=== PATIENT | male | born 1985 | race Caucasian/White ===

== ENCOUNTER → 2016-03-14 | Outpatient (CLI) | payer OTHER ==
--- NOTE | 2016-03-14 12:46 | XR ---
EXAMINATION TYPE: XR shoulder complete LT DATE OF EXAM: 03/14/2016 12:40 PM COMPARISON: NONE HISTORY: Pain TECHNIQUE: Left shoulder examined in 3 views FINDINGS: The humeral head articulates with the glenoid. The acromio-clavicular junction is normal. No acute fractures or dislocations are evident. A follow up study can be performed 7-10 days from acute trauma for continued pain. IMPRESSION: 1. Normal left Shoulder
== END | disposition home or self-care (01) ==
LOC: RADXRMAIN 12:23
PROVIDERS: ATTEND Family Medicine
DX: S46.012A Strain of muscle(s) and tendon(s) of the rotator cuff of left shoulder, initial encounter (principal)

== ENCOUNTER 2016-05-10 17:03 | Emergency (ER) | payer OTHER ==
[2016-05-10 17:42] VITALS: RESP 18; TEMP 98.2
--- NOTE | 2016-05-10 18:50 | ED ---
Psych HPI - General Source: patient, family, RN notes reviewed Mode of arrival: ambulatory <Tushar Barrientos - Last Filed: 05/10/16 18:49> <Emir Russo - Last Filed: 05/10/16 21:32> - General Chief Complaint: Psychiatric Symptoms Stated Complaint: Suicidal Time Seen by Provider: 05/10/16 17:50 - History of Present Illness Initial Comments: 30-year-old male presents emergency Department with chief complaint of depression, suicidal thoughts. Patient states that he hasn't lost any history of this problem. Patient does take medications currently see a psychiatrist. Patient states that symptoms are getting worse today. Patient does not have a plan. Denies any illicit drug or of all use. Patient offers no complaints. ( Tushar Barrietnos) - Related Data Home Medications Medication Instructions Recorded Confirmed Docusate Sodium [Stool Softener] 100 mg PO DAILY 07/21/13 05/10/16 FLUoxetine HCL [PROzac] 20 mg PO DAILY 05/10/16 05/10/16 Ferrous Sulfate [Feosol] 325 mg PO TID 05/10/16 05/10/16 Multivitamin [Multivitamins Adult 1 tab PO DAILY 05/10/16 05/10/16 Gummies] OLANZapine [ZyPREXA] 20 mg PO DAILY@1900 05/10/16 05/10/16 Allergies Allergy/AdvReac Type Severity Reaction Status Date / Time adhesive AdvReac Itching Verified 05/10/16 17:41 Review of Systems ROS Other: All systems not noted in ROS Statement are negative. <Tushar Barrientos - Last Filed: 05/10/16 18:49> ROS Other: All systems not noted in ROS Statement are negative. <Emir Russo - Last Filed: 05/10/16 21:32> ROS Statement: Those systems with pertinent positive or pertinent negative responses have been documented in the HPI. Past Medical History Past Medical History: GERD/Reflux Additional Past Medical History / Comment(s): anemia, growth delay History of Any Multi-Drug Resistant Organisms: None Reported Past Surgical History: No Surgical Hx Reported Past Anesthesia/Blood Transfusion Reactions: No Reported Reaction Past Psychological History: Anxiety, Depression, Schizophrenia Smoking Status: Never smoker Past Alcohol Use History: None Reported Past Drug Use History: None Reported - Past Family History Father Additional Family Medical History / Comment(s): Stomach surgery of unknown reason. <FloydTushar - Last Filed: 05/10/16 18:49> General Exam Limitations: no limitations General appearance: alert, in no apparent distress Head exam: Present: atraumatic, normocephalic, normal inspection Eye exam: Present: normal appearance, PERRL, EOMI. Absent: scleral icterus, conjunctival injection, periorbital swelling ENT exam: Present: normal exam, normal oropharynx, mucous membranes moist, TM's normal bilaterally Neck exam: Present: normal inspection, full ROM. Absent: tenderness, meningismus, lymphadenopathy Respiratory exam: Present: normal lung sounds bilaterally. Absent: respiratory distress, wheezes, rales, rhonchi, stridor Cardiovascular Exam: Present: regular rate, normal rhythm, normal heart sounds. Absent: systolic murmur, diastolic murmur, rubs, gallop, clicks GI/Abdominal exam: Present: soft, normal bowel sounds. Absent: distended, tenderness, guarding, rebound, rigid Neurological exam: Present: alert, oriented X3, CN II-XII intact Psychiatric exam: Present: flat affect Skin exam: Present: warm, dry, intact, normal color. Absent: rash <FloydTushar Siddharth - Last Filed: 05/10/16 18:49> Medical Decision Making <Tushar Barrientos - Last Filed: 05/10/16 18:49> <Emir Russo - Last Filed: 05/10/16 21:32> - Medical Decision Making The patient was evaluated by psychiatric nurse. Plans for the patient follow- up tomorrow for [facility] intake. Patient denying thoughts of hurting himself at this time. (Emir Russo) Disposition <Tushar Barrientos - Last Filed: 05/10/16 18:49> Time of Disposition: 21:32 <Emir Russo - Last Filed: 05/10/16 21:32> Clinical Impression: Depression Disposition: HOME SELF-CARE Condition: Stable Instructions: Depression (ED) Additional Instructions: Follow-up tomorrow morning as arranged with [facility]. Return emergency room as needed
[2016-05-10 21:42] VITALS: BP 123/63; PULSE 55
== END 2016-05-10 21:42 | disposition home or self-care (01) ==
LOC: EEVIPCON 17:03 → EC 17:03
DX: F32.9 Major depressive disorder, single episode, unspecified (principal); R45.851 Suicidal ideations; F20.9 Schizophrenia, unspecified; F41.9 Anxiety disorder, unspecified; Z79.899 Other long term (current) drug therapy; Z91.048 Other nonmedicinal substance allergy status
CPT/HCPCS: 82075; 99284

== ENCOUNTER 2016-06-22 10:35 | Day surgery (SDC) | payer OTHER ==
[2016-06-19 14:54] VITALS: BMI 21.9
[~2016-06-22 10:35] MED LIST: LACTATED RINGERS 1,000 ML IV SCH
[2016-06-22 11:13] VITALS: RESP 16; TEMP 98.4
[2016-06-22] MEDS ORDERED: LIDOCAINE 1% 20 ML VIAL (10MG/ML) FOR IV START INTRADERMA ONE (11:21)
[2016-06-22] MEDS ORDERED: LIDOCAINE 1% INJ 10MG/ML (20 ML MDV) ONE (11:57)
[2016-06-22] MEDS ORDERED: PROPOFOL 10 MG/ML 20 ML VIAL IV ONE (11:57)
--- NOTE | 2016-06-22 12:52 | P.PCN ---
Date of Procedure: 06/22/16 Procedure(s) Performed: Procedure: 1. Esophagogastroduodenoscopy and biopsy. 2. Total colonoscopy. Preoperative diagnosis: Iron deficiency anemia. Postoperative diagnosis: 1. Small sliding hiatal hernia with no obvious esophagitis or complicated reflux disease. 2. Mild antral gastritis. 3. Normal colonoscopy. Preparation: HalfLytely prep. Sedation: Was provided by anesthesia. Brief clinical history: The patient is a 30-year-old male who is referred for this evaluation for iron deficiency anemia to rule out the possibility of GI source of bleeding. Procedure: With the patient on his left lateral decubitus position and after informed consent and adequate sedation, I passed the Olympus-GIF 160 video upper endoscope through the cricopharyngeus down the esophagus. GE junction was around 36 cm from the incisors. There was small sliding hiatal hernia. The esophagus did not show any obvious erosions, ulcers, strictures or Silva' s esophagus. The stomach was then insufflated with air and inspected in detail including the retroflex view in the cardia. There was some minimal mottling and erythema in the antrum consistent with mild gastritis but no ulcers or erosions. Pyloric channel, duodenal bulb, post bulbar area and descending duodenum appeared within normal limit. Because of his symptoms, I obtained multiple biopsies from the duodenum, antrum and esophagus then the endoscope was withdrawn and I proceeded to do colonoscopy. Perianal area did not show any fissures or fistulas. There were no masses felt on digital rectal examination. The Olympus CFQ 160L video colonoscope was then inserted in the rectum in the usual fashion and advanced to the cecum. The mucosa appeared healthy. No polyps or tumors were seen or any obvious diverticular disease or bleeding. I retroflexed the endoscope in the rectum before the endoscope was withdrawn. The patient tolerated the procedure well. Plan: I discussed the findings with the patient and his family. Will await biopsy results and make further plans based on his course and biopsy results. He will follow up with you as planned.
[2016-06-22 13:25] VITALS: BP 102/68; PULSE 78
== END 2016-06-22 14:05 | disposition home or self-care (01) ==
LOC: ORWHC2ENDO 10:35
DX: D50.9 Iron deficiency anemia, unspecified (principal); K21.0 Gastro-esophageal reflux disease with esophagitis; K29.50 Unspecified chronic gastritis without bleeding; K44.9 Diaphragmatic hernia without obstruction or gangrene; F20.9 Schizophrenia, unspecified; Z79.899 Other long term (current) drug therapy
CPT/HCPCS: 88305; 88342; 45378; 43239; J2001; J2704

== ENCOUNTER → 2021-11-07 | Outpatient (CLI) | payer OTHER ==
--- NOTE | 2021-11-07 09:29 | US ---
EXAMINATION TYPE: US abdomen complete DATE OF EXAM: 11/07/2021 COMPARISON: NONE CLINICAL HISTORY: R11.2 NAUSEA WITH VOMITING, UNSPECIFIED. TECHNIQUE: Multiple sonographic images of the abdomen are obtained. FINDINGS: EXAM MEASUREMENTS: Liver Length: 15.1 cm Gallbladder Wall: cm CBD: 0.3 cm Spleen: 13.3 cm Right Kidney: 9.0 x 4.2 x 4.0 cm Left Kidney: 11.2 x 5.2 x 4.2 cm SOFTWARE LICENSING ANALYST NOTES: Pancreas: wnl Liver: Homogenous without evidence of mass Gallbladder: No gallstones Evidence for sonographic Whaley's sign: None CBD: wnl Spleen: wnl Right Kidney: wnl Left Kidney: wnl Upper IVC: wnl Abd Aorta: wnl Prominent thomas hepatis lymph nodes measuring up to 14 mm in short axis. The liver is homogenous. The intrahepatic portion of the IVC and proximal abdominal aorta are within normal limits. There is no evidence of cholelithiasis. Common bile duct is unremarkable. The visu alized portions of the pancreas are homogenous. The spleen is unremarkable. Kidneys are symmetric a nd free of hydronephrosis. No renal lesions are seen. IMPRESSION: No evidence for acute process.
== END | disposition home or self-care (01) ==
LOC: RADUSWWP 07:51
PROVIDERS: ATTEND Family Medicine
DX: R11.2 Nausea with vomiting, unspecified (principal)
CPT/HCPCS: 76700

== ENCOUNTER 2023-04-05 14:05 | Inpatient (IN) | payer MEDICAID, OTHER ==
[2023-04-05 15:09] LABS: Cocaine Screen,Urine Not Detected (NotDetected); Phencyclidine Screen,Urine Not Detected (NotDetected); Urn Cannabinoid Scrn Not Detected (NotDetected)
[2023-04-05 15:10] LABS: Amphetamine Screen,Urine Not Detected (NotDetected); Barbiturate Screen,Urine Not Detected (NotDetected); Benzodiazepines Screen,Urine Not Detected (NotDetected); Methadone Screen, Urine Not Detected (NotDetected); Opiate Screen,Urine Not Detected (NotDetected); Oxycodone Screen, Urine Not Detected (NotDetected); Tricyclic Antidepressant,Urine Not Detected (NotDetected)
--- NOTE | 2023-04-05 15:30 | ED ---
Psych HPI - General Source: patient, family, police, RN notes reviewed Mode of arrival: ambulatory Limitations: no limitations <Tushar Barrientos - Last Filed: 04/06/23 07:10> - General Source: patient, family, police, RN notes reviewed, old records reviewed Mode of arrival: ambulatory Limitations: no limitations, altered mental status - History of Present Illness MD Complaint: altered mental status, other (Psychosis) Associated Psychiatric Symptoms: homicidal ideation, racing thoughts, auditory hallucinations, visual hallucinations, delusions Quality: constant, getting worse Improves With: none Worsens With: none Associated Symptoms: denies other symptoms Treatments Prior to Arrival: placed on mental health hold <Tyree Davey - Last Filed: 04/09/23 07:53> - General Chief Complaint: Psychiatric Symptoms Stated Complaint: petition Time Seen by Provider: 04/05/23 14:15 - History of Present Illness Initial Comments: 37-year-old male presents emergency department with police for psychiatric evaluation. Patient states that he is very paranoid, feeling suicidal at times. Family states that he has been extremely paranoid standing outside because he believes devils in his house. Patient has not been taking his psychiatric medications denies any illicit drug use or alcohol use currently. (Tushar Barrientos) This is a 37-year-old male who presents today for psychiatric evaluation today by the police department and is under petition, patient is off his psychiatric medication (Tyree Davey) - Related Data Home Medications Medication Instructions Recorded Confirmed No Known Home Medications 04/05/23 04/05/23 Allergies Allergy/AdvReac Type Severity Reaction Status Date / Time adhesive AdvReac Itching Verified 04/05/23 21:42 Review of Systems ROS Other: All systems not noted in ROS Statement are negative. <Tushar Barrientos - Last Filed: 04/06/23 07:10> ROS Other: All systems not noted in ROS Statement are negative. <Tyree Davey - Last Filed: 04/09/23 07:53> ROS Statement: Those systems with pertinent positive or pertinent negative responses have been documented in the HPI. Past Medical History Past Medical History: GERD/Reflux Additional Past Medical History / Comment(s): anemia, growth delay History of Any Multi-Drug Resistant Organisms: None Reported Past Surgical History: No Surgical Hx Reported Past Anesthesia/Blood Transfusion Reactions: No Reported Reaction Past Psychological History: Anxiety, Depression, Schizophrenia Smoking Status: Current every day smoker Past Alcohol Use History: None Reported Past Drug Use History: None Reported - Past Family History Father Additional Family Medical History / Comment(s): Stomach surgery of unknown reason. <Tushar Barrientos - Last Filed: 04/06/23 07:10> General Exam Limitations: no limitations General appearance: alert, in no apparent distress Head exam: Present: atraumatic, normocephalic, normal inspection Eye exam: Present: normal appearance, PERRL, EOMI. Absent: scleral icterus, conjunctival injection, periorbital swelling ENT exam: Present: normal oropharynx (Edentulous), mucous membranes moist Neck exam: Present: normal inspection, full ROM. Absent: tenderness, meningismus, lymphadenopathy Respiratory exam: Present: normal lung sounds bilaterally. Absent: respiratory distress, wheezes, rales, rhonchi, stridor Cardiovascular Exam: Present: regular rate, normal rhythm, normal heart sounds. Absent: systolic murmur, diastolic murmur, rubs, gallop, clicks Neurological exam: Present: alert, oriented X3 Psychiatric exam: Present: anxious Skin exam: Present: warm, dry, intact, normal color. Absent: rash <Tushar Barrientos M - Last Filed: 04/06/23 07:10> General appearance: alert, in no apparent distress Head exam: Present: atraumatic, normocephalic, normal inspection Eye exam: Present: normal appearance, PERRL, EOMI. Absent: scleral icterus, conjunctival injection, periorbital swelling ENT exam: Present: normal exam, mucous membranes moist Neck exam: Present: normal inspection. Absent: tenderness, meningismus, lymphadenopathy Respiratory exam: Present: normal lung sounds bilaterally. Absent: respiratory distress, wheezes, rales, rhonchi, stridor Cardiovascular Exam: Present: regular rate, normal rhythm, normal heart sounds. Absent: systolic murmur, diastolic murmur, rubs, gallop, clicks GI/Abdominal exam: Present: soft, normal bowel sounds. Absent: distended, tenderness, guarding, rebound, rigid Extremities exam: Present: normal inspection, full ROM, normal capillary refill. Absent: tenderness, pedal edema, joint swelling, calf tenderness Back exam: Present: normal inspection Neurological exam: Present: alert, oriented X3, CN II-XII intact Psychiatric exam: Present: normal affect, normal mood Skin exam: Present: warm, dry, intact, normal color. Absent: rash <Tyree Davey - Last Filed: 04/09/23 07:53> Course <Tyree Davey - Last Filed: 04/09/23 07:53> Vital Signs 04/05/23 14:11 Temperature 98 F Pulse Rate 65 Respiratory 18 Rate Blood Pressure 109/71 O2 Sat by Pulse 97 Oximetry - Reevaluation(s) Reevaluation #1: 04/05/23 17:24 Record review (Tyree Davey) Reevaluation #2: 04/05/23 17:24 Care for psychiatric evaluation (Tyree Davey) Medical Decision Making <Tushar Barrientos - Last Filed: 04/06/23 07:10> - Lab Data Result diagrams: 04/06/23 07:56 04/06/23 07:56 <Tyree Davey - Last Filed: 04/09/23 07:53> - Medical Decision Making Was pt. sent in by a medical professional or institution (, PA, SENIOR BIOINFORMATICS SCIENTIST, urgent care, hospital, or shelter...) When possible be specific @ -No Did you speak to anyone other than the patient for history (EMS, parent, family, police, friend...)? What history was obtained from this source @ -Family providing significant history Did you review nursing and triage notes (agree or disagree)? Why? @ -I reviewed and agree with nursing and triage notes Were old charts reviewed (outside hosp., previous admission, EMS record, old EKG, old radiological studies, urgent care reports/EKG's, shelter records)? Report findings @ -No old charts were reviewed Differential Diagnosis (chest pain, altered mental status, abdominal pain women, abdominal pain men, vaginal bleeding, weakness, fever, dyspnea, syncope, headache, dizziness, GI bleed, back pain, seizure, CVA, palpatations, mental health, musculoskeletal)? @ -Differential Mental Health Depression, anxiety, bipolar, psychosis, schizophrenia, borderline personality, situational depression, adjustment disorder, behavioral disorder, brain tumor, malingering, substance abuse, encephalopathy, medication reaction, dementia, hypothyroidism, degenerative neurologic disorder, lupus.... This is not meant to be all-inclusive list EKG interpreted by me (3pts min.). @ -As above X-rays interpreted by me (1pt min.). @ -None done CT interpreted by me (1pt min.). @ -None done U/S interpreted by me (1pt. min.). @ -None done What testing was considered but not performed or refused? (CT, X-rays, U/S, labs)? Why? @ -None What meds were considered but not given or refused? Why? @ -None Did you discuss the management of the patient with other professionals (professionals i.e. , PA, SENIOR BIOINFORMATICS SCIENTIST, lab, RT, psych nurse, manager social work, sports marketing specialist, teacher, school resource officer, family manager)? Give summary @ -EPS evaluated the patient will be admitted for psychiatric treatment] Was smoking cessation discussed for >3mins.? @ -No Was critical care preformed (if so, how long)? @ -No Were there social determinants of health that impacted care today? How? (Homelessness, low income, unemployed, alcoholism, drug addiction, trans portation, low edu. Level, literacy, decrease access to med. care, skilled nursing, rehab)? @ -No Was there de-escalation of care discussed even if they declined (Discuss DNR or withdrawal of care, Hospice)? DNR status @ -No What co-morbidities impacted this encounter? (DM, HTN, Smoking, COPD, CAD, Cancer, CVA, ARF, Chemo, Hep., AIDS, mental health diagnosis, sleep apnea, morbid obesity)? @ -None Was patient admitted / discharged? Hospital course, mention meds given and route, prescriptions, significant lab abnormalities, going to OR and other pertinent info. @ -[Admitted to psychiatric services Undiagnosed new problem with uncertain prognosis? @ -No Drug Therapy requiring intensive monitoring for toxicity (Heparin, Nitro, Insulin, Cardizem)? @ -No Were any procedures done? @ -No Diagnosis/symptom? @ -Depression, suicidal ideation schizophrenia] Acute, or Chronic, or Acute on Chronic? @ -Acute Uncomplicated (without systemic symptoms) or Complicated (systemic symptoms)? @ -[Uncomplicated Side effects of treatment? @ -No Exacerbation, Progression, or Severe Exacerbation? @ -No Poses a threat to life or bodily function? How? (Chest pain, [place], [place], pneumonia, PE, COPD, DKA, ARF, appy, cholecystitis, CVA, Diverticulitis, Homicidal, Suicidal, threat to staff... and all critical care pts) @ -[Yes patient has suicidal (Tushar Barrientos) 37 male will be admitted for psychiatric evaluation and treatment (Tyree Davey) - Lab Data Lab Results 04/05/23 04/05/23 Range/Units 14:42 16:36 Urine Opiates Screen Not Detected (NotDetected) Ur Oxycodone Screen Not Detected (NotDetected) Urine Methadone Screen Not Detected (NotDetected) Ur Barbiturates Screen Not Detected (NotDetected) U Tricyclic Antidepress Not Detected (NotDetected) Ur Phencyclidine Scrn Not Detected (NotDetected) Ur Amphetamines Screen Not Detected (NotDetected) U Methamphetamines Scrn Not Detected (NotDetected) U Benzodiazepines Scrn Not Detected (NotDetected) Urine Cocaine Screen Not Detected (NotDetected) U Marijuana (THC) Screen Not Detected (NotDetected) Influenza Type A (PCR) Not Detected (Not Detectd) Influenza Type B (PCR) Not Detected (Not Detectd) RSV (PCR) Not Detected (Not Detectd) SARS-CoV-2 (PCR) Not Detected (Not Detectd) Disposition Is patient prescribed a controlled substance at d/c from ED?: No <Tushar Barrientos - Last Filed: 04/06/23 07:10> Is patient prescribed a controlled substance at d/c from ED?: No <Tyree Davey - Last Filed: 04/09/23 07:53> Clinical Impression: Schizophrenia, paranoid type, Psychosis, Acute psychosis Disposition: TRANSFER TO PSYCH HOSP/UNIT Condition: Fair
[2023-04-05] MEDS ORDERED: MAG HYDROX/AL HYDROX/SIMETH 30 ML CUP PO PRN (20:06)
[2023-04-05] MEDS ORDERED: IBUPROFEN 600 MG TAB PO PRN (20:06)
[2023-04-05] MEDS ORDERED: MAGNESIUM HYDROXIDE 2,400 MG/30 ML CUP PO PRN (20:06)
[2023-04-05] MEDS ORDERED: ACETAMINOPHEN TAB 325 MG TAB PO PRN (20:06)
[2023-04-05] MEDS ORDERED: LORazepam 2 MG/ML INJ IM PRN (20:11)
[2023-04-05] MEDS ORDERED: HALOPERIDOL LACTATE 5 MG/ML 1 ML VIAL IM PRN (20:11)
[2023-04-05] MEDS ORDERED: haloperidoL 5 MG TAB PO PRN (20:11)
[2023-04-05] MEDS ORDERED: LORazepam 1 MG TAB PO PRN (20:11)
[2023-04-06 08:34] LABS: Basophils % (A) 0 %; Eosinophils # (A) 0.2 k/uL (0-0.7); Eosinophils % (A) 1 %; HCT 41.3 % (39.0-53.0); HGB 13.1 gm/dL (13.0-17.5); Hypochromasia Slight; Lymphocytes # (A) 1.5 k/uL (1.0-4.8); Lymphocytes % (A) 13 %; MCH 25.1 pg (25.0-35.0); MCHC 31.9 g/dL (31.0-37.0); MCV 78.8 fL (80.0-100.0); Mean Platelet Volume 7.1; Monocytes # (A) 0.5 k/uL (0-1.0); Monocytes % (A) 4 %; Neutrophils # (A) 9.5 k/uL (1.3-7.7); Neutrophils % (A) 81 %; Platelet Count 316 k/uL (150-450); RBC 5.24 m/uL (4.30-5.90); RDW 13.9 % (11.5-15.5); WBC 11.8 k/uL (3.8-10.6)
[2023-04-06 08:46] LABS: Potassium 4.3 mmol/L (3.5-5.1)
[2023-04-06 08:47] LABS: ALT 10 U/L (4-49); AST 20 U/L (17-59); African American GFR (CKD) >90 (>60 ml/min/1.73 sqM); Albumin 4.3 g/dL (3.5-5.0); Alkaline Phosphatase 74 U/L (38-126); Anion Gap 13 mmol/L; Blood Urea Nitrogen 21 mg/dL (9-20); Calcium 9.5 mg/dL (8.4-10.2); Carbon Dioxide 25 mmol/L (22-30); Chloride 103 mmol/L (98-107); Glucose 85 mg/dL (74-99); Non-African American GFR(CKD) >90 (>60 ml/min/1.73 sqM); Sodium 141 mmol/L (137-145); Total Protein 8.1 g/dL (6.3-8.2)
[2023-04-06] MEDS ORDERED: NICOTINE 14MG/24HR PATCH TRANSDERM SCH (09:00)
[2023-04-06] MEDS ORDERED: MELATONIN 5 MG TABLET PO PRN (14:03)
--- NOTE | 2023-04-06 15:03 | P.HP ---
Psychiatric H&P - . H&P Date: 04/06/23 History & Physical: Allergies Allergy/AdvReac Type Severity Reaction Status Date / Time adhesive AdvReac Itching Verified 04/05/23 21:42 Vital Signs Temp 98.5 F 04/06/23 06:58 Pulse 67 04/06/23 06:58 Resp 14 04/06/23 06:58 BP 120/65 04/06/23 06:58 Pulse Ox 98 04/05/23 21:17 FiO2 Intake & Output 04/05/23 04/06/23 04/06/23 18:59 06:59 18:59 Weight 49.895 kg 46 kg 46 kg Laboratory Last Values WBC 11.8 k/uL (3.8-10.6) H 04/06/23 07:56 RBC 5.24 m/uL (4.30-5.90) 04/06/23 07:56 Hgb 13.1 gm/dL (13.0-17.5) 04/06/23 07:56 Hct 41.3 % (39.0-53.0) 04/06/23 07:56 MCV 78.8 fL (80.0-100.0) L 04/06/23 07:56 MCH 25.1 pg (25.0-35.0) 04/06/23 07:56 MCHC 31.9 g/dL (31.0-37.0) 04/06/23 07:56 RDW 13.9 % (11.5-15.5) 04/06/23 07:56 Plt Count 316 k/uL (150-450) 04/06/23 07:56 MPV 7.1 04/06/23 07:56 Neutrophils % 81 % 04/06/23 07:56 Lymphocytes % 13 % 04/06/23 07:56 Monocytes % 4 % 04/06/23 07:56 Eosinophils % 1 % 04/06/23 07:56 Basophils % 0 % 04/06/23 07:56 Neutrophils # 9.5 k/uL (1.3-7.7) H 04/06/23 07:56 Lymphocytes # 1.5 k/uL (1.0-4.8) 04/06/23 07:56 Monocytes # 0.5 k/uL (0-1.0) 04/06/23 07:56 Eosinophils # 0.2 k/uL (0-0.7) 04/06/23 07:56 Basophils # 0.0 k/uL (0-0.2) 04/06/23 07:56 Hypochromasia Slight 04/06/23 07:56 Sodium 141 mmol/L (137-145) 04/06/23 07:56 Potassium 4.3 mmol/L (3.5-5.1) 04/06/23 07:56 Chloride 103 mmol/L (98-107) 04/06/23 07:56 Carbon Dioxide 25 mmol/L (22-30) 04/06/23 07:56 Anion Gap 13 mmol/L 04/06/23 07:56 BUN 21 mg/dL (9-20) H 04/06/23 07:56 Creatinine 0.97 mg/dL (0.66-1.25) 04/06/23 07:56 Est GFR (CKD-EPI)AfAm >90 (>60 ml/min/1.73 sqM) 04/06/23 07:56 Est GFR (CKD-EPI)NonAf >90 (>60 ml/min/1.73 sqM) 04/06/23 07:56 Glucose 85 mg/dL (74-99) 04/06/23 07:[address] Glu mg/dL 108 mg/dL 04/06/23 07:56 Hemoglobin A1c 5.4 % (<=6.0) 04/06/23 07:56 Calcium 9.5 mg/dL (8.4-10.2) 04/06/23 07:56 Total Bilirubin 1.0 mg/dL (0.2-1.3) 04/06/23 07:56 AST 20 U/L (17-59) 04/06/23 07:56 ALT 10 U/L (4-49) 04/06/23 07:56 Alkaline Phosphatase 74 U/L (38-126) 04/06/23 07:56 Total Protein 8.1 g/dL (6.3-8.2) 04/06/23 07:56 Albumin 4.3 g/dL (3.5-5.0) 04/06/23 07:56 TSH 1.970 mIU/L (0.465-4.680) 04/06/23 07:56 Urine Opiates Screen Not Detected (NotDetected) 04/05/23 14:42 Ur Oxycodone Screen Not Detected (NotDetected) 04/05/23 14:42 Urine Methadone Screen Not Detected (NotDetected) 04/05/23 14:42 Ur Barbiturates Screen Not Detected (NotDetected) 04/05/23 14:42 U Tricyclic Antidepress Not Detected (NotDetected) 04/05/23 14:42 Ur Phencyclidine Scrn Not Detected (NotDetected) 04/05/23 14:42 Ur Amphetamines Screen Not Detected (NotDetected) 04/05/23 14:42 U Methamphetamines Scrn Not Detected (NotDetected) 04/05/23 14:42 U Benzodiazepines Scrn Not Detected (NotDetected) 04/05/23 14:42 Urine Cocaine Screen Not Detected (NotDetected) 04/05/23 14:42 U Marijuana (THC) Screen Not Detected (NotDetected) 04/05/23 14:42 Influenza Type A (PCR) Not Detected (Not Detectd) 04/05/23 16:36 Influenza Type B (PCR) Not Detected (Not Detectd) 04/05/23 16:36 RSV (PCR) Not Detected (Not Detectd) 04/05/23 16:36 SARS-CoV-2 (PCR) Not Detected (Not Detectd) 04/05/23 16:36 04/06/23 13:29 IDENTIFYING DATA: Patient is a 37-year-old male, currently lives alone in an apartment, has no kids, collect Social Security HPI: Patient presented to the hospital on 04/05 brought in by police for psychiatric evaluation. Patient was petitioned and stated that patient was talking about hearing voices from angels, has been walking around in the rain with no jacket, patient apparently has not been taking his medications at home. He was also claiming that he believes that there is a devil in his apartment. Patient was seen today laying in bed and agreeable to speak to teletypewriter operator briefly. He was a poor historian. He was fairly concrete, hesitant and tearful when teletypewriter operator attempted to speak with him. He had significant thought blocking during the interview. He was responding to internal stimuli as well. He was fairly illogical. He did not know today's date however does know his name and age. He spoke about "the Bible" however was not able to communicate his feelings. He appeared to be in mild distress. States that he is hearing voices and states that "it is mostly mean". Denies any visual hallucinations. Patient denies any suicidal or homicidal ideations intent or plan. At this time patient denies any visual hallucinations. Patient denies any flight of ideas racing thoughts and increased in goal directed behavior. Patient admits to using no recreational drugs or cigarettes. PAST PSYCHIATRIC HISTORY: Patient states that he has a history of intellectual disability and schizophrenia. Patient was previously on Seroquel, Prozac, Zyprexa. Patient was last psychiatrically hospitalized on mental health unit in 2013. Patient currently follows up with the nurse practitioner at [facility] last was seen early March. Patient denies any history of suicide attempts in the past. Past Medical History: GERD/Reflux Additional Past Medical History / Comment(s): anemia, growth delay History of Any Multi-Drug Resistant Organisms: None Reported Past Surgical History: No Surgical Hx Reported Past Anesthesia/Blood Transfusion Reactions: No Reported Reaction Past Psychological History: Anxiety, Depression, Schizophrenia Smoking Status: Current every day smoker Past Alcohol Use History: None Reported Past Drug Use History: None Reported ALLERGIES: as per EMR CHEMICAL DEPENDENCY HISTORY: as per HPI FAMILY PSYCHIATRIC/SUBSTANCE USE HISTORY: Denies SOCIAL HISTORY: Patient was born and raised in [place] and then moved to [place]. He denies any legal history. He has no kids, he collect Social Security. He lives alone in an apartment. MENTAL STATUS EXAM: General Appearance: Patient appears to be thin, poor dentition, long hair, stated age is alert, appears to be responding to internal stimuli. Patient appears to have poor hygiene and grooming. Behavior: Patient is laying in bed, tearful. Internally preoccupied Speech: Patient's speech is fluent and nonpressured. [place], hesitant Mood/Affect: Patient reports their mood is depressed, affect is congruent and tearful Suicidality/Homicidality: Patient denies having any homicidal ideation intent or plan. Denies any suicidal ideations intent or plan Perceptions: Patient denies any visual hallucinations claims that he is hearing voices. Though content/process: Delusional, bizarre, illogical. Wallace. Memory and concentration: AOX2, grossly intact for the purposes of this session. Cannot spell "WORLD" backwards Judgment and insight: Chronically limited/poor STRENGTHS/WEAKNESSES: strength is that patient is resilient. Weakness is that patient has poor judgment and is impulsive INTELLECT: Average IMPRESSIONS: Schizophrenia Noncompliance with medications PLAN: -Patient is admitted under involuntary status to MHU for stabilization of psychiatric symptoms and safety. Patient has not signed adult voluntary form and medication consent and is placed in patient's chart. A second certification was completed and along with petition will be filed for court. -Medications : Invega p.o. 3 mg nightly for psychosis, Zoloft 50 mg nightly for mood/anxiety, melatonin nightly as needed for sleep. -Ativan and Haldol PRN for agitation/aggression -Patient was informed of the risks, benefits and side effects of the medication -Internal Medicine consult to perform medical evaluation and physical. -NRT -not needed as patient does not smoke -SW on board for discharge planning. Encourage patient to participate in groups to work on coping skills. Will await deferral and court date. 04/06/23 14:56 04/06/23 15:02
--- NOTE | 2023-04-06 15:56 | P.HPIM ---
History of Present Illness H&P Date: 04/06/23 Chief Complaint: History and physical This is a 37-year-old gentleman well-known to the practice of both Dr. Wynne and Dr. Sun with past medical history significant for developmental delay, iron deficiency anemia, depression and multiple other medical issues. Patient had stopped taking his medications, feeling depressed, suicidal at times as well as paranoid. Family reported to ER that he was standing outside his house without a raincoat in the rain as he believed there to be devils in his house, hearing voices. Denies any chest pain, palpitations or shortness of breath. Maintaining O2 sats in the high 90s to 100% on room air. denies any lightheadedness dizziness or focal deficits. Denies nausea vomiting or diarrhea. Denies abdominal pain. Afebrile, WBC 11.8, hemoglobin 13.1, platelets 316, electrolytes within normal limits, hemoglobin A1c 5.4. Influenza type a/type B, RSV, COVID not detected. Toxicology screen negative. Review of Systems ROS Statement: Those systems with pertinent positive or pertinent negative responses have been documented in the HPI. ROS Other: All systems not noted in ROS Statement are negative Past Medical History Past Medical History: GERD/Reflux Additional Past Medical History / Comment(s): anemia, growth delay History of Any Multi-Drug Resistant Organisms: None Reported Past Surgical History: No Surgical Hx Reported Past Anesthesia/Blood Transfusion Reactions: No Reported Reaction Past Psychological History: Anxiety, Depression, Schizophrenia Smoking Status: Current every day smoker Past Alcohol Use History: None Reported Past Drug Use History: None Reported - Past Family History Father Additional Family Medical History / Comment(s): Stomach surgery of unknown reason. Medications and Allergies Home Medications Medication Instructions Recorded Confirmed Type No Known Home Medications 04/05/23 04/05/23 History Allergies Allergy/AdvReac Type Severity Reaction Status Date / Time adhesive AdvReac Itching Verified 04/05/23 21:42 Physical Exam Vitals: Vital Signs Temp Pulse Pulse Resp BP BP Pulse Ox 04/06/23 06:58 98.5 F 67 14 120/65 04/05/23 21:17 97.8 F 69 18 125/68 98 04/05/23 20:22 97.4 F L 86 18 123/72 100 04/05/23 14:11 98 F 65 18 109/71 97 Intake and Output 04/05/23 04/06/23 04/06/23 22:59 06:59 14:59 Other: Weight 46 kg 46 kg General: [Patient awake, alert and oriented times 3. Patient in no acute distr ess.] HEENT: [PERRL. EOMI. No pharyngeal erythema or exudate.] Neck: [No adenopathy.] Cardiac: [Heart regular in rate and rhythm. No S3. No S4. No clicks, rubs. No murmur.] Lungs: [Clear to auscultation bilaterally.] Abdomen: [No mass. No organomegaly. Bowel sounds presnt and normoactive in all 4 quadrants.] Extremes: [No edema no cyanosis no claudication normal pulses] Skin: [No rash.] Neurologic: [No lateralizing deficits. CN II - XII grossly intact.] Lymphatic: [No adenopathy.] Results CBC & Chem 7: 04/06/23 07:56 04/06/23 07:56 Labs: Abnormal Lab Results - Last 24 Hours (Table) 04/06/23 04/06/23 Range/Units 07:56 07:56 WBC 11.8 H (3.8-10.6) k/uL MCV 78.8 L (80.0-100.0) fL Neutrophils # 9.5 H (1.3-7.7) k/uL BUN 21 H (9-20) mg/dL Thrombosis Risk Factor Assmnt - Choose All That Apply Any of the Below Risk Factors Present?: No Other Risk Factors: No Thrombosis Risk Factor Assessment Level: Very Low Risk Assessment and Plan Assessment: Acute psychosis, noncompliance with medications Schizophrenia, paranoid by history Mental retardation by history Chronic mental illness Iron deficient anemia, history of Plan: Continue on current medication regime, monitoring and symptomatic treatment. Will continue to follow along prn. Please do not hesitate to call with any questions or concerns. The impression and plan of care has been dictated as directed. : I performed a history and examination of this patient, discussed the same with the dictator. I agree with the dictator's note ,documented as a scribe. Any additional findings or plans will be noted.
[2023-04-06] MEDS: PANTOPRAZOLE 40 MG TABLET PO SCH (16:28)
[2023-04-06] MEDS: SERTRALINE 50 MG TAB PO SCH (20:52)
[2023-04-06] MEDS: PALIPERIDONE 3 MG TAB.ER.24 PO SCH (20:52)
[2023-04-07] MEDS: PANTOPRAZOLE 40 MG TABLET PO SCH (08:23)
--- NOTE | 2023-04-07 11:26 | P.PN ---
Progress Note - Text Interval history: Patient was seen [wandering the hallways] and was directable and agreeable to speak with freelance copywriter. Reports hallucinations. At this time patient denies any suicidal or homicidal ideations intent or plan. Patient denies any side effects from the medications and has been compliant with meds. Mental status exam: General Appearance: [Patient appears to be older than stated age is alert, directable, and cooperative.] Behavior: [No agitated behavior. Patient is calm and directable] Speech: Patient's speech is fluent and nonpressured. Mood/Affect: Mood is improving mildly, affect is congruent and constricted. Suicidality/Homicidality: Patient denies having any suicidal or homicidal ideation intent or plan. Perceptions: Reports hallucinations, responding to internal stimuli, very internally preoccupied Though content/process: Delusions not elicited, goal-directed thought processes Memory and concentration: AOX3, grossly intact for the purposes of this session Judgment and insight: improving mildly Assessment/Plan: Continue with current diagnosis. Patient continues to meet criteria for inpatient psychiatric admission for symptom stabilization and safety.[Patient will be maintained on current psychotropic medication regimen.] Monitor for medication compliance and for any psychotropic medication side effects. Will continue to monitor ongoing response to treatment. Encouraged participation in milieu.
[2023-04-07] MEDS: PALIPERIDONE 3 MG TAB.ER.24 PO SCH (20:15)
[2023-04-07] MEDS: SERTRALINE 50 MG TAB PO SCH (20:15)
[2023-04-08 07:20] VITALS: RESP 16
[2023-04-08] MEDS: PANTOPRAZOLE 40 MG TABLET PO SCH (08:19)
--- NOTE | 2023-04-08 09:50 | P.PN ---
Progress Note - Text Interval history: Patient was seen [wandering the hallways] and was directable and agreeable to speak with chart writer. States that although he still hears voices, they are not bothering. At this time patient denies any suicidal or homicidal ideations intent or plan. Denies any visual hallucinations. Patient denies any side effects from the medications and has been compliant with meds. Mental status exam: General Appearance: [Patient appears to be older than stated age is alert, directable, and cooperative.] Malodorous. Poor hygiene and grooming Behavior: [No agitated behavior. Patient is calm and directable] Speech: Patient's speech is fluent and nonpressured. Mood/Affect: Mood is improving mildly, affect is congruent and constricted. Suicidality/Homicidality: Patient denies having any suicidal or homicidal ideation intent or plan. Perceptions: Reports auditory hallucinations. Responding to internal stimuli. Though content/process: [There is no evidence of any delusional thought content and thought process is linear and goal-directed.] Memory and concentration: AOX3, grossly intact for the purposes of this session Judgment and insight: Poor Assessment/Plan: Continue with current diagnosis. Patient continues to meet criteria for inpatient psychiatric admission for symptom stabilization and safety. Increase intake to 6 mg daily at bedtime. Continue all other medications Monitor for medication compliance and for any psychotropic medication side effects. Will continue to monitor ongoing response to treatment. Encouraged participation in milieu.
[2023-04-08] MEDS: SERTRALINE 50 MG TAB PO SCH (21:09)
[2023-04-08] MEDS: PALIPERIDONE 6 MG TAB.ER.24 PO SCH (21:09)
[2023-04-09] MEDS: PANTOPRAZOLE 40 MG TABLET PO SCH (08:06)
[2023-04-09] MEDS ORDERED: PALIPERIDONE IM 234 MG/1.5 ML SYG IM STA (11:03)
--- NOTE | 2023-04-09 11:07 | P.PN ---
Progress Note - Text Progress Note Date: 04/09/23 Interval history: Patient was seen today laying in bed and agreeable to speak to com writer. Patient appeared to be not responding to internal stimuli today. He was not tearful as well. He states that he is doing "a bit better". He continues to have poverty of content, some slight thought blocking. He did answer some questions, for the most part was fairly appropriate. Continues to have fairly limited insight and judgment. We spoke about transitioning onto a long-acting injection to help compliance. Patient still has not met with his traffic law attorney, Taiwo com writer spoke more about the involuntary process. He states that he is sleeping okay at nighttime, denies any problems with appetite. Denies any suicidal homicidal ideations intent or plan. Patient claims that the auditory hallucinations have been improving, denies any visual hallucinations. Denies any side effects. MENTAL STATUS EXAM: General Appearance: Patient appears to be thin, poor dentition, long hair, stated age is alert, more cooperative today. Patient appears to have improving mildly hygiene and grooming. Behavior: Patient is laying in bed, tearful. not Internally preoccupied Speech: Patient's speech is fluent and nonpressured. [place], hesitant, improving mildly Mood/Affect: Patient reports their mood is "a bit better", affect is congruent Suicidality/Homicidality: Patient denies having any homicidal ideation intent or plan. Denies any suicidal ideations intent or plan Perceptions: Patient denies any visual hallucinations claims that he is hearing voices. Though content/process: Poverty of content, concrete, improving Memory and concentration: AOX2, grossly intact for the purposes of this session Judgment and insight: Chronically limited/poor, improving mildly IMPRESSIONS: Schizophrenia Noncompliance with medications PLAN: -Patient is admitted under involuntary status to [facility]HU for stabilization of psychiatric symptoms and safety. Patient has not signed adult voluntary form and medication consent and is placed in patient's chart. A second certification was completed and along with petition will be filed for court. -Medications : Invega p.o. 6 mg nightly for psychosis, will give 234 mg IM Invega Sustenna today to help ensure compliance, next dose will be given on prior to discharge, Zoloft 50 mg nightly for mood/anxiety, melatonin nightly as needed for sleep. -Ativan and Haldol PRN for agitation/aggression -NRT -not needed as patient does not smoke -SW on board for discharge planning. Encourage patient to participate in groups to work on coping skills. Will await deferral and court date.possible discharge vs sunday once patient is transitioned onto [facility].
[2023-04-09] MEDS: SERTRALINE 50 MG TAB PO SCH (20:30)
[2023-04-09] MEDS: PALIPERIDONE 6 MG TAB.ER.24 PO SCH (20:30)
[2023-04-10 06:52] VITALS: TEMP 97.5
[2023-04-10] MEDS: PANTOPRAZOLE 40 MG TABLET PO SCH (08:54)
--- NOTE | 2023-04-10 12:09 | P.PN ---
Progress Note - Text Progress Note Date: 04/10/23 Interval history: Patient was seen today laying in bed and agreeable to speak to junior technical writer. Patient appeared to be not responding to internal stimuli today. Patient not attending many groups. He states that he is doing "a bit better". He continues to have poverty of content, some slight thought blocking. He did answer some questions, for the most part was fairly appropriate. Continues to have fairly limited insight and judgment. We spoke about transitioning onto a long-acting injection to help compliance. Pt meeting with business attorney for deferral today. He states that he is sleeping okay at nighttime, denies any problems with appetite. Denies any suicidal homicidal ideations intent or plan. Patient claims that the auditory hallucinations have been less distressing and are not command type, denies any visual hallucinations. Denies any side effects. Pt received long acting injection yesterday, tolerated well. MENTAL STATUS EXAM: General Appearance: Patient appears to be thin, poor dentition, long hair, stated age is alert, more cooperative today. Patient appears to have improving mildly hygiene and grooming. Behavior: Patient is laying in bed. not Internally preoccupied, more cooperative today. Speech: Patient's speech is fluent and nonpressured. [place], hesitant, impr oving mildly Mood/Affect: Patient reports their mood is "good", affect is congruent Suicidality/Homicidality: Patient denies having any homicidal ideation intent or plan. Denies any suicidal ideations intent or plan Perceptions: Patient denies any visual hallucinations claims that he is hearing voices. Mildly improving. Though content/process: Poverty of content, concrete, improving Memory and concentration: AOX2, grossly intact for the purposes of this session Judgment and insight: Chronically limited/poor, improving mildly IMPRESSIONS: Schizophrenia Noncompliance with medications PLAN: -Patient is admitted under involuntary status to MHU for stabilization of psychiatric symptoms and safety. Patient has not signed adult voluntary form and medication consent and is placed in patient's chart. A second certification was completed and along with petition will be filed for court. -Medications : Invega decreased to p.o. 3 mg nightly for psychosis, received 234 mg IM Invega Sustenna 04/09 to help ensure compliance, next dose od 156 mg IM will be given on Sunday prior to discharge, Zoloft 50 mg nightly for mood/anxiety, melatonin nightly as needed for sleep. -Ativan and Haldol PRN for agitation/aggression -NRT -not needed as patient does not smoke -SW on board for discharge planning. Encourage patient to participate in groups to work on coping skills. Will await deferral and court date.possible discharge sunday once patient is transitioned onto [facility].
[2023-04-10] MEDS: SERTRALINE 50 MG TAB PO SCH (21:09)
[2023-04-10] MEDS: PALIPERIDONE 3 MG TAB.ER.24 PO SCH (21:09)
[2023-04-11] MEDS: PANTOPRAZOLE 40 MG TABLET PO SCH (08:51)
--- NOTE | 2023-04-11 12:07 | P.PN ---
Progress Note - Text Progress Note Date: 04/11/23 Interval history: Patient was seen today up in hallway and agreeable to speak to short story writer. Patient appeared to not be responding to internal stimuli today. Patient not attending many groups. He states that he is doing "ok". He continues to have poverty of content, some slight thought blocking. He did answer some questions, for the most part was fairly appropriate. Continues to have fairly limited insight and judgment. He states that he is sleeping okay at nighttime, denies any problems with appetite. Denies any suicidal homicidal ideations intent or plan. Patient claims that the auditory hallucinations have been both "bad and good". denies any visual hallucinations. Denies any side effects. MENTAL STATUS EXAM: General Appearance: Patient appears to be thin, poor dentition, long hair, stated age is alert, cooperative today. Patient appears to have improving mildly hygiene and grooming. Behavior: Pt is cooperative today. Speech: Patient's speech is nonpressured. [place], hesitant, improving mildly Mood/Affect: Patient reports their mood is "ok", affect is congruent Suicidality/Homicidality: Patient denies having any homicidal ideation intent or plan. Denies any suicidal ideations intent or plan Perceptions: Patient denies any visual hallucinations claims that he is hearing voices. Mildly improving. Though content/process: Poverty of content, concrete, improving mildly Memory and concentration: AOX2, grossly intact for the purposes of this session Judgment and insight: Chronically limited/poor, improving mildly IMPRESSIONS: Schizophrenia Noncompliance with medications PLAN: -Patient is admitted under involuntary status to [facility] for stabilization of psychiatric symptoms and safety. Patient has not signed adult voluntary form and medication consent and is placed in patient's chart. -Medications : Invega p.o. 3 mg nightly for psychosis, received 234 mg IM Invega Sustenna 04/09 to help ensure compliance, next dose due 156 mg IM will be given on Sunday prior to discharge, increase Zoloft 75 mg nightly for mood/anxiety, melatonin nightly as needed for sleep. -Ativan and Haldol PRN for agitation/aggression -NRT -not needed as patient does not smoke -SW on board for discharge planning. Encourage patient to participate in groups to work on coping skills. signed deferral with attorney lawyer on 04/10. Possible discharge sunday once patient is transitioned onto [facility].
[2023-04-11 15:19] VITALS: BMI 18.5
[2023-04-11] MEDS: PALIPERIDONE 3 MG TAB.ER.24 PO SCH (20:13)
[2023-04-11] MEDS ORDERED: SERTRALINE 50 MG TAB PO SCH (21:00)
[2023-04-12 07:11] VITALS: BP 102/63; PULSE 74
[2023-04-12] MEDS: PANTOPRAZOLE 40 MG TABLET PO SCH (08:40)
--- NOTE | 2023-04-12 13:34 | P.PN ---
Progress Note - Text Progress Note Date: 04/12/23 Interval history: Patient was seen today up in hallway and agreeable to speak to typewriter assembly and parts inspector. Patient appeared to not be responding to internal stimuli today, he appeared to be smiling today and agreed to speak with typewriter assembly and parts inspector in the office. Patient has been going to all the groups he claims. States that he has been eating fairly. Mainly keeping to himself on the unit, has been following direction. He states that he is doing a bit better today, denies any anxiety or depression. States that the voices have also been improving in intensity. We spoke about transitioning onto the long-acting injection he will receive his second dose tomorrow morning, he is excited to go home tomorrow. He states that he is sleeping okay at nighttime, denies any problems with appetite. Denies any suicidal homicidal ideations intent or plan. denies any visual hallucinations. Denies any side effects. MENTAL STATUS EXAM: General Appearance: Patient appears to be thin, poor dentition, long hair, stated age is alert, more cooperative today. Patient appears to have improving mildly hygiene and grooming. Behavior: Pt is cooperative today. Smiling Speech: Patient's speech is nonpressured. [place], hesitant, improving mildly Mood/Affect: Patient reports their mood is "good", affect is congruent and imp roving Suicidality/Homicidality: Patient denies having any homicidal ideation intent or plan. Denies any suicidal ideations intent or plan Perceptions: Patient denies any visual hallucinations claims that he is hearing voices. Mildly improving. Though content/process: Poverty of content, concrete, improving mildly Memory and concentration: AOX2, grossly intact for the purposes of this session Judgment and insight: Chronically limited, improving mildly IMPRESSIONS: Schizophrenia Noncompliance with medications PLAN: -Patient is admitted under involuntary status to [facility] for stabilization of psychiatric symptoms and safety. Patient has not signed adult voluntary form and medication consent and is placed in patient's chart. -Medications : tapered off Invega p.o., pt received 234 mg IM Invega Sustenna 04/09 to help ensure compliance, next dose due 156 mg IM will be given on Sunday prior to discharge, monthly maintenance dose will be due on 05/04. increase Zoloft 100 mg nightly for mood/anxiety, melatonin nightly as needed for sleep. -Ativan and Haldol PRN for agitation/aggression -NRT -not needed as patient does not smoke -SW on board for discharge planning. Encourage patient to participate in groups to work on coping skills. signed deferral with deputy county attorney on 04/10. Possible discharge sunday once patient is transitioned onto [facility].
[2023-04-12] MEDS ORDERED: SERTRALINE 100 MG TAB PO SCH (21:00)
[2023-04-13] MEDS ORDERED: PALIPERIDONE IM 156 MG/ML SYG IM ONE (08:00)
[2023-04-13] MEDS: PANTOPRAZOLE 40 MG TABLET PO SCH (10:11)
--- NOTE | 2023-04-13 10:15 | P.DS ---
Providers Date of admission: 04/05/23 20:02 Expected date of discharge: 04/13/23 Attending physician: Lester Martino MD Consults: 04/05/23 20:06 Consult Physician Routine Consulting Provider: Mally Physician Consult Reason/Comments: H&P Do you want consulting provider notified?: Yes Primary care physician: Kofi Sun - Discharge Diagnosis(es) (1) Schizophrenia Current Visit: Yes Status: Acute Priority: High (2) Noncompliance Current Visit: Yes Status: Acute Priority: Medium (3) Intellectual disability Current Visit: Yes Status: Acute Priority: Medium Hospital Course: Admission HPI: Admission note was completed by speech writer "patient is a 37-year-old male, currently lives alone in an apartment, has no kids, collect Social Security. Patient presented to the hospital on 04/05 brought in by police for psychiatric evaluation. Patient was petitioned and stated that patient was talking about hearing voices from angels, has been walking around in the rain with no jacket, patient apparently has not been taking his medications at home. He was also claiming that he believes that there is a devil in his apartment. Patient was seen today laying in bed and agreeable to speak to speech writer briefly. He was a poor historian. He was fairly concrete, hesitant and tearful when speech writer attempted to speak with him. He had significant thought blocking during the interview. He was responding to internal stimuli as well. He was fairly illogical. He did not know today's date however does know his name and age. He spoke about "the Bible" however was not able to communicate his feelings. He appeared to be in mild distress. States that he is hearing voices and states that "it is mostly mean". Denies any visual hallucinations. Patient denies any suicidal or homicidal ideations intent or plan. At this time patient denies any visual hallucinations. Patient denies any flight of ideas racing thoughts and increased in goal directed behavior. Patient admits to using no recreational drugs or cigarettes." Hospital course: Upon admission to the unit patient was admitted involuntarily on a petition and certificate and a second certificate was completed and faxed with the courts. Patient ended up signing a deferral with the city attorney and agreeing to treatment. Patient got along well with other patients on the unit and followed unit protocol. Patient was compliant with the medications and denied any side effects throughout hospital course. Patient was started on Invega p.o up to a total of 6 mg daily, patient was transitioned onto Invega Sustenna given 234 mg IM on 04/09, second dose of 156 mg IM was given on 04/13, next monthly maintenance dose will be due on 05/10 117 mg IM. Patient was also started on Zoloft and increase the dose of 100 mg nightly for mood/anxiety, melatonin nightly as needed for sleep. Patient spoke of his stressors and engaged in therapy with groups. Patient was also seen by medical team for history and physical exam. Throughout the course of the hospitalization patient gradually improved with regards to mood, anxiety, psychosis, hallucinations, sleep and returned back to their baseline level of functioning. On the day of discharge patient denied any suicidal or homicidal ideations intent or plan denied any visual hallucinations, stated that his chronic AH have improved signifcantly and are now non distressing and less frequent. Patient endorsed wanting to live for future and health. The patient denied any access to guns or weapons. Patient denied any paranoia and did not endorse any delusions. Patient does not have a significant history of substance abuse and was counseled on abstaining from all substances including alcohol and marijuana. Patient was also counseled on the medications and need for regular compliance and was encouraged to follow-up with their outpatient appointment for mental health and also for primary care. Prior to discharge a family meeting will be arranged by rn social work to answer any questions and ensure safety upon discharge incuding making sure that guns/weapo ns are either removed from the home or locked away. Patient will be picked up by his mother today. Patient will be following up at [facility] regularly. Mental status exam: General Appearance: Patient appears to be thin, longer hair, poor dentition, stated age is alert, pleasant, and cooperative. Patient is in no acute distress and has improved hygiene and grooming Behavior: Patient is calmly seated without any agitated behavior. Speech: Patient's speech is fluent and nonpressured. Mood/Affect: Patient reports their mood is "good", affect is congruent and euthymic. Suicidality/Homicidality: Patient denies having any suicidal or homicidal ideation intent or plan. Perceptions: Patient denies any auditory or visual hallucinations. Though content/process: There is no evidence of any delusional thought content and thought process is linear. [place] Memory and concentration: AOX3, grossly intact for the purposes of this session. Judgment and insight: Chronically limited, improved with guarded prognosis Impression: Schizophrenia noncompliance with medication Intellectual disability Plan: -Continue with discharge today as patient has improved and stabilized psychiatrically and is not currently an imminent threat to themself and/or others. Patient will remain at chronically elevated risk for harm to self and/or others due to their chronic menatl illness and intellectual disability. -Continue medications: Invega p.o. was discontinued. Patient received Invega Sustenna 234 mg IM on 04/09, second dose of 156 mg IM was given on 04/13, monthly maintenance dose of 117 mg IM will be due on 05/10. Zoloft 100 mg nightly for mood/anxiety, melatonin nightly as needed for sleep -Patient was counseled on the need for medication compliance and appropriate follow-up at mental health and also primary care for medical issues. Patient verbalized understanding and agreed. -Social work to arrange for and conduct family meeting to ensure safety upon discharge and answer any questions/concerns and also to ensure safe home environment that guns/weapons are either removed from the home or locked away. Social work also to arrange for patients follow up appointments with [facility] for psychiatric care along with follow up with primary care provider. -Patient counseled on abstaining from recreational drugs and marijuana and alcohol. Was informed/educated on the adverse effects on their physical and mental health. Patient verbally agreed and understood. -Patient was instructed to return to the hospital or seek immediate medical care if their psychiatric or medical symptoms do worsen or reoccur. Allergies Allergy/AdvReac Type Severity Reaction Status Date / Time adhesive AdvReac Itching Verified 04/05/23 21:42 Laboratory Results WBC 11.8 k/uL (3.8-10.6) H 04/06/23 07:56 RBC 5.24 m/uL (4.30-5.90) 04/06/23 07:56 Hgb 13.1 gm/dL (13.0-17.5) 04/06/23 07:56 Hct 41.3 % (39.0-53.0) 04/06/23 07:56 MCV 78.8 fL (80.0-100.0) L 04/06/23 07:56 MCH 25.1 pg (25.0-35.0) 04/06/23 07:56 MCHC 31.9 g/dL (31.0-37.0) 04/06/23 07:56 RDW 13.9 % (11.5-15.5) 04/06/23 07:56 Plt Count 316 k/uL (150-450) 04/06/23 07:56 MPV 7.1 04/06/23 07:56 Neutrophils % 81 % 04/06/23 07:56 Lymphocytes % 13 % 04/06/23 07:56 Monocytes % 4 % 04/06/23 07:56 Eosinophils % 1 % 04/06/23 07:56 Basophils % 0 % 04/06/23 07:56 Neutrophils # 9.5 k/uL (1.3-7.7) H 04/06/23 07:56 Lymphocytes # 1.5 k/uL (1.0-4.8) 04/06/23 07:56 Monocytes # 0.5 k/uL (0-1.0) 04/06/23 07:56 Eosinophils # 0.2 k/uL (0-0.7) 04/06/23 07:56 Basophils # 0.0 k/uL (0-0.2) 04/06/23 07:56 Hypochromasia Slight 04/06/23 07:56 Sodium 141 mmol/L (137-145) 04/06/23 07:56 Potassium 4.3 mmol/L (3.5-5.1) 04/06/23 07:56 Chloride 103 mmol/L (98-107) 04/06/23 07:56 Carbon Dioxide 25 mmol/L (22-30) 04/06/23 07:56 Anion Gap 13 mmol/L 04/06/23 07:56 BUN 21 mg/dL (9-20) H 04/06/23 07:56 Creatinine 0.97 mg/dL (0.66-1.25) 04/06/23 07:56 Est GFR (CKD-EPI)AfAm >90 (>60 ml/min/1.73 sqM) 04/06/23 07:56 Est GFR (CKD-EPI)NonAf >90 (>60 ml/min/1.73 sqM) 04/06/23 07:56 Glucose 85 mg/dL (74-99) 04/06/23 07:[address] Glu mg/dL 108 mg/dL 04/06/23 07:56 Hemoglobin A1c 5.4 % (<=6.0) 04/06/23 07:56 Calcium 9.5 mg/dL (8.4-10.2) 04/06/23 07:56 Total Bilirubin 1.0 mg/dL (0.2-1.3) 04/06/23 07:56 AST 20 U/L (17-59) 04/06/23 07:56 ALT 10 U/L (4-49) 04/06/23 07:56 Alkaline Phosphatase 74 U/L (38-126) 04/06/23 07:56 Total Protein 8.1 g/dL (6.3-8.2) 04/06/23 07:56 Albumin 4.3 g/dL (3.5-5.0) 04/06/23 07:56 TSH 1.970 mIU/L (0.465-4.680) 04/06/23 07:56 Urine Opiates Screen Not Detected (NotDetected) 04/05/23 14:42 Ur Oxycodone Screen Not Detected (NotDetected) 04/05/23 14:42 Urine Methadone Screen Not Detected (NotDetected) 04/05/23 14:42 Ur Barbiturates Screen Not Detected (NotDetected) 04/05/23 14:42 U Tricyclic Antidepress Not Detected (NotDetected) 04/05/23 14:42 Ur Phencyclidine Scrn Not Detected (NotDetected) 04/05/23 14:42 Ur Amphetamines Screen Not Detected (NotDetected) 04/05/23 14:42 U Methamphetamines Scrn Not Detected (NotDetected) 04/05/23 14:42 U Benzodiazepines Scrn Not Detected (NotDetected) 04/05/23 14:42 Urine Cocaine Screen Not Detected (NotDetected) 04/05/23 14:42 U Marijuana (THC) Screen Not Detected (NotDetected) 04/05/23 14:42 Influenza Type A (PCR) Not Detected (Not Detectd) 04/05/23 16:36 Influenza Type B (PCR) Not Detected (Not Detectd) 04/05/23 16:36 RSV (PCR) Not Detected (Not Detectd) 04/05/23 16:36 SARS-CoV-2 (PCR) Not Detected (Not Detectd) 04/05/23 16:36 Vital Signs Temp 97.5 F L 04/10/23 06:30 Pulse 74 04/12/23 06:47 Resp 16 04/10/23 08:57 BP 102/63 04/12/23 06:47 Pulse Ox 100 04/10/23 08:57 FiO2 Intake & Output 04/12/23 04/13/23 04/13/23 18:59 06:59 18:59 Intake Total 300 Balance 300 Intake: Oral 300 Patient Condition at Discharge: Stable Plan - Discharge Summary Discharge Rx Participant: Yes New Discharge Prescriptions: New Pantoprazole [Protonix] 40 mg PO AC-BRKFST 30 Days #30 tab Sertraline [Zoloft] 100 mg PO HS 30 Days #30 tab Paliperidone Palmitate [Invega Sustenna] 117 mg IM QMONTHLY #1 each Melatonin 5 mg PO HS PRN 30 Days #30 tab PRN Reason: Insomnia Discharge Medication List Melatonin 5 mg PO HS PRN 30 Days #30 tab 04/13/23 [Rx] Paliperidone Palmitate [Invega Sustenna] 117 mg IM QMONTHLY #1 each 04/13/23 [Rx] Pantoprazole [Protonix] 40 mg PO AC-BRKFST 30 Days #30 tab 04/13/23 [Rx] Sertraline [Zoloft] 100 mg PO HS 30 Days #30 tab 04/13/23 [Rx] Follow up Appointment(s)/Referral(s): [facility] [Outside] - 04/13/23 2:00 pm (04/13@ 2pm with Fatoumata Valle 04/24@ 10am with Abi Justice NP 05/28@ 11am with Abi Justice NP) David Wynne Jr, [Doctor of Osteopathic Medicine] - 1-2 days Patient Instructions/Handouts: Schizophrenia (DC), Psychotic Disorder (DC) Activity/Diet/Wound Care/Special Instructions: Avoid the use of street drugs and alcohol. Take all medications as prescribed. When you are in need of refills on your medications, please contact your medical provider and/or outpatient psychiatrist/provider to have this done. Please go to your scheduled outpatient appointment for aftercare treatment. If symptoms return or become worse, call the crisis line at and/or go to the nearest emergency room for evaluation. National Suicide Hotline 988. Discharge Disposition: HOME SELF-CARE
== END 2023-04-13 11:58 | disposition home or self-care (01) | DRG 750 ==
LOC: EC 14:05 → 3MHU 20:02
PROVIDERS: ADMIT Psychiatry & Neurology Psychiatry; ATTEND Psychiatry & Neurology Psychiatry
DX: F20.0 Paranoid schizophrenia (principal); D50.9 Iron deficiency anemia, unspecified; F79 Unspecified intellectual disabilities; R45.851 Suicidal ideations; K21.9 Gastro-esophageal reflux disease without esophagitis; R45.850 Homicidal ideations; Z79.899 Other long term (current) drug therapy; Z91.148 Patient's other noncompliance with medication regimen for other reason; Z91.199 Patient's noncompliance with other medical treatment and regimen due to unspecified reason; Z11.52 Encounter for screening for COVID-19; Z60.2 Problems related to living alone; R45.1 Restlessness and agitation; F41.9 Anxiety disorder, unspecified; F06.31 Mood disorder due to known physiological condition with depressive features; F17.200 Nicotine dependence, unspecified, uncomplicated; Z71.3 Dietary counseling and surveillance; Z28.21 Immunization not carried out because of patient refusal
CPT/HCPCS: 80053; 80306; 83036; 84443; 85025; 87636; 99285

== ENCOUNTER 2023-04-13 14:46 | Inpatient (IN) | payer MEDICAID, OTHER ==
--- NOTE | 2023-04-13 17:14 | ED ---
Psych HPI - General Chief Complaint: Psychiatric Symptoms Stated Complaint: Mental Health Time Seen by Provider: 04/13/23 16:19 Source: patient, RN notes reviewed, old records reviewed Mode of arrival: ambulatory - History of Present Illness Initial Comments: Is a 37-year-old male to ER for evaluation today. Patient presents under petition for evaluation by psychiatric department, patient is acutely psychotic with depression and suicidal thoughts MD Complaint: suicidal ideation, feels depressed -: unknown Associated Psychiatric Symptoms: depression, suicidal ideation History of same: Yes Quality: constant Improves With: none Worsens With: none Associated Symptoms: denies other symptoms Treatments Prior to Arrival: placed on mental health hold If Self Harm: admits thoughts of self harm - Related Data Previous Rx's Medication Instructions Recorded Melatonin 5 mg PO HS PRN 30 Days #30 tab 04/13/23 Paliperidone Palmitate [Invega 117 mg IM QMONTHLY #1 each 04/13/23 Sustenna] Pantoprazole [Protonix] 40 mg PO AC-BRKFST 30 Days #30 tab 04/13/23 Sertraline [Zoloft] 100 mg PO HS 30 Days #30 tab 04/13/23 Allergies Allergy/AdvReac Type Severity Reaction Status Date / Time adhesive AdvReac Itching Verified 04/13/23 23:26 Review of Systems ROS Statement: Those systems with pertinent positive or pertinent negative responses have been documented in the HPI. ROS Other: All systems not noted in ROS Statement are negative. Past Medical History Past Medical History: GERD/Reflux Additional Past Medical History / Comment(s): anemia, growth delay History of Any Multi-Drug Resistant Organisms: None Reported Past Surgical History: No Surgical Hx Reported Past Anesthesia/Blood Transfusion Reactions: No Reported Reaction Past Psychological History: Anxiety, Depression, Schizophrenia Smoking Status: Current every day smoker Past Alcohol Use History: None Reported Past Drug Use History: None Reported - Past Family History Father Additional Family Medical History / Comment(s): Stomach surgery of unknown reason. General Exam Limitations: no limitations General appearance: alert, in no apparent distress Head exam: Present: atraumatic, normocephalic, normal inspection Eye exam: Present: normal appearance, PERRL, EOMI. Absent: scleral icterus, conjunctival injection, periorbital swelling ENT exam: Present: normal exam, mucous membranes moist Neck exam: Present: normal inspection. Absent: tenderness, meningismus, lymphadenopathy Respiratory exam: Present: normal lung sounds bilaterally. Absent: respiratory distress, wheezes, rales, rhonchi, stridor Cardiovascular Exam: Present: regular rate, normal rhythm, normal heart sounds. Absent: systolic murmur, diastolic murmur, rubs, gallop, clicks GI/Abdominal exam: Present: soft, normal bowel sounds. Absent: distended, tenderness, guarding, rebound, rigid Extremities exam: Present: normal inspection, full ROM, normal capillary refill. Absent: tenderness, pedal edema, joint swelling, calf tenderness Back exam: Present: normal inspection Neurological exam: Present: alert, oriented X3, CN II-XII intact Psychiatric exam: Present: normal affect, normal mood Skin exam: Present: warm, dry, intact, normal color. Absent: rash Course Vital Signs 04/13/23 15:01 Temperature 98.0 F Pulse Rate 74 Respiratory 18 Rate Blood Pressure 98/67 O2 Sat by Pulse 100 Oximetry - Reevaluation(s) Reevaluation #1: Medical records reviewed Reevaluation #2: Medical cleared for psychiatric evaluation Medical Decision Making - Medical Decision Making 37 male will be admitted for psychiatric evaluation and treatment - Lab Data Lab Results 04/13/23 04/13/23 Range/Units 19:50 20:02 Urine Opiates Screen Negative (Negative) Urine Methadone Screen Negative (Negative) Ur Propoxyphene Screen Negative (Negative) Urine Barbiturates Negative (Negative) Ur Phencyclidine Scrn Negative (Negative) Ur Amphetamine Screen Negative (Negative) U Benzodiazepines Scrn Negative (Negative) Urine Cocaine Screen Negative (Negative) U Cannabinoids Screen Negative (Negative) Urine Alcohol Negative (Negative) Influenza Type A (PCR) Not Detected (Not Detectd) Influenza Type B (PCR) Not Detected (Not Detectd) RSV (PCR) Not Detected (Not Detectd) SARS-CoV-2 (PCR) Not Detected (Not Detectd) Disposition Clinical Impression: Chronic schizophrenia, Intellectual disability, Schizophrenia, paranoid type, Acute psychosis Disposition: TRANSFER TO PSYCH HOSP/UNIT Condition: Fair Is patient prescribed a controlled substance at d/c from ED?: No
[2023-04-13] MEDS ORDERED: haloperidoL 5 MG TAB PO PRN (23:00)
[2023-04-13] MEDS ORDERED: MAGNESIUM HYDROXIDE 2,400 MG/30 ML CUP PO PRN (23:00)
[2023-04-13] MEDS ORDERED: HALOPERIDOL LACTATE 5 MG/ML 1 ML VIAL IM PRN (23:00)
[2023-04-13] MEDS ORDERED: LORazepam 2 MG/ML INJ IM PRN (23:00)
[2023-04-13] MEDS ORDERED: MAG HYDROX/AL HYDROX/SIMETH 30 ML CUP PO PRN (23:00)
[2023-04-14] MEDS: SERTRALINE 100 MG TAB PO SCH (00:14)
[2023-04-14 04:50] LABS: Urine Alcohol Negative (Negative); Urine Barbiturate Negative (Negative); Urine Cocaine Negative (Negative); Urine Methadone Negative (Negative); Urine Opiates Negative (Negative); Urine Phencyclidine Negative (Negative)
[2023-04-14] MEDS: PANTOPRAZOLE 40 MG TABLET PO SCH (08:23)
--- NOTE | 2023-04-14 10:58 | P.HP ---
Psychiatric H&P - . H&P Date: 04/14/23 History & Physical: Allergies Allergy/AdvReac Type Severity Reaction Status Date / Time adhesive AdvReac Itching Verified 04/13/23 23:26 Vital Signs Temp 98.0 F 04/14/23 00:02 Pulse 70 04/14/23 00:02 Resp 18 04/14/23 00:02 BP 120/68 04/14/23 00:02 Pulse Ox 98 04/14/23 00:02 FiO2 Intake & Output 04/13/23 04/14/23 04/14/23 18:59 06:59 18:59 Weight 49.895 kg 47.202 kg Laboratory Last Values Urine Opiates Screen Negative (Negative) 04/13/23 19:50 Urine Methadone Screen Negative (Negative) 04/13/23 19:50 Ur Propoxyphene Screen Negative (Negative) 04/13/23 19:50 Urine Barbiturates Negative (Negative) 04/13/23 19:50 Ur Phencyclidine Scrn Negative (Negative) 04/13/23 19:50 Ur Amphetamine Screen Negative (Negative) 04/13/23 19:50 U Benzodiazepines Scrn Negative (Negative) 04/13/23 19:50 Urine Cocaine Screen Negative (Negative) 04/13/23 19:50 U Cannabinoids Screen Negative (Negative) 04/13/23 19:50 Urine Alcohol Negative (Negative) 04/13/23 19:50 Influenza Type A (PCR) Not Detected (Not Detectd) 04/13/23 20:02 Influenza Type B (PCR) Not Detected (Not Detectd) 04/13/23 20:02 RSV (PCR) Not Detected (Not Detectd) 04/13/23 20:02 SARS-CoV-2 (PCR) Not Detected (Not Detectd) 04/13/23 20:02 04/14/23 10:50 IDENTIFYING DATA: Patient is a 37-year-old male, currently lives alone in an apartment, has no kids, collect Social Security HPI: Patient presented to the hospital yesterday several hours after being discharged from the mental health unit. Patient has a history of schizophrenia and intellectual disability. Patient was picked up by his mother on day of discharge yesterday taken to his home and apparently was acting paranoid, bizarre and refusing to go into his home. Apparently the patient was making statements of the devil being in his house and him hearing voices and believes that it was "tainted". Patient was brought back to the hospital by his mother/guardian. Patient was seen today for psychiatric assessment. He was laying in bed, staring at the ceiling. He did not appear to be responding to internal stimuli. Patient continues to be fairly hesitant and concrete in his speech and thought process. He explained that "the apartment was given to someone else" and was somewhat illogical. He did claim that he was hearing voices however "not right now". He continued to talk about angels and also demons. He is not reporting any problems with his medications at this time. States that he slept fairly last night. Patient appears to be fairly calm and follows directions. He had stated that denies any visual hallucinations. Patient denies any suicidal or homicidal ideations intent or plan. Patient denies any flight of ideas racing thoughts and increased in goal directed behavior. Patient admits to using no recreational drugs or cigarettes. PAST PSYCHIATRIC HISTORY: Patient states that he has a history of intellectual disability and schizophrenia. Patient has a history of taking Invega Sustenna, Zoloft, Seroquel, Prozac, Zyprexa. Patient was last psychiatrically hospitalized on mental health unit and was last discharged on 04/13/2023. Patient currently follows up with the nurse practitioner at [facility] last was seen early March. Patient denies any history of suicide attempts in the past. Past Medical History: GERD/Reflux Additional Past Medical History / Comment(s): anemia, growth delay History of Any Multi-Drug Resistant Organisms: None Reported Past Surgical History: No Surgical Hx Reported Past Anesthesia/Blood Transfusion Reactions: No Reported Reaction Past Psychological History: Anxiety, Depression, Schizophrenia Smoking Status: Current every day smoker Past Alcohol Use History: None Reported Past Drug Use History: None Reported ALLERGIES: as per EMR CHEMICAL DEPENDENCY HISTORY: as per HPI FAMILY PSYCHIATRIC/SUBSTANCE USE HISTORY: Denies SOCIAL HISTORY: Patient was born and raised in [place] and then moved to [place]. He denies any legal history. He has no kids, he collect Social Security. He lives alone in an apartment. MENTAL STATUS EXAM: General Appearance: Patient appears to be thin, poor dentition, long hair, stated age is alert, not responding to internal stimuli. Patient appears to have fair hygiene and grooming. Behavior: Patient is laying in bed, not tearful today. Smiling Speech: Patient's speech is fluent and nonpressured. [place], hesitant Mood/Affect: Patient reports their mood is "okay", affect is congruent Suicidality/Homicidality: Patient denies having any homicidal ideation intent or plan. Denies any suicidal ideations intent or plan Perceptions: Patient denies any visual hallucinations claims that he is hearing voices. Though content/process: Delusional, concrete, poverty of content Memory and concentration: AOX2, grossly intact for the purposes of this session. Cannot spell "WORLD" backwards Judgment and insight: Chronically limited/poor STRENGTHS/WEAKNESSES: strength is that patient is resilient. Weakness is that patient has poor judgment and is impulsive INTELLECT: Average IMPRESSIONS: Schizophrenia Intellectual disability Noncompliance with medications PLAN: -Patient is admitted under involuntary status to MHU for stabilization of psychiatric symptoms and safety. Patient is currently on a deferral. -Medications : Patient received Invega Sustenna 234 mg IM on 04/09, second dose of 156 mg IM was given on 04/13, monthly maintenance dose of 117 mg IM will be due on 05/10. Depending on how patient is doing will re-evaluate need for changing antipsychotic to FGA. Zoloft 100 mg nightly for mood/anxiety, melatonin nightly as needed for sleep -Ativan and Haldol PRN for agitation/aggression -Patient was informed of the risks, benefits and side effects of the medication -Internal Medicine consult to perform medical evaluation and physical. -NRT -not needed as patient does not smoke -SW on board for discharge planning. Encourage patient to participate in groups to work on coping skills. he is currently on a deferral. 04/14/23 10:51 04/14/23 10:53
[2023-04-14] MEDS ORDERED: SERTRALINE 100 MG TAB PO SCH (21:00)
--- NOTE | 2023-04-15 11:29 | P.PN ---
Progress Note - Text Progress Note Date: 04/15/23 Interval history: Patient was seen today for psychiatric follow-up in his room. He sat up on his bed. He appeared to have improvement in his affect today. States that he had difficulty sleeping last night. Continues to state that he hears voices, is not quite sure what they are saying to him. He was not responding to internal stimuli. Claims that he is eating fairly, mainly keeping himself on the unit. Denying any medication side effects. At this time he is denying any visual hallucinations. Denying any suicidal or homicidal ideations intent or plan. MENTAL STATUS EXAM: General Appearance: Patient appears to be thin, poor dentition, long hair, stated age is alert, not responding to internal stimuli. Patient appears to have fair hygiene and grooming. Behavior: Patient is laying in bed, not tearful today. Smiling Speech: Patient's speech is fluent and nonpressured. Street, hesitant Mood/Affect: Patient reports their mood is "ok", affect is congruent and improving Suicidality/Homicidality: Patient denies having any homicidal ideation intent or plan. Denies any suicidal ideations intent or plan Perceptions: Patient denies any visual hallucinations claims that he is hearing voices. Though content/process: Delusional, concrete, poverty of content Memory and concentration: AOX2, grossly intact for the purposes of this session Judgment and insight: Chronically limited/poor, improving mildly IMPRESSIONS: Schizophrenia Intellectual disability Noncompliance with medications PLAN: -Patient is admitted under involuntary status to MHU for stabilization of psychiatric symptoms and safety. Patient is currently on a deferral. -Medications : Patient received Invega Sustenna 234 mg IM on 04/09, second dose of 156 mg IM was given on 04/13, monthly maintenance dose of 117 mg IM will be due on 05/10. Depending on how patient is doing will re-evaluate need for changing antipsychotic to FGA. Zoloft 100 mg nightly for mood/anxiety, will add seroquel 25 mg qhs for adjunct psychosis/sleep. -Ativan and Haldol PRN for agitation/aggression -NRT -not needed as patient does not smoke -SW on board for discharge planning. Encourage patient to participate in groups to work on coping skills. he is currently on a deferral. patient will likely need placement in jail upon discharge, will discuss with [facility] possibillty of this.
--- NOTE | 2023-04-15 12:13 | P.HPIM ---
History of Present Illness H&P Date: 04/15/23 Chief Complaint: History of schizophrenia and intellectual disability Several hours after being discharged in the mental health unit at [facility] patient presented back for readmission secondary to paranoia refusing to go to his home patient was acting paranoid bizarre making statements of hearing voices and that the Devil was in his house that the house was tainted. Patient was brought back to the hospital emergency room by his mother/guardian and appears that this individual feels unsafe by himself at this time. He denies suicidal or homicidal ideations or intent or plan. Patient states that he hasn't smoked cigarettes for approximately the last month, primarily because he is been inpatient for the better part of the last month, patient does not use illicit drugs Review of Systems Constitutional: Reports as per HPI (Missing teeth) Ears, nose, mouth and throat: Reports as per HPI Cardiovascular: Reports as per HPI Respiratory: Reports as per HPI Gastrointestinal: Reports as per HPI Genitourinary: Reports as per HPI Musculoskeletal: Reports as per HPI Integumentary: Reports as per HPI Neurological: Reports as per HPI Psychiatric: Reports as per HPI, Reports anhedonia, Reports anxiety, Reports depression, Reports difficulty concentrating, Reports paranoia (Historical diagnosis of schizophrenia, intellectually challenged) Past Medical History Past Medical History: GERD/Reflux Additional Past Medical History / Comment(s): anemia, growth delay History of Any Multi-Drug Resistant Organisms: None Reported Past Surgical History: No Surgical Hx Reported Past Anesthesia/Blood Transfusion Reactions: No Reported Reaction Past Psychological History: Anxiety, Depression, Schizophrenia Smoking Status: Former smoker Past Alcohol Use History: None Reported Past Drug Use History: None Reported - Past Family History Father Additional Family Medical History / Comment(s): Stomach surgery of unknown reason. Congenital bone disorder, Intellectual disability Medications and Allergies Home Medications Medication Instructions Recorded Confirmed Type Melatonin 5 mg PO HS PRN 30 Days #30 tab 04/13/23 04/13/23 Rx Paliperidone Palmitate [Invega 117 mg IM QMONTHLY #1 each 04/13/23 04/13/23 Rx Sustenna] Pantoprazole [Protonix] 40 mg PO AC-BRKFST 30 Days #30 tab 04/13/23 04/13/23 Rx Sertraline [Zoloft] 100 mg PO HS 30 Days #30 tab 04/13/23 04/13/23 Rx Allergies Allergy/AdvReac Type Severity Reaction Status Date / Time adhesive AdvReac Itching Verified 04/13/23 23:26 Physical Exam Osteopathic Statement: *. No significant issues noted on an osteopathic structural exam other than those noted in the History and Physical/Consult. Vitals: Vital Signs Pulse BP 04/15/23 06:19 97 107/68 General: [Patient awake, alert and oriented times 3. Patient in no acute distress.] HEENT: [PERRL. EOMI. No pharyngeal erythema or exudate., Missing teeth Neck: [No adenopathy.] Cardiac: [Heart regular in rate and rhythm. No S3. No S4. No clicks, rubs. No murmur.] Lungs: [Clear to auscultation bilaterally.] Abdomen: [No mass. No organomegaly. Bowel sounds presnt and normoactive in all 4 quadrants.] Extremes: [No edema no cyanosis no claudication normal pulses] : Normal male genitalia Musculoskeletal: [No joint erythema, edema or tenderness.] Skin: [No rash.] Neurologic: [No lateralizing deficits. CN II - XII grossly intact.] Lymphatic: [No adenopathy.] Thrombosis Risk Factor Assmnt - Choose All That Apply Any of the Below Risk Factors Present?: No Other Risk Factors: No Other congenital or acquired thrombophilia - If yes, enter type in comment: No Thrombosis Risk Factor Assessment Level: Very Low Risk Assessment and Plan (1) Acute psychosis Current Visit: Yes Status: Acute Code(s): F23 - BRIEF PSYCHOTIC DISORDER SNOMED Code(s): 82865386339209 (2) Chronic schizophrenia Current Visit: Yes Status: Acute Code(s): F20.9 - SCHIZOPHRENIA, UNSPECIFIED SNOMED Code(s): 71584931 (3) Intellectual disability Current Visit: Yes Status: Acute Priority: Medium Code(s): F79 - UNSPECIFIED INTELLECTUAL DISABILITIES SNOMED Code(s): 292136967 (4) Schizophrenia, paranoid type Current Visit: Yes Status: Acute Code(s): F20.0 - PARANOID SCHIZOPHRENIA SNOMED Code(s): 98775900 (5) Noncompliance Current Visit: No Status: Acute Priority: Medium Code(s): Z91.199 - PT NONCOMPL WITH OTHER MED TRTMT AND REGIMEN D/T UNSP REASON SNOMED Code(s): 4636091 Plan: Patient is admitted to the mental health unit Was recently discharged and returned secondary to paranoia No new labs were drawn and are performed at this time Will continue to follow closely Thank you Dr. Martino for this most interesting consultation Time with Patient: Greater than 30
[2023-04-15] MEDS: QUEtiapine 25 MG TAB PO SCH (20:12)
--- NOTE | 2023-04-16 10:24 | P.PN ---
Progress Note - Text Progress Note Date: 04/16/23 Interval history: Patient was seen today for psychiatric follow-up in his room. He sat up on his bed, appeared to be smiling and was fairly pleasant with writer technical publications. Continues to be fairly concrete. Claims that he slept a bit better last night. He appeared to have improvement in his affect today. Continues to state that he hears voices, however states that they are improving and they are not distressing him today. He was not responding to internal stimuli. Claims that he is eating fairly, mainly keeping himself on the unit. Denying any medication side effects. At this time he is denying any visual hallucinations. Denying any suicidal or homicidal ideations intent or plan. MENTAL STATUS EXAM: General Appearance: Patient appears to be thin, poor dentition, long hair, stated age is alert, not responding to internal stimuli. Patient appears to have fair hygiene and grooming. Behavior: Patient is laying in bed, not tearful today. Smiling. More pleasant today. Speech: Patient's speech is fluent and nonpressured. [place], hesitant Mood/Affect: Patient reports their mood is "ok", affect is congruent and improving Suicidality/Homicidality: Patient denies having any homicidal ideation intent or plan. Denies any suicidal ideations intent or plan Perceptions: Patient denies any visual hallucinations claims that he is hearing voices, improving Though content/process: Delusional, concrete, poverty of content Memory and concentration: AOX2, grossly intact for the purposes of this session Judgment and insight: Chronically limited/poor, improving mildly IMPRESSIONS: Schizophrenia Intellectual disability Noncompliance with medications PLAN: -Patient is admitted under involuntary status to MHU for stabilization of psychiatric symptoms and safety. Patient is currently on a deferral. -Medications : Patient received Invega Sustenna 234 mg IM on 04/09, second dose of 156 mg IM was given on 04/13, monthly maintenance dose of 117 mg IM will be due on 05/10. Depending on how patient is doing will re-evaluate need for changing antipsychotic to FGA. 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 -Ativan and Haldol PRN for agitation/aggression -NRT -not needed as patient does not smoke -SW on board for discharge planning. Encourage patient to participate in groups to work on coping skills. he is currently on a deferral. patient will likely need placement in shelter upon discharge, will discuss with [facility] possibillty of this.
[2023-04-17] MEDS: ACETAMINOPHEN TAB 325 MG TAB PO PRN (02:15)
--- NOTE | 2023-04-17 09:47 | P.PN ---
Progress Note - Text Progress Note Date: 04/17/23 Interval history: Patient was seen today in his room. He sat up on his bed, appeared to be smil ing and was fairly pleasant with speech writer. States that he slept really well last night. He appeared to have improvement in his affect today. Continues to state that he hears voices, however, he states that they are not telling him to do anything bad. Claims that his appetite is good, and he is mainly isolating to his room. Denying any medication side effects. Spoke with patient about talking with [facility] to get him into a assisted, vs returning to his home. Patient agreeable that it would be better for him. At this time he is denying any visual hallucinations. Denying any suicidal or homicidal ideations intent or plan. MENTAL STATUS EXAM: General Appearance: Patient appears to be thin, poor dentition, long hair, stated age is alert. Patient appears to have fair hygiene and grooming. Behavior: Patient is laying in bed, Smiling. Pleasant. Speech: Patient's speech is fluent and nonpressured. Mood/Affect: Patient reports their mood is "ok", affect is congruent and improving Suicidality/Homicidality: Patient denies having any homicidal ideation intent or plan. Denies any suicidal ideations intent or plan Perceptions: Patient denies any visual hallucinations claims that he is hearing voices, mildly improving Though content/process: concrete, poverty of content Memory and concentration: AOX2, grossly intact for the purposes of this session Judgment and insight: Chronically limited/poor, improving mildly IMPRESSIONS: Schizophrenia Intellectual disability Noncompliance with medications PLAN: -Patient is admitted under involuntary status to MHU for stabilization of psychiatric symptoms and safety. Patient is currently on a deferral. -Medications : Patient received Invega Sustenna 234 mg IM on 04/09, second dose of 156 mg IM was given on 04/13, monthly maintenance dose of 117 mg IM will be due on 05/10. Depending on how patient is doing will re-evaluate need for changing antipsychotic to FGA. 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 -Ativan and Haldol PRN for agitation/aggression -NRT -not needed as patient does not smoke -SW on board for discharge planning. Encourage patient to participate in groups to work on coping skills. he is currently on a deferral. patient will likely need placement in assisted upon discharge, will discuss with the [facility] possibillty of this.
[2023-04-17] MEDS: LORazepam 1 MG TAB PO PRN (20:17)
--- NOTE | 2023-04-18 11:06 | P.PN ---
Progress Note - Text Progress Note Date: 04/18/23 Interval history: Patient was seen today in his room. He sat up on his bed, and was fairly plea ashlee with director underwriter sales. smiling during the conversartion. States that he slept well last night. He appeared to have some improvement in his affect today. Continues to state that he hears voices, however, he states that they are not telling him to do anything bad, only things like "to eat". Claims that his appetite is good, and he is mainly isolating to his room. Patient stated that he is showering. Aliya govea told the patient that he should try attending some groups, and interact with his peers. Patient verbalized understanding, and said he would try. Denying any medication side effects. At this time he is denying any visual hallucinations. Denying any suicidal or homicidal ideations intent or plan. MENTAL STATUS EXAM: General Appearance: Patient appears to be thin, poor dentition, long hair, s tated age is alert. Patient appears to have fair hygiene and grooming. Behavior: Patient is sitting in bed, Smiling. Pleasant. Speech: Patient's speech is fluent and nonpressured. Mood/Affect: Patient reports their mood is "ok", affect is congruent and improving Suicidality/Homicidality: Patient denies having any homicidal ideation intent or plan. Denies any suicidal ideations intent or plan Perceptions: Patient denies any visual hallucinations claims that he is hearing voices, mildly improving Though content/process: concrete, poverty of content mildly improving Memory and concentration: AOX2, grossly intact for the purposes of this session Judgment and insight: Chronically limited/poor, improving mildly IMPRESSIONS: Schizophrenia Intellectual disability Noncompliance with medications PLAN: -Patient is admitted under involuntary status to MHU for stabilization of psychiatric symptoms and safety. Patient is currently on a deferral. -Medications : Patient received Invega Sustenna 234 mg IM on 04/09, second dose of 156 mg IM was given on 04/13, monthly maintenance dose of 117 mg IM will be due on 05/10. Depending on how patient is doing will re-evaluate need for changing antipsychotic to FGA. 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 -Ativan and Haldol PRN for agitation/aggression -SW on board for discharge planning. Encouraged patient to participate in groups to work on coping skills. he is currently on a deferral. patient will likely need placement in [facility] upon discharge, will discuss with [facility] possibility of this.
--- NOTE | 2023-04-19 10:00 | P.PN ---
Progress Note - Text Progress Note Date: 04/19/23 Interval history: Patient was seen today in his room. He sat up on his bed. Patient continues to be smiling during the interaction. He states that he is doing "okay". Continues to be fairly concrete. He did not report any problems last night. States that he slept fairly well. He has not been going to many groups however did state that he spoke with [facility] yesterday about his placement however did not understand where he will be going. Claims that his appetite is good, and he is mainly isolating to his room. Denying any medication side effects. At this time he is denying any visual hallucinations. Denying any suicidal or homicidal ideations intent or plan. MENTAL STATUS EXAM: General Appearance: Patient appears to be thin, poor dentition, long hair, stated age is alert. Patient appears to have fair hygiene and grooming. Behavior: Patient is sitting in bed, Smiling. Pleasant. Speech: Patient's speech is fluent and nonpressured. Mood/Affect: Patient reports their mood is "ok", affect is congruent and improving Suicidality/Homicidality: Patient denies having any homicidal ideation intent or plan. Denies any suicidal ideations intent or plan Perceptions: Patient denies any visual hallucinations claims that he is hearing voices, improving Though content/process: concrete, poverty of content mildly improving Memory and concentration: AOX2, grossly intact for the purposes of this session Judgment and insight: Chronically limited/poor, improving mildly IMPRESSIONS: Schizophrenia Intellectual disability Noncompliance with medications PLAN: -Patient is admitted under involuntary status to MHU for stabilization of psychiatric symptoms and safety. Patient is currently on a deferral. -Medications : Patient received Invega Sustenna 234 mg IM on 04/09, second dose of 156 mg IM was given on 04/13, monthly maintenance dose of 117 mg IM will be due on 05/10. Depending on how patient is doing will re-evaluate need for changing antipsychotic to FGA. 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 -Ativan and Haldol PRN for agitation/aggression - on board for discharge planning. Encouraged patient to participate in groups to work on coping skills. he is currently on a deferral. patient will likely need placement in correction upon discharge, will discuss with [facility] possibility of this.
--- NOTE | 2023-04-20 11:15 | P.PN ---
Progress Note - Text Progress Note Date: 04/20/23 Interval history: Patient was seen today in his room. He was lying in bed. Patient seems bright today, smiling during interview. He states that he is doing "good". Continues to be fairly concrete. He did not report any problems last night. States that he slept fairly well. Spoke with patient about discharge, and told him we are waiting on what his guardian and [facility], as to where to place him upon discharge. Patient states that he is still hearing the voices at times, but they are not saying bad things. Claims that his appetite is good, and he is mainly isolating to his room. Denying any medication side effects. At this time he is denying any visual hallucinations. Denying any suicidal or homicidal ideations intent or plan. MENTAL STATUS EXAM: General Appearance: Patient appears to be thin, poor dentition, long hair, stated age is alert. Patient appears to have fair hygiene and grooming. Behavior: Patient is sitting in bed, Smiling. Pleasant. Speech: Patient's speech is fluent and nonpressured. Mood/Affect: Patient reports their mood is "good", affect is congruent and im proving Suicidality/Homicidality: Patient denies having any homicidal ideation intent or plan. Denies any suicidal ideations intent or plan Perceptions: Patient denies any visual hallucinations claims that he is hearing voices, improving Though content/process: concrete, poverty of content mildly improving Memory and concentration: AOX2, grossly intact for the purposes of this session Judgment and insight: Chronically limited/poor, improving mildly IMPRESSIONS: Schizophrenia Intellectual disability Noncompliance with medications PLAN: -Patient is admitted under involuntary status to [facility]HU for stabilization of psychiatric symptoms and safety. Patient is currently on a deferral. -Medications : Patient received Invega Sustenna 234 mg IM on 04/09, second dose of 156 mg IM was given on 04/13, monthly maintenance dose of 117 mg IM will be due on 05/10. 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 -Ativan and Haldol PRN for agitation/aggression - on board for discharge planning. Encouraged patient to participate in groups to work on coping skills. he is currently on a deferral. [facility] declined long-term for him. will need to have a meeting with edith and [facility] to discuss other options, likely will need to have a new apartment and close [facility] follow up.
--- NOTE | 2023-04-21 17:05 | P.PN ---
Progress Note - Text Progress Note Date: 04/21/23 Interval history: Patient was seen today in his room. He was lying in bed. Patient seems bright today, smiling during interview. He states that he is doing "good". Denies depression and anxiety. Continues to be fairly concrete. He did not report any problems last night. He reports having some trouble with sleeping last night but admits to having slept during the daytime yesterday. He endorses auditory hallucinations but states that he is not experiencing this currently. He endorses improvement in auditory hallucinations since being on medication. Claims that his appetite is good, and he is mainly isolating to his room. He endorses fair energy and denies any other concerns. Denying any medication side effects. At this time he is denying any visual hallucinations. Denying any suicidal or homicidal ideation intent or plan. MENTAL STATUS EXAM: General Appearance: Patient appears to be thin, poor dentition, long hair, stated age is alert. Patient appears to have fair hygiene and grooming. Behavior: Patient is sitting in bed, Smiling. Pleasant. Speech: Patient's speech is fluent and nonpressured. Mood/Affect: Patient reports their mood is "good", affect is congruent and improving Suicidality/Homicidality: Patient denies having any homicidal ideation intent or plan. Denies any suicidal ideations intent or plan Perceptions: Patient denies any visual hallucinations claims that he is hearing voices, improving Though content/process: concrete, poverty of content mildly improving Memory and concentration: AOX2, grossly intact for the purposes of this session Judgment and insight: Chronically limited/poor, improving mildly IMPRESSIONS: Schizophrenia Intellectual disability Noncompliance with medications PLAN: -Patient is admitted under involuntary status to MHU for stabilization of psychiatric symptoms and safety. Patient is currently on a deferral. -Medications : Patient received Invega Sustenna 234 mg IM on 04/09, second dose of 156 mg IM was given on 04/13, monthly maintenance dose of 117 mg IM will be due on 05/10. 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 -Ativan and Haldol PRN for agitation/aggression - on board for discharge planning. Encouraged patient to participate in groups to work on coping skills. he is currently on a deferral. [facility] declined care home for him. will need to have a meeting with edith and the [facility] to discuss other options, likely will need to have a new apartment and close the [facility] follow up.
--- NOTE | 2023-04-22 18:20 | P.PN ---
Progress Note - Text Progress Note Date: 04/22/23 Interval history: Patient was seen today in his room. He was lying in bed. Patient seems bright today, smiling during interview. He states that he is doing "good". Denies depression and anxiety. Continues to be fairly concrete. He did not report any problems last night. He states he had trouble with sleep but admits that he slept majority of the day yesterday. He was encouraged to sleep during the night and not daytime. He was agreeable with increasing Seroquel. He endorses auditory hallucinations today and says that they are both female and male and are soft nature. He states that they sometimes tell him to eat, sleep and walk but he says they also say other things that he cannot recall. Claims that his appetite is good, and he is mainly isolating to his room. Although patient was walked to the activity room, he went back to his room. He endorses fair energy and denies any other concerns. Denying any medication side effects. At this time he is denying any visual hallucinations. Denying any suicidal or homicidal ideation intent or plan. MENTAL STATUS EXAM: General Appearance: Patient appears to be thin, poor dentition, long hair, stated age is alert. Patient appears to have fair hygiene and grooming. Behavior: Patient is sitting in bed, Smiling. Pleasant. Speech: Patient's speech is fluent and nonpressured. Mood/Affect: Patient reports their mood is "good", affect is congruent and improving Suicidality/Homicidality: Patient denies having any homicidal ideation intent or plan. Denies any suicidal ideations intent or plan Perceptions: Patient denies any visual hallucinations claims that he is hearing voices, improving Though content/process: concrete, poverty of content mildly improving Memory and concentration: AOX2, grossly intact for the purposes of this session Judgment and insight: Chronically limited/poor, improving mildly IMPRESSIONS: Schizophrenia Intellectual disability Noncompliance with medications PLAN: -Patient is admitted under involuntary status to [facility] for stabilization of psychiatric symptoms and safety. Patient is currently on a deferral. -Medications : Patient received Invega Sustenna 234 mg IM on 04/09, second dose of 156 mg IM was given on 04/13, monthly maintenance dose of 117 mg IM will be due on 05/10. Zoloft 100 mg nightly for mood/anxiety, increase seroquel to 50 mg qhs for adjunct psychosis/sleep. -Ativan and Haldol PRN for agitation/aggression -Discussed sleep hygiene -SW on board for discharge planning. Encouraged patient to participate in groups to work on coping skills. he is currently on a deferral. [facility] declined snf for him. will need to have a meeting with guardian and [facility] to discuss other o ptions, likely will need to have a new apartment and close [facility] follow up.
[2023-04-22] MEDS: QUEtiapine 50 MG TAB PO SCH (19:58)
--- NOTE | 2023-04-23 10:26 | P.PN ---
Progress Note - Text Progress Note Date: 04/23/23 Interval history: Patient was seen today in his room. He was lying in bed. He states that he is doing "good". Denies depression and anxiety. Continues to be fairly concrete. He was smiling and pleasant during the interview. He endorses auditory hallucinations today and says that they tell him to walk. Claims that his appetite is good, and he is mainly isolating to his room. He stated that he would like to talk to his mom to make a plan for discharge, and denies any other concerns. Denying any medication side effects. At this time he is denying any visual hallucinations. Denying any suicidal or homicidal ideation intent or plan. MENTAL STATUS EXAM: General Appearance: Patient appears to be thin, poor dentition, long hair, stated age is alert. Patient appears to have fair hygiene and grooming. Behavior: Patient is sitting in bed, Smiling. Pleasant. Speech: Patient's speech is fluent and nonpressured. Mood/Affect: Patient reports their mood is "good", affect is congruent and improving Suicidality/Homicidality: Patient denies having any homicidal ideation intent or plan. Denies any suicidal ideations intent or plan Perceptions: Patient denies any visual hallucinations claims that he is hearing voices, improving, non distressing. Though content/process: concrete, poverty of content mildly improving Memory and concentration: AOX2, grossly intact for the purposes of this session Judgment and insight: Chronically limited/poor, improving mildly IMPRESSIONS: Schizophrenia Intellectual disability Noncompliance with medications PLAN: -Patient is admitted under involuntary status to [facility]HU for stabilization of psychiatric symptoms and safety. Patient is currently on a deferral. -Medications : Patient received Invega Sustenna 234 mg IM on 04/09, second dose of 156 mg IM was given on 04/13, monthly maintenance dose of 117 mg IM will be due on 05/10. Zoloft 100 mg nightly for mood/anxiety, seroquel 50 mg qhs for adjunct psychosis/sleep. -Ativan and Haldol PRN for agitation/aggression - on board for discharge planning. Encouraged patient to participate in groups to work on coping skills. he is currently on a deferral. [facility] declined long term for him. will need to have a meeting with guardian and [facility] to discuss other options, likely will need to have a new apartment and close [facility] follow up.
--- NOTE | 2023-04-24 11:43 | P.PN ---
Progress Note - Text Progress Note Date: 04/24/23 Interval history: Patient was seen today in his room. He was lying in bed. He states that he is doing "ok" today. Denies depression and anxiety. Continues to be fairly concrete. He was smiling and pleasant during the interview. Continues to be smiling during the interaction. He endorses auditory hallucinations today but is not specific as to what they are saying. Patient states he is sleeping well at night. Claims that his appetite is good, and he is mainly isolating to his room. Still trying to come up with a plan for discharge. Patient denies any other concerns. Denying any medication side effects. At this time he is denying any visual hallucinations. Denying any suicidal or homicidal ideation intent or plan. MENTAL STATUS EXAM: General Appearance: Patient appears to be thin, poor dentition, long hair, stated age is alert. Patient appears to have fair hygiene and grooming. Behavior: Patient is sitting in bed, Smiling. Pleasant. Speech: Patient's speech is fluent and nonpressured. Mood/Affect: Patient reports their mood is "good", affect is congruent and improving Suicidality/Homicidality: Patient denies having any homicidal ideation intent or plan. Denies any suicidal ideations intent or plan Perceptions: Patient denies any visual hallucinations claims that he is hearing voices, improving, non distressing. Though content/process: concrete, poverty of content mildly improving Memory and concentration: AOX2, grossly intact for the purposes of this session Judgment and insight: Chronically limited/poor, improving mildly IMPRESSIONS: Schizophrenia Intellectual disability Noncompliance with medications PLAN: -Patient is admitted under involuntary status to [facility] for stabilization of psychiatric symptoms and safety. Patient is currently on a deferral. -Medications : Patient received Invega Sustenna 234 mg IM on 04/09, second dose of 156 mg IM was given on 04/13, monthly maintenance dose of 117 mg IM will be due on 05/10. Zoloft 100 mg nightly for mood/anxiety, seroquel 50 mg qhs for adjunct psychosis/sleep. -Ativan and Haldol PRN for agitation/aggression - on board for discharge planning. Encouraged patient to participate in groups to work on coping skills. he is currently on a deferral. [facility] declined residential for him. Ship[employer] attended meeting today with [facility] socialworker and patient's mother/guardian. It was decided amongst everyone that the route/plan for discharge will be that patient will be going to either a room and board versus a low-cost motel and have [facility] support increased services. Likely discharge on once this is arranged/set up.
--- NOTE | 2023-04-25 11:24 | P.PN ---
Progress Note - Text Progress Note Date: 04/25/23 Interval history: Patient was seen today in his room. He was lying in bed. Sat up on the bed for the interview. He states that he is doing "good". He was smiling and pleasant during the interview. Continues to be smiling during the interaction. He endorses auditory hallucinations today but they are positive in nature, telling him to "be good". Patient states he is sleeping well at night. Claims that his appetite is good, and he continues to isolate to his room for the most part. Spoke with mother, she is getting a polymer specialist [facility], so he feels comfortable returning home. Patient denies any other concerns. Denying any medication side effects. At this time he is denying any visual hallucinations. Denying any suicidal or homicidal ideation intent or plan. MENTAL STATUS EXAM: General Appearance: Patient appears to be thin, poor dentition, long hair, stated age is alert. Patient appears to have fair hygiene and grooming. Behavior: Patient is sitting in bed, Smiling. Pleasant. Speech: Patient's speech is fluent and nonpressured. Mood/Affect: Patient reports their mood is "good", affect is congruent and improving Suicidality/Homicidality: Patient denies having any homicidal ideation intent or plan. Denies any suicidal ideations intent or plan Perceptions: Patient denies any visual hallucinations claims that he is hearing voices, improving, non distressing. Though content/process: concrete, poverty of content mildly improving Memory and concentration: AOX2, grossly intact for the purposes of this session Judgment and insight: Chronically limited/poor, improving mildly IMPRESSIONS: Schizophrenia Intellectual disability Noncompliance with medications PLAN: -Patient is admitted under involuntary status to MHU for stabilization of psychiatric symptoms and safety. Patient is currently on a deferral. -Medications : Patient received Invega Sustenna 234 mg IM on 04/09, second dose of 156 mg IM was given on 04/13, monthly maintenance dose of 117 mg IM will be due on 05/10. Zoloft 100 mg nightly for mood/anxiety, seroquel 50 mg qhs for adjunct psychosis/sleep. -Ativan and Haldol PRN for agitation/aggression - on board for discharge planning. Encouraged patient to participate in groups to work on coping skills. he is currently on a deferral. [facility]entiary [facility]. Mother is getting a polymer specialist to bless patients home so patient feels safe returning there, likely discharge Sunday, awaiting [facility] to set up services..
--- NOTE | 2023-04-26 11:06 | P.PN ---
Progress Note - Text Progress Note Date: 04/26/23 Interval history: Patient was seen today in his room. He was lying in bed. Sat up on the bed for the interview. He states that he is doing "good". He was smiling and pleasant during the interview. Continues to be smiling during the interaction. He endorses auditory hallucinations today, but says that they are not saying anything right now. Patient states he did not sleep well last night, and just fell asleep after breakfast. Did not offer any reason as to why. Claims that his appetite is good, and he continues to isolate to his room for the most part. Temporary Receptionist spoke with patient about his mother getting a rocket propellant plant supervisor to bless his apartment, so patient feels comfortable going home. Patient stated he does not need to be present when this happens, and can be done before he gets discharged. Patient denies any other concerns. Denying any medication side effects. At this time he is denying any visual hallucinations. Denying any suicidal or homicidal ideation intent or plan. MENTAL STATUS EXAM: General Appearance: Patient appears to be thin, poor dentition, long hair, stated age is alert. Patient appears to have fair hygiene and grooming. Behavior: Patient is sitting in bed, Smiling. Pleasant. Speech: Patient's speech is fluent and nonpressured. Mood/Affect: Patient reports their mood is "good", affect is congruent and improving Suicidality/Homicidality: Patient denies having any homicidal ideation intent or plan. Denies any suicidal ideations intent or plan Perceptions: Patient denies any visual hallucinations claims that he is hearing voices, improving, non distressing. Though content/process: concrete, poverty of content mildly improving Memory and concentration: AOX2, grossly intact for the purposes of this session Judgment and insight: Chronically limited/poor, improving mildly IMPRESSIONS: Schizophrenia Intellectual disability Noncompliance with medications PLAN: -Patient is admitted under involuntary status to MHU for stabilization of psychiatric symptoms and safety. Patient is currently on a deferral. -Medications : Patient received Invega Sustenna 234 mg IM on 04/09, second dose of 156 mg IM was given on 04/13, monthly maintenance dose of 117 mg IM will be due on 05/10. Zoloft 100 mg nightly for mood/anxiety, seroquel 50 mg qhs for adjunct psychosis/sleep. -Ativan and Haldol PRN for agitation/aggression - on board for discharge planning. Encouraged patient to participate in groups to work on coping skills. he is currently on a deferral. [facility] declined alf for him. Mother is getting a rocket propellant plant supervisor to bless patients home so patient feels safe returning there, likely discharge Sunday, awaiting [facility] to set up services.
[2023-04-26] MEDS: MELATONIN 5 MG TABLET PO PRN (20:11)
--- NOTE | 2023-04-27 11:33 | P.PN ---
Progress Note - Text Progress Note Date: 04/27/23 Interval history: Patient was seen today in his room. He was lying in bed. Patient is in a ple asant mood, and smiling throughout the interview. He endorses auditory hallucinations today, but says that they are good in nature Patient states he did sleep well last night. Claims that his appetite is good, and he continues to isolate to his room for the most part, but does come out for meals, and occasionally sit in the TV room. Patient denies any other concerns. Denying any medication side effects. At this time he is denying any visual hallucinations. Denying any suicidal or homicidal ideation intent or plan. MENTAL STATUS EXAM: General Appearance: Patient appears to be thin, poor dentition, long hair, stated age is alert. Patient appears to have fair hygiene and grooming. Behavior: Patient is sitting in bed, Smiling. Pleasant. Speech: Patient's speech is fluent and nonpressured. Mood/Affect: Patient reports their mood is "good", affect is congruent and improving Suicidality/Homicidality: Patient denies having any homicidal ideation intent or plan. Denies any suicidal ideations intent or plan Perceptions: Patient denies any visual hallucinations claims that he is hearing voices, improving, non distressing. Though content/process: concrete, poverty of content mildly improving Memory and concentration: AOX2, grossly intact for the purposes of this session Judgment and insight: Chronically limited/poor, improving mildly IMPRESSIONS: Schizophrenia Intellectual disability Noncompliance with medications PLAN: -Patient is admitted under involuntary status to MHU for stabilization of psychiatric symptoms and safety. Patient is currently on a deferral. -Medications : Patient received Invega Sustenna 234 mg IM on 04/09, second dose of 156 mg IM was given on 04/13, monthly maintenance dose of 117 mg IM will be due on 05/10. Zoloft 100 mg nightly for mood/anxiety, seroquel 50 mg qhs for adjunct psychosis/sleep. -Ativan and Haldol PRN for agitation/aggression - on board for discharge planning. Encouraged patient to participate in groups to work on coping skills. he is currently on a deferral. [facility] declined senior living for him. Mother is getting a black top machine operator to bless patients home this weekend so patient feels safe returning there, likely discharge Sunday, awaiting [facility] to set up services.
--- NOTE | 2023-04-28 22:55 | P.PN ---
Progress Note - Text Progress Note Date: 04/28/23 Interval history: Interval History: The patient was seen today as coverage for Dr. Martino. Their chart was reviewed, and the case was discussed with the nursing staff. The patient reports fair sleep and appetite. The patient has been participating in groups and other unit activities. The patient has been taking their psychiatric medications and denies side effects. The patient reports feeling more stable mentally and denies suicidal or homicidal ideation. The patient reports still hearing "good voices" which are not bothering him. He denies any commanding hallucinations to harm self or others. No manic symptoms have been reported. MENTAL STATUS EXAM: General Appearance: Patient appears to be thin, poor dentition, long hair, stated age is alert, fair hygiene and grooming. Behavior: Patient is cooperative and pleasant. Speech: Patient's speech is fluent and non pressured. Mood/Affect: Patient reports their mood is "good", affect is congruent and improving Suicidal /Homicidal risk: Patient denies having any homicidal ideation intent or plan. Denies any suicidal ideation intent or plan Perceptions: Patient denies any visual hallucinations claims that he is hearing voices "good voices", improving, non distressing. Though content/process: concrete, poverty of content mildly improving Memory and concentration: AOX2, grossly intact for the purposes of this session Judgment and insight: Chronically limited/poor IMPRESSIONS: Schizophrenia Intellectual disability Noncompliance with medications PLAN: -Patient is admitted under involuntary status to MHU for stabilization of psychiatric symptoms and safety. Patient is currently on a deferral. Continue inpatient psychiatric hospitalization. Implement the following precautions as recommended by the admitting psychiatrist: elopement and suicide Consult the medical team immediately if any medical concerns arise. Educate the patient on the benefits of participating in groups and other unit activities and encourage active participation. Lab work ordered: Medications: Continue Invega Sustenna received 234 mg IM on 04/09, second dose of 156 mg IM was given on 04/13, monthly maintenance dose of 117 mg IM will be due on 05/10. . Continue Zoloft 100 mg nightly for mood/anxiety Continue Seroquel 50 mg qhs for adjunct psychosis/sleep. Continue PRN psychiatric Medications including Ativan and Haldol PRN for agitation/aggression Discharge planning is currently in progress.
--- NOTE | 2023-04-30 10:29 | P.PN ---
Progress Note - Text Progress Note Date: 04/30/23 Interval history: Patient was seen today in his room. He was lying in bed. Patient is in a ple asant mood. He endorses auditory hallucinations today, but says that they are good in nature. Patient states he did sleep well last night. Claims that his appetite is good, and he continues to isolate to his room for the most part, but does come out for meals, and occasionally will go to groups. Spoke with patient about his apartment being blessed by his woven label designer, patient happy about that, and will discharge tomorrow. Patient denies any other concerns. Denying any medication side effects. At this time he is denying any visual hallucinations. Denying any suicidal or homicidal ideation intent or plan. MENTAL STATUS EXAM: General Appearance: Patient appears to be thin, poor dentition, long hair, stated age is alert. Patient appears to have fair hygiene and grooming. Behavior: Patient is sitting in bed, Smiling. Pleasant. Speech: Patient's speech is fluent and nonpressured. Mood/Affect: Patient reports their mood is "good", affect is congruent and improving Suicidality/Homicidality: Patient denies having any homicidal ideation intent or plan. Denies any suicidal ideations intent or plan Perceptions: Patient denies any visual hallucinations claims that he is hearing voices, improving, non distressing. Though content/process: concrete, poverty of content mildly improving Memory and concentration: AOX2, grossly intact for the purposes of this session Judgment and insight: Chronically limited/poor, improving IMPRESSIONS: Schizophrenia Intellectual disability Noncompliance with medications PLAN: -Patient is admitted under involuntary status to MHU for stabilization of ps ychiatric symptoms and safety. Patient is currently on a deferral. -Medications : Patient received Invega Sustenna 234 mg IM on 04/09, second dose of 156 mg IM was given on 04/13, monthly maintenance dose of 117 mg IM will be due on 05/10. Zoloft 100 mg nightly for mood/anxiety, seroquel 50 mg qhs for adjunct psychosis/sleep. -Ativan and Haldol PRN for agitation/aggression - on board for discharge planning. Encouraged patient to participate in groups to work on coping skills. he is currently on a deferral. [facility] declined [facility] for him. Patients apartment was blessed over the weekend, so patient happy about returning home. discharge Sunday, [facility] has set up services.
--- NOTE | 2023-04-30 11:46 | P.PN ---
Progress Note - Text Progress Note Date: 04/29/23 Interval history: Interval History: The patient was seen today as coverage for Dr. Martino. Their chart was reviewed, and the case was discussed with the nursing staff. The patient presented the same as yesterday that he was pleasant, cooperative, with no signs of distress. He continued to report fair sleep and appetite, taking his psychiatric medications and denied side effects. The patient was seen socializing with other peers, and no reports of behavioral problems. The patient continued to hear voices which he described as "good voices" which are not distressing him. The patient denied commanding hallucinations to harm self or others. No manic symptoms have been reported or noticed with the staff. MENTAL STATUS EXAM: General Appearance: Patient appears to be thin, poor dentition, long hair, stated age is alert, fair hygiene and grooming. Behavior: Patient is cooperative and pleasant. Speech: Patient's speech is fluent and non pressured. Mood/Affect: Patient reports their mood is "good", affect is congruent and improving Suicidal /Homicidal risk: Patient denies having any homicidal ideation intent or plan. Denies any suicidal ideation intent or plan Perceptions: Patient denies any visual hallucinations claims that he is hearing voices "good voices", improving, non distressing. Though content/process: concrete, poverty of content mildly improving Memory and concentration: AOX2, grossly intact for the purposes of this session Judgment and insight: Chronically limited/poor IMPRESSIONS: Schizophrenia Intellectual disability Noncompliance with medications PLAN: -Patient is admitted under involuntary status to MHU for stabilization of psychiatric symptoms and safety. Patient is currently on a deferral. Continue inpatient psychiatric hospitalization. Implement the following precautions as recommended by the admitting psychiatrist: elopement and suicide Consult the medical team immediately if any medical concerns arise. Educate the patient on the benefits of participating in groups and other unit activities and encourage active participation. Lab work ordered: Medications: Continue Invega Sustenna received 234 mg IM on 04/09, second dose of 156 mg IM was given on 04/13, monthly maintenance dose of 117 mg IM will be due on 05/10. . Continue Zoloft 100 mg nightly for mood/anxiety Continue Seroquel 50 mg qhs for adjunct psychosis/sleep. Continue PRN psychiatric Medications including Ativan and Haldol PRN for agitation/aggression Discharge planning is currently in progress.
[2023-05-01 04:51] VITALS: BP 105/60; PULSE 101; RESP 15; TEMP 97.6
--- NOTE | 2023-05-01 11:09 | P.DS ---
Providers Date of admission: 04/13/23 22:53 Expected date of discharge: 05/01/23 Attending physician: Lester Martino MD Consults: 04/13/23 23:00 Consult Physician Routine Consulting Provider: Mally Perez Consult Reason/Comments: H&P for MHU admission Do you want consulting provider notified?: Yes Primary care physician: Kofi Sun - Discharge Diagnosis(es) (1) Noncompliance with medication regimen Current Visit: Yes Status: Acute Priority: Medium (2) Intellectual disability Current Visit: Yes Status: Acute Priority: Medium (3) Schizophrenia Current Visit: No Status: Acute Priority: High Hospital Course: Admission HPI: Admission note was completed by clinical writer "Patient presented to the hospital yesterday several hours after being discharged from the mental health unit. Patient has a history of schizophrenia and intellectual disability. Patient was picked up by his mother on day of discharge yesterday taken to his home and apparently was acting paranoid, bizarre and refusing to go into his home. Apparently the patient was making statements of the devil being in his house and him hearing voices and believes that it was "tainted". Patient was brought back to the hospital by his mother/guardian. Patient was seen today for psychiatric assessment. He was laying in bed, staring at the ceiling. He did not appear to be responding to internal stimuli. Patient continues to be fairly hesitant and concrete in his speech and thought process. He explained that "the apartment was given to someone else" and was somewhat illogical. He did claim that he was hearing voices however "not right now". He continued to talk about angels and also demons. He is not reporting any problems with his medications at this time. States that he slept fairly last night. Patient appears to be fairly calm and follows directions. He had stated that denies any visual hallucinations. Patient denies any suicidal or homicidal ideations intent or plan. Patient denies any flight of ideas racing thoughts and increased in goal directed behavior. Patient admits to using no recreational drugs or cigarettes." Hospital course: Upon admission to the unit patient was directable and agreeable to commence treatment and signed adult voluntary form. Patient is currently on an active deferral from previous admission. Patient got along well with other patients on the unit and followed unit protocol. Patient was compliant with the medications and denied any side effects throughout hospital course. Patient was started on Seroquel and increased to a dose of 50 mg nightly for mood stabilization/psychosis/insomnia. Patient Invega Sustenna 234 mg IM was given on 04/09, second dose of 156 mg IM was given on 04/13, next maintenance dose of 170 mg IM will be due on 05/10 at [facility]. Zoloft was continued at 100 mg nightly for mood/anxiety. Patient spoke of his stressors and engaged in therapy both group and individual. Patient was also seen by medical team for history and physical exam. Throughout the course of the hospitalization patient gradually improved with regards to mood, anxiety, psychosis/hallucinations, sleep and returned back to their baseline level of functioning. Patient does have chronic and persistent hallucinations, hearing voices mainly however these are not distressing and more positive in nature for him. On the day of discharge patient denied any suicidal or homicidal ideations intent or plan denied any auditory or visual hallucinations. Patient endorsed wanting to live for his health and family. The patient denied any access to guns or weapons. Patient denied any paranoia and did not endorse any delusions. Patient does not have a significant history of substance abuse and was counseled on abstaining from all substances including alcohol and marijuana. Patient was also counseled on the medications and need for regular compliance and was encouraged to follow-up with their outpatient appointment for mental health and also for primary care. Prior to discharge a family meeting will be arranged by social work specialist to answer any questions and ensure safety upon discharge. Patient will be returning back to his previous apartment, his data acquisition technician was able to bless his house/apartment prior to him coming back which patient was agreeable to. Mental status exam: General Appearance: Patient appears to be short in stature, thin, longer hair, poor dentition, stated age is alert, pleasant, and cooperative. Patient is in no acute distress and has improved hygiene and grooming Behavior: Patient is calmly seated without any agitated behavior. Speech: Patient's speech is fluent and nonpressured. Mood/Affect: Patient reports their mood is "good", affect is congruent and euthymic Suicidality/Homicidality: Patient denies having any suicidal or homicidal ideation intent or plan. Perceptions: Patient denies any auditory or visual hallucinations. Though content/process: There is no evidence of any delusional thought content and thought process is linear and goal-directed. Memory and concentration: AOX3, grossly intact for the purposes of this session. Can spell "WORLD" backwards correctly. Judgment and insight: Chronically limited, improved with guarded prognosis Impression: Schizophrenia Intellectual disability Noncompliance with medication treatment Plan: -Continue with discharge today as patient has improved and stabilized psychiatrically and is not currently an imminent threat to himself and/or others. -Continue medications: Seroquel p.o. 50 mg nightly for psychosis/sleep, Zoloft 100 mg nightly for mood/anxiety, patient is set to receive his next dose of Invega Sustenna 170 mg IM monthly dose on 05/10. -Patient was counseled on the need for medication compliance and appropriate follow-up at mental health and also primary care for medical issues. Patient verbalized understanding and agreed. -Social work to arrange for and conduct family meeting to ensure safety upon discharge and answer any questions/concerns. Social work also to arrange for patients follow up appointments with [facility] for psychiatric care along with follow up with primary care provider. -Patient counseled on abstaining from recreational drugs and marijuana and alcohol. Was informed/educated on the adverse effects on their physical and mental health. Patient verbally agreed and understood. -Patient was instructed to return to the hospital or seek immediate medical care if their psychiatric or medical symptoms do worsen or reoccur. ] Allergies Allergy/AdvReac Type Severity Reaction Status Date / Time adhesive AdvReac Itching Verified 04/13/23 23:26 Laboratory Results Urine Opiates Screen Negative (Negative) 04/13/23 19:50 Urine Methadone Screen Negative (Negative) 04/13/23 19:50 Ur Propoxyphene Screen Negative (Negative) 04/13/23 19:50 Urine Barbiturates Negative (Negative) 04/13/23 19:50 Ur Phencyclidine Scrn Negative (Negative) 04/13/23 19:50 Ur Amphetamine Screen Negative (Negative) 04/13/23 19:50 U Benzodiazepines Scrn Negative (Negative) 04/13/23 19:50 Urine Cocaine Screen Negative (Negative) 04/13/23 19:50 U Cannabinoids Screen Negative (Negative) 04/13/23 19:50 Urine Alcohol Negative (Negative) 04/13/23 19:50 Influenza Type A (PCR) Not Detected (Not Detectd) 04/13/23 20:02 Influenza Type B (PCR) Not Detected (Not Detectd) 04/13/23 20:02 RSV (PCR) Not Detected (Not Detectd) 04/13/23 20:02 SARS-CoV-2 (PCR) Not Detected (Not Detectd) 04/13/23 20:02 Vital Signs Temp 97.6 F 05/01/23 04:26 Pulse 101 H 05/01/23 04:26 Resp 15 05/01/23 04:26 BP 105/60 05/01/23 04:26 Pulse Ox 99 04/28/23 06:45 FiO2 Patient Condition at Discharge: Fair Plan - Discharge Summary Discharge Rx Participant: Yes New Discharge Prescriptions: New QUEtiapine [SEROquel] 50 mg PO HS 30 Days #30 tab Acetaminophen Tab [Tylenol] 650 mg PO Q4HR PRN tab PRN Reason: Mild Pain (Scale 1 To 3) Continue Pantoprazole [Protonix] 40 mg PO AC-BRKFST 30 Days #30 tab Paliperidone Palmitate [Invega Sustenna] 117 mg IM QMONTHLY #1 each Melatonin 5 mg PO HS PRN 30 Days #30 tab PRN Reason: Insomnia Sertraline [Zoloft] 100 mg PO HS 30 Days #30 tab Discharge Medication List Melatonin 5 mg PO HS PRN 30 Days #30 tab 04/13/23 [Rx] Paliperidone Palmitate [Invega Sustenna] 117 mg IM QMONTHLY #1 each 04/13/23 [Rx] Pantoprazole [Protonix] 40 mg PO AC-BRKFST 30 Days #30 tab 04/13/23 [Rx] Acetaminophen Tab [Tylenol] 650 mg PO Q4HR PRN tab 05/01/23 [Rx] QUEtiapine [SEROquel] 50 mg PO HS 30 Days #30 tab 05/01/23 [Rx] Sertraline [Zoloft] 100 mg PO HS 30 Days #30 tab 05/01/23 [Rx] Follow up Appointment(s)/Referral(s): [facility] [Outside] - 05/03/23 9:00 am (05/03/2023 9:00AM - 10:00AM VINCE HENRIQUEZ 05/11/2023 10:15AM - 10:30AM Generic Nurse 05/15/2023 2:00PM - 2:30PM FABIAN RAMIREZ 05/29/2023 11:00AM - 11:30AM FABIAN JAMES ) None,Stated [REFERRING] - 1-2 days Activity/Diet/Wound Care/Special Instructions: Avoid the use of street drugs and alcohol. Take all medications as prescribed. When you are in need of refills on your medications, please contact your medical provider and/or outpatient psychiatrist/provider to have this done. Please go to your scheduled outpatient appointment for aftercare treatment. If symptoms return or become worse, call the crisis line at and/or go to the nearest emergency room for evaluation. National Suicide Hotline 988. Discharge Disposition: HOME SELF-CARE
== END 2023-05-01 14:38 | disposition home or self-care (01) | DRG 750 ==
LOC: EC 14:46 → 3MHU 22:53
PROVIDERS: ADMIT Psychiatry & Neurology Psychiatry; ATTEND Psychiatry & Neurology Psychiatry
DX: F20.0 Paranoid schizophrenia (principal); F17.200 Nicotine dependence, unspecified, uncomplicated; F79 Unspecified intellectual disabilities; G47.00 Insomnia, unspecified; R45.851 Suicidal ideations; Z81.0 Family history of intellectual disabilities; Z91.199 Patient's noncompliance with other medical treatment and regimen due to unspecified reason; R62.50 Unspecified lack of expected normal physiological development in childhood; T43.96XA Underdosing of unspecified psychotropic drug, initial encounter; Z91.128 Patient's intentional underdosing of medication regimen for other reason; Z28.310 Unvaccinated for COVID-19; Z28.21 Immunization not carried out because of patient refusal; Z11.52 Encounter for screening for COVID-19; Z71.3 Dietary counseling and surveillance; K21.9 Gastro-esophageal reflux disease without esophagitis; F32.A Depression, unspecified; F41.9 Anxiety disorder, unspecified; Z79.899 Other long term (current) drug therapy
CPT/HCPCS: 80306; 82075; 87636; 99285

== ENCOUNTER 2023-07-29 06:00 | Inpatient (IN) | payer MEDICAID, OTHER ==
--- NOTE | 2023-07-29 06:34 | ED ---
Psych HPI - General Chief Complaint: Psychiatric Symptoms Stated Complaint: mental health Time Seen by Provider: 07/29/23 06:15 Source: patient, RN notes reviewed, old records reviewed Mode of arrival: ambulatory Limitations: no limitations - History of Present Illness Initial Comments: 38-year-old male presents emergency department chief complaint of needing psychiatric help. Patient states that he needs his medications. He is followed by [facility]. Patient states that he has been hearing voices he has a history of schizophrenia he has been admitted several times to psych patient denies any current illicit drug use or alcohol abuse he denies any physical complaints. Patient denies being suicidal currently. Patient states he is hearing voices. - Related Data Previous Rx's Medication Instructions Recorded Melatonin 5 mg PO HS PRN 30 Days #30 tab 04/13/23 Paliperidone Palmitate [Invega 117 mg IM QMONTHLY #1 each 04/13/23 Sustenna] Pantoprazole [Protonix] 40 mg PO AC-BRKFST 30 Days #30 tab 04/13/23 Acetaminophen Tab [Tylenol] 650 mg PO Q4HR PRN tab 05/01/23 QUEtiapine [SEROquel] 50 mg PO HS 30 Days #30 tab 05/01/23 Sertraline [Zoloft] 100 mg PO HS 30 Days #30 tab 05/01/23 Allergies Allergy/AdvReac Type Severity Reaction Status Date / Time adhesive AdvReac Itching Verified 04/13/23 23:26 Review of Systems ROS Statement: Those systems with pertinent positive or pertinent negative responses have been documented in the HPI. ROS Other: All systems not noted in ROS Statement are negative. Past Medical History Past Medical History: GERD/Reflux Additional Past Medical History / Comment(s): anemia, growth delay History of Any Multi-Drug Resistant Organisms: None Reported Past Surgical History: No Surgical Hx Reported Past Anesthesia/Blood Transfusion Reactions: No Reported Reaction Past Psychological History: Anxiety, Depression, Schizophrenia Smoking Status: Current every day smoker Past Alcohol Use History: None Reported Past Drug Use History: None Reported - Past Family History Father Additional Family Medical History / Comment(s): Stomach surgery of unknown reason. General Exam General appearance: alert, in no apparent distress Head exam: Present: atraumatic, normocephalic, normal inspection Eye exam: Present: normal appearance, PERRL, EOMI. Absent: scleral icterus, conjunctival injection, periorbital swelling ENT exam: Present: normal exam, normal oropharynx, mucous membranes moist Neck exam: Present: normal inspection, full ROM. Absent: tenderness, meningismus, lymphadenopathy Respiratory exam: Present: normal lung sounds bilaterally. Absent: respiratory distress, wheezes, rales, rhonchi, stridor Cardiovascular Exam: Present: regular rate, normal rhythm, normal heart sounds. Absent: systolic murmur, diastolic murmur, rubs, gallop, clicks Neurological exam: Present: alert Psychiatric exam: Present: flat affect Course Vital Signs 07/29/23 06:05 Temperature 97.7 F Pulse Rate 84 Respiratory 16 Rate Blood Pressure 114/63 O2 Sat by Pulse 100 Oximetry Medical Decision Making - Medical Decision Making Was pt. sent in by a medical professional or institution (, PA, LOSS PREVENTION/SAFETY DISTRICT MANAGER, urgent care, hospital, or long-term...) When possible be specific @ -No Did you speak to anyone other than the patient for history (EMS, parent, family, police, friend...)? What history was obtained from this source @ -No Did you review nursing and triage notes (agree or disagree)? Why? @ -I reviewed and agree with nursing and triage notes Were old charts reviewed (outside hosp., previous admission, EMS record, old EKG, old radiological studies, urgent care reports/EKG's, long-term records)? Report findings @ -No old charts were reviewed Differential Diagnosis (chest pain, altered mental status, abdominal pain women, abdominal pain men, vaginal bleeding, weakness, fever, dyspnea, syncope, headache, dizziness, GI bleed, back pain, seizure, CVA, palpatations, mental health, musculoskeletal)? @ -Differential Mental Health Depression, anxiety, bipolar, psychosis, schizophrenia, borderline personality, situational depression, adjustment disorder, behavioral disorder, brain tumor, malingering, substance abuse, encephalopathy, medication reaction, dementia, hypothyroidism, degenerative neurologic disorder, lupus.... This is not meant to be all-inclusive list EKG interpreted by me (3pts min.). @ -None X-rays interpreted by me (1pt min.). @ -None done CT interpreted by me (1pt min.). @ -None done U/S interpreted by me (1pt. min.). @ -None done What testing was considered but not performed or refused? (CT, X-rays, U/S, labs)? Why? @ -None What meds were considered but not given or refused? Why? @ -None Did you discuss the management of the patient with other professionals (professionals i.e. , PA, LOSS PREVENTION/SAFETY DISTRICT MANAGER, lab, RT, psych nurse, social science instructor, liner inserter, teacher, light armored reconnaissance officer, caser)? Give summary @ -EPS evaluated the patient recommended inpatient treatment with psychiatry Was smoking cessation discussed for >3mins.? @ -No Was critical care preformed (if so, how long)? @ -No Were there social determinants of health that impacted care today? How? (Homelessness, low income, unemployed, alcoholism, drug addiction, transportation, low edu. Level, literacy, decrease access to med. care, halfway, rehab)? @ -No Was there de-escalation of care discussed even if they declined (Discuss DNR or withdrawal of care, Hospice)? DNR status @ -No What co-morbidities impacted this encounter? (DM, HTN, Smoking, COPD, CAD, Cancer, CVA, ARF, Chemo, Hep., AIDS, mental health diagnosis, sleep apnea, morbid obesity)? @ -None Was patient admitted / discharged? Hospital course, mention meds given and route, prescriptions, significant lab abnormalities, going to OR and other pertinent info. @ -Admitted to [facility] for psychiatric treatment Undiagnosed new problem with uncertain prognosis? @ -No Drug Therapy requiring intensive monitoring for toxicity (Heparin, Nitro, Insulin, Cardizem)? @ -No Were any procedures done? @ -No Diagnosis/symptom? @ -Acute psychosis, schizophrenia Acute, or Chronic, or Acute on Chronic? @ -Acute Uncomplicated (without systemic symptoms) or Complicated (systemic symptoms)? @ -Complicated Side effects of treatment? @ -No Exacerbation, Progression, or Severe Exacerbation? @ -No Poses a threat to life or bodily function? How? (Chest pain, [place], [place], pneumonia, PE, COPD, DKA, ARF, appy, cholecystitis, CVA, Diverticulitis, Homicidal, Suicidal, threat to staff... and all critical care pts) @ -No - Lab Data Lab Results 07/29/23 Range/Units 06:30 SARS-CoV-2 (PCR) Not Detected (Not Detectd) Disposition Clinical Impression: Psychosis, Schizophrenia Disposition: TRANSFER TO PSYCH HOSP/UNIT Referrals: Kofi Sun MD [Primary Care Provider] - 1-2 days Time of Disposition: 09:08
[2023-07-29] MEDS ORDERED: LORazepam 2 MG/ML INJ IM PRN (09:48)
[2023-07-29] MEDS ORDERED: haloperidoL 5 MG TAB PO PRN (09:48)
[2023-07-29] MEDS ORDERED: HALOPERIDOL LACTATE 5 MG/ML 1 ML VIAL IM PRN (09:48)
[2023-07-29] MEDS ORDERED: MAGNESIUM HYDROXIDE 2,400 MG/30 ML CUP PO PRN (09:48)
[2023-07-29] MEDS ORDERED: MAG HYDROX/AL HYDROX/SIMETH 355 ML BOTTLE PO PRN (09:48)
[2023-07-29] MEDS ORDERED: ACETAMINOPHEN TAB 325 MG TAB PO PRN (09:48)
[2023-07-29] MEDS ORDERED: LORazepam 1 MG TAB PO PRN (09:48)
[2023-07-29] MEDS ORDERED: IBUPROFEN 600 MG TAB PO PRN (09:48)
--- NOTE | 2023-07-29 12:25 | P.HP ---
Psychiatric H&P - . H&P Date: 07/29/23 History & Physical: Allergies Allergy/AdvReac Type Severity Reaction Status Date / Time adhesive AdvReac Itching Verified 07/29/23 11:42 Vital Signs Temp 97.5 F L 07/29/23 10:44 Pulse 82 07/29/23 10:44 Resp 18 07/29/23 10:44 BP 100/57 07/29/23 10:44 Pulse Ox 99 07/29/23 10:44 FiO2 Intake & Output 07/28/23 07/29/23 07/29/23 18:59 06:59 18:59 Weight 53.524 kg 49.243 kg Laboratory Last Values SARS-CoV-2 (PCR) Not Detected (Not Detectd) 07/29/23 06:30 07/29/23 12:18 Active Medications Acetaminophen (Acetaminophen Tab 325 Mg Tab) 650 mg PO Q4HR PRN PRN Reason: Mild Pain (Scale 1 to 3) Al Hydroxide/Mg Hydroxide (Mag Hydrox/Al Hydrox/Simeth 355 Ml Bottle) 30 ml PO Q4HR PRN PRN Reason: GI Upset Haloperidol (Haloperidol 5 Mg Tab) 5 mg PO Q6HR PRN PRN Reason: Agitation Haloperidol Lactate (Haloperidol Lactate 5 Mg/Ml 1 Ml Vial) 5 mg IM Q6HR PRN PRN Reason: Severe Agitation Ibuprofen (Ibuprofen 600 Mg Tab) 600 mg PO Q6HR PRN PRN Reason: Moderate Pain (Scale 4 to 6) Lorazepam (Lorazepam 1 Mg Tab) 1 mg PO Q6HR PRN PRN Reason: Anxiety Lorazepam (Lorazepam 2 Mg/Ml Inj) 1 mg IM Q6HR PRN PRN Reason: Severe Anxiety Magnesium Hydroxide (Magnesium Hydroxide 2,400 Mg/30 Ml Cup) 2,400 mg PO DAILY PRN PRN Reason: Constipation this is a psychiatric assessment on Lyndon rEickson who is a 38-year-old male with long history of mental illness Patient is a very poor historian and states that he is here because he wants to have his medication adjusted Patient response after long delays and is unable to comprehend intermittently Patient had to be repeated the question several times but wouldn't give responses that were unrelated Patient states that he knows his family He states that there is nothing else wrong Patient otherwise continues to stare and mumbles some answers that were unintelligible Staff is reported that the patient has been hospitalized here on several occasions and the that his mom is his guardian The patient also was very paranoid about going to his own apartment and that they had actually tried to have a ice cream truck driver bless the house so that he could get back in their Patient has been compliant with his medications Following is a self from the assessment done in the ER before hospitalization since there is no other collateral information available '' :38-year-old male presents emergency department chief complaint of needing psychiatric help. Patient states that he needs his medications. He is followed by [facility]. Patient states that he has been hearing voices he has a history of schizophrenia he has been admitted several times to psych patient denies any current illicit drug use or alcohol abuse he denies any physical complaints. Patient denies being suicidal currently. Patient states he is hearing voices.'' Past Medical History: From the chart Past Medical History: GERD/Reflux Additional Past Medical History / Comment(s): anemia, growth delay History of Any Multi-Drug Resistant Organisms: None Reported Past Surgical History: No Surgical Hx Reported Past Anesthesia/Blood Transfusion Reactions: No Reported Reaction Past Psychological History: Anxiety, Depression, Schizophrenia Smoking Status: Current every day smoker Past Alcohol Use History: None Reported Past Drug Use History: None Reported mental status examination: reveals a very thin build sure station male who was dressed in the hospital gown Patient has a scraggly couch and appears unkept Affect remains flat Behavior: Patient tries to cooperate and remains relax laying down in the bed Speech was clear but MT where patient seems to mumbles some answers and at times seems to have much difficulty with comprehension Thought processes are concrete and disorganized Patient also exhibits some perseveration Patient was asked several times about any auditory or visual hallucinations but did not respond Patient's formal and operational judgment and insight are impaired 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
[2023-07-29 20:26] LABS: Appearance,Urine Clear (Clear); Bilirubin,Urine Negative (Negative); Blood,Urine Negative (Negative); Color,Urine Light Yellow; Glucose,Urine (UA) Negative (Negative); Ketones,Urine Negative (Negative); Leukocyte Esterase,Urine Negative (Negative); Nitrite,Urine Negative (Negative); PH, Urine 6.5 (5.0-8.0); Protein,Urine Negative (Negative); Specific Gravity,Urine 1.013 (1.001-1.035); Urobilinogen,Urine <2.0 mg/dL (<2.0)
[2023-07-29 21:02] LABS: Amphetamine Screen,Urine Not Detected (NotDetected); Barbiturate Screen,Urine Not Detected (NotDetected); Benzodiazepines Screen,Urine Not Detected (NotDetected); Cocaine Screen,Urine Not Detected (NotDetected); Methadone Screen, Urine Not Detected (NotDetected); Opiate Screen,Urine Not Detected (NotDetected); Oxycodone Screen, Urine Not Detected (NotDetected); Phencyclidine Screen,Urine Not Detected (NotDetected); Tricyclic Antidepressant,Urine Not Detected (NotDetected); Urn Cannabinoid Scrn Not Detected (NotDetected)
[2023-07-30 12:21] VITALS: BMI 19.2
--- NOTE | 2023-07-30 13:54 | P.CONS ---
History of Present Illness - Reason for Consult Consult date: 07/30/23 gerd - History of Present Illness Lyndon is a 38-year-old male patient in the office. He is followed at [facility]. He came the emergency room complaining of 6 hearing voices and that he has a history of schizophrenia he was seen in our office for reflux. He indicates that currently her symptoms are controlled. Also has a history of growth delay. He is an everyday smoker. Currently denies any chest pains pressures or short ness of breath. His vital signs are stable. He was seen on the psychiatric floor today. Review of Systems All systems: negative Past Medical History Past Medical History: GERD/Reflux Additional Past Medical History / Comment(s): anemia, growth delay History of Any Multi-Drug Resistant Organisms: None Reported Past Surgical History: No Surgical Hx Reported Past Anesthesia/Blood Transfusion Reactions: No Reported Reaction Past Psychological History: Anxiety, Depression, Schizophrenia Smoking Status: Current every day smoker Past Alcohol Use History: None Reported Past Drug Use History: None Reported - Past Family History Father Additional Family Medical History / Comment(s): Stomach surgery of unknown reason. Medications and Allergies Home Medications Medication Instructions Recorded Confirmed Type Paliperidone IM [Invega Sustenna] 156 mg IM Q28D 07/29/23 07/29/23 History QUEtiapine [SEROquel] 50 mg PO DIRECTED 07/29/23 07/29/23 History Sertraline [Zoloft] 100 mg PO DIRECTED 07/29/23 07/29/23 History Allergies Allergy/AdvReac Type Severity Reaction Status Date / Time adhesive AdvReac Itching Verified 07/29/23 11:42 Physical Exam Vitals: Vital Signs Temp Pulse Resp BP 07/30/23 06:37 98.6 F 71 14 111/55 Intake and Output 07/29/23 07/30/23 07/30/23 22:59 06:59 14:59 Other: Weight 49.243 kg GENERAL: Thin male short in stature and in no acute distress. HEAD: Atraumatic, normocephalic. EYES: Pupils equal round and reactive to light, extraocular movements intact, sclera anicteric, conjunctiva are normal. ENT:nares patent, oropharynx clear without exudates. Moist mucous membranes. NECK: Normal range of motion, supple without lymphadenopathy or JVD, no thyromegaly LUNGS: Breath sounds clear to auscultation bilaterally and equal. No wheezes rales or rhonchi. HEART: Regular rate and rhythm without murmurs, rubs or gallops.S1S2 Normal ABDOMEN: Soft, nontender, normoactive bowel sounds. No guarding, no rebound. No masses appreciated. EXTREMITIES: Normal range of motion, no pitting or edema. No clubbing or cyanosis. NEUROLOGICAL: Cranial nerves II through XII grossly intact. Normal speech, normal gait. PSYCH: Deferred to psychiatry SKIN: Warm, Dry, normal turgor, no rashes or lesions noted. Assessment and Plan (1) Acid reflux Current Visit: Yes Status: Acute Code(s): K21.9 - GASTRO-ESOPHAGEAL REFLUX DISEASE WITHOUT ESOPHAGITIS SNOMED Code(s): 804384677 (2) Schizophrenia Current Visit: Yes Status: Acute Priority: High Code(s): F20.9 - SCHIZOPHRENIA, UNSPECIFIED SNOMED Code(s): 29379541 (3) Acute psychosis Current Visit: No Status: Acute Code(s): F23 - BRIEF PSYCHOTIC DISORDER SNOMED Code(s): 55428641187555 (4) Chronic schizophrenia Current Visit: No Status: Acute Code(s): F20.9 - SCHIZOPHRENIA, UNSPECIFIED SNOMED Code(s): 16643153 (5) Intellectual disability Current Visit: No Status: Acute Priority: Medium Code(s): F79 - UNSPECIFIED INTELLECTUAL DISABILITIES SNOMED Code(s): 987399683 (6) 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 Will reorder his medication he does have Milk of Magnesia for constipation and or constipation. Will follow him with you as needed thank you very much for this consultation
[2023-07-30 14:54] LABS: ALT 14 U/L (4-49); AST 25 U/L (17-59); African American GFR (CKD) >90 (>60 ml/min/1.73 sqM); Alkaline Phosphatase 65 U/L (38-126); Anion Gap 9 mmol/L; Bilirubin, Delta 0.2 mg/dL (0.0-0.2); Bilirubin,Unconjugated 0.1 mg/dL (0.0-1.1); Blood Urea Nitrogen 10 mg/dL (9-20); Carbon Dioxide 27 mmol/L (22-30); Chloride 105 mmol/L (98-107); Glucose 69 mg/dL (74-99); Non-African American GFR(CKD) >90 (>60 ml/min/1.73 sqM); Sodium 141 mmol/L (137-145); Total Bilirubin 0.3 mg/dL (0.2-1.3); Total Protein 7.5 g/dL (6.3-8.2)
[2023-07-30 15:06] LABS: Basophils % (A) 0 %; Eosinophils # (A) 0.3 k/uL (0-0.7); Eosinophils % (A) 3 %; HCT 37.2 % (39.0-53.0); HGB 11.6 gm/dL (13.0-17.5); Hypochromasia Slight; Lymphocytes # (A) 1.1 k/uL (1.0-4.8); Lymphocytes % (A) 8 %; MCH 24.6 pg (25.0-35.0); MCHC 31.3 g/dL (31.0-37.0); MCV 78.5 fL (80.0-100.0); Mean Platelet Volume 7.1; Monocytes # (A) 0.3 k/uL (0-1.0); Monocytes % (A) 2 %; Neutrophils % (A) 86 %; Platelet Count 295 k/uL (150-450); RBC 4.74 m/uL (4.30-5.90); RDW 15.5 % (11.5-15.5); WBC 12.7 k/uL (3.8-10.6)
[2023-07-30] MEDS ORDERED: HALOPERIDOL LACTATE 5 MG/ML 1 ML VIAL IM PRN (15:30)
[2023-07-30] MEDS ORDERED: haloperidoL 5 MG TAB PO PRN (15:31)
[2023-07-30 19:00] LABS: Chol/HDL Ratio 3.44 Ratio; LDL Cholesterol,Calculated 80.1 mg/dL (0.0-131.0); VLDL Calculation 12.12 mg/dL (5.00-40.00)
--- NOTE | 2023-07-30 21:27 | P.PN ---
Progress Note - Text Progress Note Date: 07/30/23 In-Patient Follow-up Chief Complaint: The patient was not able to give the chief compliant. Subjective: The patient wandering in the hallway. Intermittently he would stop and stare looking uo and mumble. He as unable to make any coherent conversation. The patient did not pay any attention when he aske to come to the office. He walked few steps and then turned around continued his routine. According to the nursing staff, the patient is very distracted by internal stimuli and walks in the hallway and mumbles. The patient is on Invega sustenna 156mg q28 days. His next shot is due tomorrow. He was showing decompensation due to non-compliance with his Seroquel and Zoloft, leading his hospitalization. The patient has long standing h/o schizophrenia and deficit intellectual functioning. Sleep and Appetite: Fair. Interim History: Behavioral Changes: PRN meds/isolation/restraints/ change in status: None. Change in medical condition: No change. Change in medications: No change. Side effects from Medications: None. Objective- MSE: Alert and inattentive. He was preoccupied with internal stimuli and his ritual. Dressed and Groomed: adequately. Pleasant and uncooperative. Psychomotor Activity: reduced. Speech: Low tone, quality, underproductive. Mood: Could not assessed. Affect: Flat. SI or HI: None noted Perceptual disturbance: Hallucinatory behavior noted. Thought Content: No overt paranoia or other delusional thinking noted. Thought Process: Poverty of speech with thought blocked. Cognition: Could not be assessed. Judgment and Insight: Poor. AIMS: Normal. Labs: Available labs reviewed. Diagnosis: Residual Schizophrenia, H/O Intellectual impairment. Plan and recommendation: Continue current Medications. The patient to get his next shot tomorrow. Add Seroquel 25 mg po qhs and Zoloft 25 mg po daily. Monitor MS and side effects of medications and adjust medications accordingly. Provide supportive psychotherapy. The patient provided psychoeducation. The patient to continue attending the clements activities. Medication Consent with explanation of risk/benefits and side effects: Explained and obtained.
[2023-07-30] MEDS: QUEtiapine 25 MG TAB PO SCH (21:37)
[2023-07-31] MEDS: SERTRALINE 25 MG TAB PO SCH (10:11)
[2023-07-31] MEDS: PANTOPRAZOLE 40 MG TABLET PO SCH (10:11)
[2023-07-31 11:58] LABS: Basophils % (A) 0 %; Eosinophils # (A) 0.5 k/uL (0-0.7); Eosinophils % (A) 5 %; HCT 39.4 % (39.0-53.0); HGB 12.1 gm/dL (13.0-17.5); Hypochromasia Slight; Lymphocytes # (A) 1.3 k/uL (1.0-4.8); Lymphocytes % (A) 11 %; MCH 24.1 pg (25.0-35.0); MCHC 30.7 g/dL (31.0-37.0); MCV 78.6 fL (80.0-100.0); Mean Platelet Volume 6.7; Monocytes # (A) 0.4 k/uL (0-1.0); Monocytes % (A) 3 %; Neutrophils % (A) 80 %; Platelet Count 362 k/uL (150-450); RBC 5.02 m/uL (4.30-5.90); RDW 15.5 % (11.5-15.5); WBC 11.2 k/uL (3.8-10.6)
[2023-07-31 12:14] LABS: ALT 16 U/L (4-49); AST 32 U/L (17-59); African American GFR (CKD) >90 (>60 ml/min/1.73 sqM); Albumin 4.3 g/dL (3.5-5.0); Alkaline Phosphatase 67 U/L (38-126); Anion Gap 11 mmol/L; Blood Urea Nitrogen 11 mg/dL (9-20); Calcium 9.1 mg/dL (8.4-10.2); Carbon Dioxide 27 mmol/L (22-30); Chloride 105 mmol/L (98-107); Glucose 99 mg/dL (74-99); Non-African American GFR(CKD) >90 (>60 ml/min/1.73 sqM); Potassium 4.1 mmol/L (3.5-5.1); Sodium 143 mmol/L (137-145); Total Bilirubin 0.3 mg/dL (0.2-1.3); Total Protein 7.9 g/dL (6.3-8.2)
--- NOTE | 2023-07-31 21:52 | P.PN ---
Progress Note - Text Progress Note Date: 07/31/23 In-Patient Follow-up Chief Complaint: I feel fine Subjective: The patient noted that he is doing good. He held normal conversation. He was not having any staring spells. He was not mumbling to self or walking back and forth and standing in one place. He responded to the questions appropriately. He was spontaneous in his responses. He did not initiate conversation but responded in a reasonable manner. He reported no side effects. He noted attending one group. Overall, patient looked much different than yesterday. Leading questions: The patient Depression and Anxiety. Denied SI or HI. Admitted to paranoia. Denied any A/v hallucinations. Sleep and Appetite: Fine. Interim History: Behavioral Changes: PRN meds/isolation/restraints/ change in status: None. Change in medical condition: No change. Change in medications: No change. Side effects from Medications: None. Objective- MSE: Alert and attentive. Orientation times three. Dressed and Groomed: Appropriately. Pleasant and cooperative. Psychomotor Activity: Normal. Speech: Normal in tone, quality, and quantity. Mood: I feel fine Affect: Appropriate to the mood. SI or HI: None. Perceptual disturbance: No hallucinatory behavior observed. Thought Content: Mild paranoia, no other delusional thinking noted. Thought Process: Normal. Cognition: Intact Judgment and Insight: fair. AIMS: Normal. Labs: No new labs. Diagnosis: No change. Plan and recommendation: Continue current Medications. Monitor MS and side effects of medications and adjust medications accordingly. Provide supportive psychotherapy. The patient provided psychoeducation. The patient to continue attending the clements activities. Medication Consent with explanation of risk/benefits and side effects: Explained and obtained
--- NOTE | 2023-08-01 15:07 | P.PN ---
Progress Note - Text Progress Note Date: 08/01/23 In-Patient Follow-up Chief Complaint: You cant help me Subjective: the patient did not hold much conversation. He was preoccupied and appeared suspicious and fearful. He demeanor was very different that yesterday. The patient continues to walk in the halls. His interaction with peers and staff in limited. Leading questions: The patient did not respond. Sleep and Appetite: Fair. Interim History: Behavioral Changes: PRN meds/isolation/restraints/ change in status: None Change in medical condition: No change. Change in medications: No change. Side effects from Medications: None. Objective- MSE: Alert and attentive. Could not be assessed. Dressed and Groomed: Appropriately. Pleasant and semi-cooperative. Psychomotor Activity: Normal. Speech: Normal in tone, quality, and underproductive Mood: Anxious Affect: Suspicious and fearful SI or HI: None noted Perceptual disturbance: No hallucinatory behavior noted. Thought Content: Appeared paranoid. No other delusional thinking noted. Thought Process: Normal Cognition: Intact Judgment and Insight: Poor. AIMS: Normal. Labs: No new labs. Diagnosis: No change. Plan and recommendation: Continue current Medications. Increase dose of Seroquel and Zoloft. Monitor MS and side effects of medications and adjust medications accordingly. Provide supportive psychotherapy. The patient provided psychoeducation. The patient to continue attending the clements activities. Medication Consent with explanation of risk/benefits and side effects: Explained and obtained.
[2023-08-01] MEDS: QUEtiapine 50 MG TAB PO SCH (21:10)
[2023-08-02] MEDS: SERTRALINE 50 MG TAB PO SCH (08:37)
[2023-08-02] MEDS: PALIPERIDONE IM 156 MG/ML SYG IM SCH (16:21)
--- NOTE | 2023-08-02 17:44 | P.PN ---
Progress Note - Text Progress Note Date: 08/02/23 In-Patient Follow-up Chief Complaint: I want to go home Subjective: The patient held some conversation but was focused on being discharged. When asked does feel better than before like he was day before yesterday, the patient became quiet started staring and then mumbled. After a little he reiterated about going home. When asked he is hearing voices or feeling suspicious the patient did not respond he walked with for some distance mostly quiet. He did not talk. He seemed better than yesterday but not as good as he was day before yesterday. He will be getting his Invega sustenna today. The patient continues to walk in the halls. His interaction with peers and staff in limited. He is compliant with medications. Leading questions: The patient did not respond. Sleep and Appetite: Fair. Interim History: Behavioral Changes: PRN meds/isolation/restraints/ change in status: None Change in medical condition: No change. Change in medications: No change. Side effects from Medications: None. Objective- MSE: Alert and attentive. Dressed and Groomed: Adequately. Pleasant and cooperative. Psychomotor Activity: Normal. Speech: Normal in tone, quality, and underproductive Mood: Anxious Affect: Silly. He was smiling inappropriately. SI or HI: None noted Perceptual disturbance: No hallucinatory behavior noted. Thought Content: Appeared paranoid. No other delusional thinking noted. Thought Process: Normal Cognition: Intact Judgment and Insight: Poor. AIMS: Normal. Labs: No new labs. Diagnosis: No change. Plan and recommendation: Continue current Medications. He will get Invega sustenna today. Monitor MS and side effects of medications and adjust medicat ions accordingly. Provide supportive psychotherapy. The patient provided psychoeducation. The patient to continue attending the clements activities. Medication Consent with explanation of risk/benefits and side effects: Explained and obtained.
--- NOTE | 2023-08-03 13:22 | P.PN ---
Progress Note - Text Progress Note Date: 08/03/23 Interval history: Patient was seen napping just before lunchtime. On awakening, he is calm but guarded and passively engaged in assessment. There continues to be a delay in his responses, thought blocking, appears to be responding to internal stimuli, however he denies this when asked directly about AVH. He appears to be a poor historian since he appears to minimize and deny his symptoms, and giving inconsistent answers. He received the Invega Sustenna 156 mg IM dose yesterday, is tolerating it without any reported side effects. At this time, patient denies any suicidal or homicidal ideation, intent or plan. He denies auditory or visual hallucinations today, but reports he hears voices sometimes. Patient denies any side effects from the medications and has been compliant with meds. Mental status exam: General Appearance: Patient appears to be stated age, disheveled, poor dentition, malodorous Behavior: No agitated behavior. Calm, but passively engaged in assessment, guarded. Withdrawn to room, napping around lunchtime. Speech: Patient's speech is fluent, low soft tone and non-pressured. Mood/Affect: Mood is good, affect is blunted and constricted. Suicidality/Homicidality: Patient denies having any suicidal or homicidal ideation intent or plan. Perceptions: Patient denies any auditory or visual hallucinations, however appears to be responding to internal stimuli with thought blocking. Though content/process: There is no evidence of any overt fixed delusional thought content on my assessment, and thought process is concrete. Memory and concentration: AOX3, grossly intact for the purposes of this session Judgment and insight: poor Assessment/Plan: Continue with current diagnosis. Patient continues to meet criteria for inpatient psychiatric admission for symptom stabilization and safety. Invega Sustenna 156 mg IM given yesterday 08/02/23. Increase Seroquel from 50 mg QHS to 100 mg QHS for augmentation/sleep. Monitor for medication compliance and for any psychotropic medication side effects. Will continue to monitor ongoing response to treatment. Encouraged participation in milieu.
[2023-08-03] MEDS: QUEtiapine 100 MG TAB PO SCH (21:21)
--- NOTE | 2023-08-04 16:28 | P.PN ---
Progress Note - Text Progress Note Date: 08/04/23 Interval history: Patient was seen walking the hallways this afternoon and appears to be engaged in self-dialogue, mumbling to himself, smiling/laughing to himself. On assessment, he appears to be a poor historian due to poor insight. There continues to be a delay in his responses, thought blocking, responding to internal stimuli, however he denies this when asked directly about AVH again today. He received the Invega Sustenna 156 mg IM dose two days ago, and we discussed adding an additional Invega 3 mg daily. When asked about suicidal ideation, patient stated "I don't know", seemed unsure how to answer the question and appeared to respond to internal stimuli. Patient denies any side effects from the medications and has been compliant with meds. Mental status exam: General Appearance: Patient appears to be stated age, disheveled, poor dentition. Behavior: No agitated behavior. Calm, passively engaged, guarded. Speech: Patient's speech is fluent, low soft tone and non-pressured. Mood/Affect: Mood is good, affect is broad smiles. Suicidality/Homicidality: Patient denies having any suicidal or homicidal ideation intent or plan. Perceptions: Patient denies any auditory or visual hallucinations, however appears to be responding to internal stimuli with thought blocking. Though content/process: He does not express overt fixed delusional thought content on my assessment, and thought process is concrete. Memory and concentration: AOX3, grossly intact for the purposes of this session Judgment and insight: poor Assessment/Plan: Continue with current diagnosis. Patient continues to meet criteria for inpatient psychiatric admission for symptom stabilization and safety. Invega Sustenna 156 mg IM given 08/02/23. Start Invega 3 mg po daily for psychosis. Continue Seroquel 100 mg QHS for augmentation/sleep. Monitor for medication compliance and for any psychotropic medication side effects. Will continue to monitor ongoing response to treatment. Encouraged participation in milieu.
[2023-08-04] MEDS: PALIPERIDONE 3 MG TAB.ER.24 PO SCH (18:08)
--- NOTE | 2023-08-05 21:43 | P.PN ---
Progress Note - Text Progress Note Date: 08/05/23 Interval history: Patient was seen walking the hallways and continues to smile to himself and appears internally preoccupied. He appears to be a poor historian due to poor insight. There continues to be a delay in his responses, thought blocking which is minimally improving with the addition of Invega 3 mg daily, however he denies hearing voices when asked directly about AVH again today. He denies suicidal or homicidal ideation today. Patient denies any side effects from the medications and has been compliant with meds. Mental status exam: General Appearance: Patient appears to be stated age, unshaven, poor dentition. Behavior: No agitated behavior. Calm, passively engaged, smiling and responding to internal stimuli. Speech: Patient's speech is fluent, low soft tone and non-pressured. Mood/Affect: Mood is good, affect is broad smiles. Suicidality/Homicidality: Patient denies having any suicidal or homicidal ideation intent or plan. Perceptions: Patient denies any auditory or visual hallucinations, however appears to be responding to internal stimuli with thought blocking. Though content/process: He does not express overt fixed delusional thought content on my assessment, and thought process is concrete with thought blocking. Memory and concentration: AOX3, grossly intact for the purposes of this session Judgment and insight: poor Assessment/Plan: Continue with current diagnosis. Patient continues to meet criteria for inpatient psychiatric admission for symptom stabilization and safety. Invega Sustenna 156 mg IM given 08/02/23. Continue Invega 3 mg po daily for psychosis. Increase Seroquel 100 mg QHS to 100 mg BID starting tomorrow for au gmentation/psychosis. Monitor for medication compliance and for any psychotropic medication side effects. Will continue to monitor ongoing response to treatment. Encouraged participation in milieu.
[2023-08-06] MEDS: QUEtiapine 100 MG TAB PO SCH (09:05)
--- NOTE | 2023-08-06 10:23 | P.PN ---
Progress Note - Text Progress Note Date: 08/06/23 Patient was seen resting in bed this morning. He is calm and cooperates with assessment. His thought process has improved today after taking the first morning dose of Seroquel 100 mg this morning. Initially, there no or very minimal delay in his responses. He reports good mood, sleep and appetite. He denies suicidal or homicidal ideation without hesitation. However when asked if he is hearing voices, he hesitates in his response looks over to his left as if he is attending to internal stimuli, and then after several seconds denies hearing voices. When asked if he has ever heard voices he again denies ever hearing voices. He appears to be a poor historian due to poor insight in his psychosis. Patient denies any side effects from the medications and has been compliant with meds. Mental status exam: General Appearance: Patient appears to be stated age, unshaven, poor dentition. Behavior: No agitated behavior. Calm, passively engaged, smiling and responding to internal stimuli but much less today. Speech: Patient's speech is fluent, low soft tone and non-pressured. Mood/Affect: Mood is good, affect is broad smiles. Suicidality/Homicidality: Patient denies having any suicidal or homicidal ideation intent or plan. Perceptions: Patient denies any auditory or visual hallucinations, however appears to be responding to internal stimuli but much less today. Minimal thought blocking observed. Though content/process: He does not express overt fixed delusional thought content on my assessment, and thought process is concrete. Memory and concentration: AOX3, grossly intact for the purposes of this session Judgment and insight: poor Assessment/Plan: Continue with current diagnosis. Patient continues to meet criteria for inpatient psychiatric admission for symptom stabilization and safety. Invega Sustenna 156 mg IM given 08/02/23. Continue Invega 3 mg po daily for psychosis. Seroquel increased to 100 mg BID starting this morning for augmentation/psychosis. Monitor response and increase as tolerated. Monitor for medication compliance and for any psychotropic medication side effects. Will continue to monitor ongoing response to treatment. Encouraged participation in milieu.
--- NOTE | 2023-08-07 15:00 | P.PN ---
Progress Note - Text Progress Note Date: 08/07/23 Follow-up Mediation Review Chief Complaint: I am doing fine. Subjective: The patient noted that he has been doing fine. He pauses before responding. Complaints since yesterday: The patient had no new complaints. The patient has been attending the groups. The participation is limited. The interaction with staff and peers is limited. The patient is compliant with treatment recommendations. Leading questions: The patient denied Depression and Anxiety. Denied SI or HI. Denied symptoms consistent with psychosis. He smiles inappropriately before responding. No talking to self or exhibiting hallucinatory behavior. Sleep and Appetite: Fine. Change in family/ living/job/financial/daily routine: No change. Change in medical condition: No change. Change in medications: No change. Side effects from Medications: None. Objective- MSE: Alert and attentive. Orientation times three. Dressed and Groomed: Appropriately. Pleasant and cooperative. Psychomotor Activity: Normal. Speech: Normal in tone, quality, and quantity. Mood: Good. Affect: Pleasant. SI or HI: None. Perceptual disturbance: None. Thought Content: No paranoia or other delusional thinking noted. Thought Process: Normal. Cognition: Intact. Judgment and Insight: Fair. AIMS: Normal. Labs: No new labs. Diagnosis: Plan and Recommendations: Continue current Medications. Monitor MS and side effects of medications and adjust medications accordingly. Provide supportive psychotherapy. The patient provided psychoeducation. The patient to attend clements activities. Medication Consent with explanation of risk/benefits and side effects: Explained and obtained.
--- NOTE | 2023-08-08 16:01 | P.PN ---
Progress Note - Text Progress Note Date: 08/08/23 Chief Complaint: I am doing fine. Subjective: The patient noted that he has been feeling good. Complaints since yesterday: The patient was in good spirits today. He responded to questions spontaneously. He was asked to take his oral medications, the patient agreed. No new complaints were brought up by the patient. The patient has been attending the groups. The participation is limited. The interaction with staff and peers is limited. The patient is compliant with treatment recommendations. Leading questions: The patient denied Depression and Anxiety. Denied SI or HI. Denied symptoms consistent with psychosis. Sleep and Appetite: Fine. Change in family/ living/job/financial/daily routine: No change. Change in medical condition: No change. Change in medications: No change. Side effects from Medications: None. Objective- MSE: Alert and attentive. Orientation times three. Dressed and Groomed: Appropriately. Pleasant and cooperative. Psychomotor Activity: Normal. Speech: Normal in tone, quality, and quantity. Mood: Good. Affect: Pleasant. SI or HI: None. Perceptual disturbance: None. Thought Content: No paranoia or other delusional thinking noted. Thought Process: Normal. Cognition: Intact. Judgment and Insight: Fair. AIMS: Normal. Labs: No new labs. Diagnosis: Plan and Recommendations: Continue current Medications. Monitor MS and side effects of medications and adjust medications accordingly. Provide supportive psychotherapy. The patient provided psychoeducation. The patient to attend clements activities. Medication Consent with explanation of risk/benefits and side effects: Explained and obtained.
[2023-08-09 07:19] VITALS: RESP 14
--- NOTE | 2023-08-09 12:53 | P.PN ---
Progress Note - Text Progress Note Date: 08/09/23 Chief Complaint: I am doing fine. Complaints since yesterday: The patient continues to be in good spirits. He responded to questions spontaneously. The patient is compliant with medications and attending clements activities. The patient has been attending the groups. The participation is limited. The interaction with staff and peers is limited. The patient is compliant with treatment recommendations. Leading questions: The patient denied Depression and Anxiety. Denied SI or HI. Denied symptoms consistent with psychosis. Sleep and Appetite: Fine. Change in family/ living/job/financial/daily routine: No change. Change in medical condition: No change. Change in medications: No change. Side effects from Medications: None. Objective- MSE: Alert and attentive. Orientation times three. Dressed and Groomed: Appropriately. Pleasant and cooperative. Psychomotor Activity: Normal. Speech: Normal in tone, quality, and quantity. Mood: Good. Affect: Pleasant. SI or HI: None. Perceptual disturbance: None. Thought Content: No paranoia or other delusional thinking noted. Thought Process: Normal. Cognition: Intact. Judgment and Insight: Fair. AIMS: Normal. Labs: No new labs. Diagnosis: Plan and Recommendations: Continue current Medications. Monitor MS and side effects of medications and adjust medications accordingly. Provide supportive psychotherapy. The patient provided psychoeducation. The patient to attend clements activities. Medication Consent with explanation of risk/benefits and side effects: Explained and obtained.
[2023-08-10 07:11] VITALS: TEMP 98.2
[2023-08-10 09:42] VITALS: BP 128/66; PULSE 109
--- NOTE | 2023-08-10 16:26 | P.DS ---
Providers Date of admission: 07/29/23 09:30 Expected date of discharge: 08/10/23 Attending physician: Kushal Monzon MD Consults: 07/29/23 09:48 Consult Physician Routine Consulting Provider: Kofi Sun Consult Reason/Comments: H & P w/medical management Do you want consulting provider notified?: Yes Primary care physician: Kofi Sun - Discharge Diagnosis(es) (1) Undifferentiated schizophrenia Status: Acute Priority: High (2) Mild cognitive impairment Status: Acute Priority: Medium Hospital Course: Discharge Summary HPI: this is a psychiatric assessment on Lyndon Erickson who is a 38-year-old male with long history of mental illness Patient is a very poor historian and states that he is here because he wants to have his medication adjusted Patient response after long delays and is unable to comprehend intermittently Patient had to be repeated the question several times but would not give responses that were unrelated Patient states that he knows his family He states that there is nothing else wrong Patient otherwise continues to stare and mumbles some answers that were unintelligible Staff is reported that the patient has been hospitalized here on several occasions and the that his mom is his guardian The patient also was very paranoid about going to his own apartment and that they had actually tried to have a cross roller bless the house so that he could get back in there. Patient has been compliant with his medications Following is a self from the assessment done in the ER before hospitalization since there is no other collateral information available '' :38-year-old male presents emergency department chief complaint of needing psychiatric help. Patient states that he needs his medications. He is followed by [facility]. Patient states that he has been hearing voices he has a history of schizophrenia he has been admitted several times to psych patient denies any current illicit drug use or alcohol abuse he denies any physical complaints. Patient denies being suicidal currently. Patient states he is hearing voices.'' Hospital Course: After admission, the patient was involved in pharmacotherapy, clements milieu, and individual psychodynamic psychotherapy. The patient was started on his home medications. Initially he was given oral Invega 3 mg daily. He was given Invega Sustenna on 08/02/23. The dose was titrated to obtain the desire effects. The patient tolerated medications well without any side effects. The patient was also involved in clements activities. The patient attended the groups and participated well. The patient interacted with peers and staff well. The patient slowly started showing improvement. The hospital course was uneventful. The patient symptoms of depression, suicidal and homicidal ideations abated. The psychosis improved. The patient was stable to be discharged to out-patient care. The patient does not have any guns or weapons in possession at home. MSE: reveals a very thin build sure station male who was dressed in the hospital gown Patient has a scraggly couch and appears unkept Affect remains flat Behavior: Patient tries to cooperate and remains relax laying down in the bed Speech was clear but MT where patient seems to mumbles some answers and at times seems to have much difficulty with comprehension Thought processes are concrete and disorganized Patient also exhibits some perseveration Patient was asked several times about any auditory or visual hallucinations but did not respond Patient's formal and operational judgment and insight are impaired Diagnosis: Schizophrenia chronic undifferentiated type Mild Cognitive Impairment Plan: The patient to be discharged today. The patient has attained good improvement since admission. He is stable to be followed as an outpatient. The patient is not suicidal or Homicidal. He does not pose any harm to self or others. The patient remains at a greater risk of self-harm or harm to others than general population on a chronic basis due to psychiatric illness and substance abuse. The patient will continue taking following medication post discharge. The importance of medication compliance and maintaining regular appointments at psychiatric out-pt and PCP clinic was explained and encouraged.. The understood and agreed with the recommendations. soaker soda worker to arrange for and conduct family meeting to ensure safety upon discharge and answer any questions. The social service director to arrange for patients follow-up appointments at [facility] for psychiatric care along with follow-up with PCP. The patient provided psychoeducation. Advised to call 911 or go to nearest ED or call this hospital in case of acute worsening of symptomatology, severe side effects or having suicidal, homicidal thoughts and feeling unsafe at home. Patient Condition at Discharge: Stable Plan - Discharge Summary New Discharge Prescriptions: New QUEtiapine [SEROquel] 100 mg PO BID 15 Days #30 tab Sertraline [Zoloft] 50 mg PO DAILY 15 Days #15 tab Continue Sertraline [Zoloft] 100 mg PO DIRECTED Paliperidone IM [Invega Sustenna] 156 mg IM Q28D 1 Days #1 ml Discontinued QUEtiapine [SEROquel] 50 mg PO DIRECTED Discharge Medication List Sertraline [Zoloft] 100 mg PO DIRECTED 07/29/23 [History] Paliperidone IM [Invega Sustenna] 156 mg IM Q28D 1 Days #1 ml 08/10/23 [Rx] QUEtiapine [SEROquel] 100 mg PO BID 15 Days #30 tab 08/10/23 [Rx] Sertraline [Zoloft] 50 mg PO DAILY 15 Days #15 tab 08/10/23 [Rx] Follow up Appointment(s)/Referral(s): Melva Malave [Other] - 08/14/23 11:00 am ([facility]) Kofi Sun MD [Primary Care Provider] - 1-2 days [facility] [NON-STAFF] - 08/15/23 9:30 am (Dr Ruff) Patient Instructions/Handouts: How to Stop Smoking (ED), Schizophrenia (DC) Activity/Diet/Wound Care/Special Instructions: Avoid the use of street drugs and alcohol. Take all medications as prescribed. When you are in need of refills on your medications, please contact your medical provider and/or outpatient psychiatrist/provider to have this done. Please go to your scheduled outpatient appointment for aftercare treatment. If symptoms return or become worse, call the crisis line at and/or go to the nearest emergency room for evaluation. National Suicide Hotline 988 Discharge Disposition: HOME SELF-CARE
== END 2023-08-10 15:30 | disposition home or self-care (01) | DRG 750 ==
LOC: EC 06:00 → 3MHU 09:30
PROVIDERS: ADMIT Psychiatry & Neurology Psychiatry; ATTEND Psychiatry & Neurology Psychiatry
DX: F20.3 Undifferentiated schizophrenia (principal); F20.5 Residual schizophrenia; F17.200 Nicotine dependence, unspecified, uncomplicated; K21.9 Gastro-esophageal reflux disease without esophagitis; F79 Unspecified intellectual disabilities; G31.84 Mild cognitive impairment of uncertain or unknown etiology; K21.00 Gastro-esophageal reflux disease with esophagitis, without bleeding; Z28.310 Unvaccinated for COVID-19; Z28.21 Immunization not carried out because of patient refusal; Z11.52 Encounter for screening for COVID-19; Z79.899 Other long term (current) drug therapy; Z91.199 Patient's noncompliance with other medical treatment and regimen due to unspecified reason
CPT/HCPCS: 80053; 80061; 80306; 81003; 82248; 84443; 85025; 87635; 99285

== ENCOUNTER 2023-10-27 06:43 | Emergency (ER) | payer OTHER | END 2023-10-27 08:05 | disposition home or self-care (01) | LOC: EC 06:43 | CPT/HCPCS: 82075; 99283 ==

== ENCOUNTER 2023-10-28 01:30 | Inpatient (IN) | payer MEDICAID, OTHER ==
[~2023-10-28 01:30] MED LIST changes: -LACTATED RINGERS 1,000 ML IV SCH; +LORazepam 1 MG TAB ONE
[2023-10-28] MEDS ORDERED: NICOTINE 14MG/24HR PATCH TRANSDERM ONE (07:50)
[2023-10-28] MEDS ORDERED: QUEtiapine 100 MG TAB ONE ×2 (07:51→19:53)
[2023-10-28] MEDS ORDERED: SERTRALINE 50 MG TAB ONE (07:51)
[2023-10-29] MEDS ORDERED: QUEtiapine 50 MG TAB ONE (08:04)
[2023-10-29] MEDS ORDERED: QUEtiapine 100 MG TAB ONE (08:05)
[2023-10-29] MEDS ORDERED: SERTRALINE 25 MG TAB ONE (08:06)
[2023-10-29] MEDS ORDERED: NICOTINE 14MG/24HR PATCH TRANSDERM ONE (08:19)
[2023-10-29] MEDS ORDERED: ACETAMINOPHEN TAB 325 MG TAB ONE (21:05)
[2023-10-30] MEDS ORDERED: SERTRALINE 25 MG TAB ONE (08:23)
[2023-10-31] MEDS ORDERED: SERTRALINE 50 MG TAB ONE (09:52)
[2023-11-01] MEDS ORDERED: SERTRALINE 50 MG TAB ONE (08:20)
[2023-11-01] MEDS ORDERED: BENZTROPINE MESYLATE 0.5 MG TAB ONE (20:04)
[2023-11-01] MEDS ORDERED: ACETAMINOPHEN TAB 325 MG TAB ONE (20:49)
[2023-11-02] MEDS ORDERED: SERTRALINE 50 MG TAB ONE (08:28)
[2023-11-02] MEDS ORDERED: ACETAMINOPHEN TAB 325 MG TAB ONE (21:50)
[2023-11-02] MEDS ORDERED: BENZTROPINE MESYLATE 0.5 MG TAB ONE (21:50)
[2023-11-03] MEDS ORDERED: SERTRALINE 50 MG TAB ONE (08:05)
[2023-11-03] MEDS ORDERED: ACETAMINOPHEN TAB 325 MG TAB ONE (21:41)
[2023-11-04] MEDS ORDERED: MAG HYDROX/AL HYDROX/SIMETH 30 ML CUP PO PRN
[2023-11-04] MEDS ORDERED: ACETAMINOPHEN TAB 325 MG TAB PO PRN
[2023-11-04] MEDS ORDERED: haloperidoL 5 MG TAB PO PRN
[2023-11-04] MEDS ORDERED: LORazepam 2 MG/ML INJ IM PRN
[2023-11-04] MEDS ORDERED: HALOPERIDOL LACTATE 5 MG/ML 1 ML VIAL IM PRN
[2023-11-04] MEDS ORDERED: LORazepam 1 MG TAB PO PRN
[2023-11-04] MEDS ORDERED: SERTRALINE 50 MG TAB ONE (08:27)
[2023-11-04] MEDS ORDERED: MAGNESIUM HYDROXIDE 2,400 MG/30 ML CUP PO PRN (09:00)
--- NOTE | 2023-11-04 09:16 | P.PN ---
Progress Note - Text Progress Note Date: 11/04/23 The patient was seen chart was reviewed and case discussed with nursing staff Patient reports that he is feeling better He states that he is not experiencing any auditory or visual hallucinations Patient repeats the question and seems to also have difficulty with long open- ended questions or with his hearing Patient otherwise denies any issues or concerns Mental Status Exam: General Appearance: Patient appears to be short statured thin, disheveled appearance, stated age is cooperative. Patient appears to have mildly improving hygiene and grooming. Behavior: Patient is wandering the unit, and more cooperative, improving mildly Speech: Patient's speech is fluent and nonpressured. Speech is impoverished Mood/Affect: Patient reports their mood is "good", affect is congruent and improving Suicidality/Homicidality: Patient denies having any homicidal ideation intent or plan. Denies any suicidal ideations intent or plan Perceptions: Patient denies any visual hallucinations and denies any auditory hallucinations Though content/process: more goal oriented. [place] and simple Memory and concentration: Alert and oriented 3, fair attention span. Judgment and insight: Chronically poor, improving mildly IMPRESSIONS: Schizophrenia chronic undifferentiated type PLAN: -Patient is admitted under involuntary status and now court order to MHU for stabilization of psychiatric symptoms and safety. -Medications : Active Medications Generic Name Dose Route Start Last Admin Trade Name Freq PRN Reason Stop Dose Admin Acetaminophen 650 mg 11/04/23 00:00 Acetaminophen Tab 325 Mg Tab PO Q4H PRN Pain Al Hydroxide/Mg Hydroxide 30 ml 11/04/23 00:00 Mag Hydrox/Al Hydrox/Simeth 30 Ml Cup PO Q4HR PRN GI Upset Benztropine Mesylate 0.5 mg 11/04/23 21:00 Benztropine Mesylate 0.5 Mg Tab PO HS PRIMO Fluphenazine HCl 2 mg 11/04/23 09:00 Fluphenazine 1 Mg Tab PO DAILY PRIMO Fluphenazine HCl 3 mg 11/04/23 21:00 Fluphenazine 1 Mg Tab PO HS PRIMO Haloperidol 5 mg 11/04/23 00:00 Haloperidol 5 Mg Tab PO Q6H PRN AGITATION Haloperidol Lactate 5 mg 11/04/23 00:00 Haloperidol Lactate 5 Mg/Ml 1 Ml Vial IM Q6HR PRN Agitation or Acute Psychosis Lorazepam 1 mg 11/04/23 00:00 Lorazepam 1 Mg Tab PO Q6H PRN Anxiety Lorazepam 2 mg 11/04/23 00:00 Lorazepam 2 Mg/Ml Inj IM Q6H PRN Agitation Magnesium Hydroxide 2,400 mg 11/04/23 09:00 Magnesium Hydroxide 2,400 Mg/30 Ml Cup PO DAILY PRN Constipation Nicotine Polacrilex 2 mg 11/04/23 00:00 Nicotine Gum (Polacrilex) 2 Mg Gum BUCCAL Q4HR PRN Nicotine Cravings Sertraline HCl 50 mg 11/04/23 09:00 Sertraline 50 Mg Tab PO DAILY PRIMO Trazodone HCl 50 mg 11/04/23 21:00 Trazodone Hcl 50 Mg Tab PO HS PRN Insomnia -NRT - nicotine patch -SW on board for discharge planning. Encourage patient to participate in groups to work on coping skills. Steve Cervantes MD
[2023-11-04] MEDS: SERTRALINE 50 MG TAB PO SCH (10:23)
[2023-11-04] MEDS ORDERED: traZODone HCL 50 MG TAB PO PRN (21:00)
[2023-11-04] MEDS: BENZTROPINE MESYLATE 0.5 MG TAB PO SCH (21:13)
[2023-11-05 07:14] VITALS: RESP 14
[2023-11-05] MEDS ORDERED: SERTRALINE 50 MG TAB ONE (07:53)
--- NOTE | 2023-11-05 11:57 | P.PN ---
Progress Note - Text Progress Note Date: 11/05/23 Interval History: Patient was seen in group, and was directable and agreeable to speak with scenario writer in the office. He states that he is doing really good today. He claims that the voices are completely gone. He endorses good sleep, and a good appetite. Spoke with patient about transitioning onto a REDDING today, patient agreeable. At this time patient denies any suicidal or homicidal ideations, intent or plan. Patient denies any auditory, visual hallucinations and denies any paranoia or delusions. Patient denies any side effects from the medications and has been compliant with meds. Mental Status Exam: General Appearance: [Patient appears to be stated age is alert, directable, and cooperative. Dressed casually, improved grooming and hygiene.] Behavior: [Patient is calmly seated without any agitated behavior.] Speech: Patient's speech is fluent and nonpressured. Mood/Affect: Mood is good affect is congruent and constricted. improving Suicidality/Homicidality: Patient denies having any suicidal or homicidal ideation intent or plan. Perceptions: Patient denies any visual hallucinations [and denies any auditory hallucinations] Though content/process: [There is no evidence of any delusional thought content and thought process is linear and goal-directed.] Memory and concentration: AOX3, grossly intact for the purposes of this session Judgment and insight: Improving mildly Assessment schizophrenia Plan: -Patient continues to meet criteria for inpatient psychiatric admission for symptom stabilization and safety. Patient is on an active order. -Medications: Prolixin PO 2mg po daily + 3mg qhs, titrate down. Zoloft 50mg po daily, cogentin 0.5mg qhs, trazodone 50mg po qhs prn. Add Prolixin D 25mg IM q 21 days starting today, 11/04, next dose 11/25 -When necessary Ativan and Haldol for agitation/aggression. -NRT - [nicotine patch] -SW on board for discharge planning. Encouraged the patient to participate in milieu. Likely D/C tomorrow to [facility], if patient continues to improve
[2023-11-05] MEDS: fluPHENAZine DECANOATE 25 MG/ML 5ML MDV IM SCH (12:31)
[2023-11-05] MEDS: NICOTINE GUM (POLACRILEX) 2 MG GUM BUCCAL PRN (14:30)
[2023-11-06 07:04] VITALS: BP 87/50; PULSE 51; TEMP 97.4
--- NOTE | 2023-11-06 10:26 | P.DS ---
Providers Date of admission: 10/28/23 01:30 Expected date of discharge: 11/06/23 Attending physician: Lester Martino MD Consults: 11/03/23 16:24 Consult Physician Routine Consulting Provider: Kofi Sun Consult Reason/Comments: medical management Do you want consulting provider notified?: Already Contacted Primary care physician: Stated None - Discharge Diagnosis(es) (1) Schizophrenia Current Visit: No Status: Acute Priority: High Hospital Course: Admission HPI: Admission note was completed by Dr Arguello "Per chart, pt has had recent med changes from Invega sustenna/seroquel to Abilify/Abilify [place]. Came to ER for thought blocking, AH r/s agitation, bizarre behavior. Reports AH that don't bother him and denies SI/HI/VH. Doen not want REDDING because it causes pain." Hospital course: Upon admission to the unit patient was admitted to the mental health unit on a active treatment order for mental health. Patient got along well with other patients on the unit and followed unit protocol. Patient was initially bizarre, responding to internal stimuli and endorsing auditory hallucinations however with time and treatment he eventually was compliant with the medications and denied any side effects throughout hospital course. Patient was started on Prolixin increased to a dose of 5 mg total p.o a day, he was given Prolixin D 25 mg IM on 11/04 to help ensure compliance. Patient was also on Cogentin 0.5 mg nightly for EPS prophylaxis and trazodone 50 mg nightly as needed for sleep, Zoloft 50 mg daily for mood/anxiety. Patient spoke of her stressors and engaged in therapy both group and individual. Patient was also seen by medical team for history and physical exam. Throughout the course of the hospitalization patient gradually improved with regards to mood, anxiety, hallucinations, psychosis, sleep and returned back to their baseline level of functioning. On the day of discharge patient denied any suicidal or homicidal ideations intent or plan denied any auditory or visual hallucinations. Patient endorsed wanting to live for his health and family. The patient denied any access to guns or weapons. Patient denied any paranoia and did not endorse any delusions. Patient does not have a significant history of substance abuse and was counseled on abstaining from all substances including alcohol and marijuana. Patient was also counseled on the medications and need for regular compliance and was encouraged to follow-up with their outpatient appointment for mental health and also for primary care. Prior to discharge a family meeting will be arranged by rn social work to answer any questions and ensure safety upon discharge. Patient will be discharged today back to [facility]. Guardians made aware of the discharge. Mental status exam: General Appearance: Patient appears to be short in stature, poor dentition, stated age is alert, pleasant, and cooperative. Patient is in no acute distress and has improved hygiene and grooming Behavior: Patient is calmly seated without any agitated behavior. Speech: Patient's speech is fluent and nonpressured. Mood/Affect: Patient reports their mood is "good", affect is congruent and euthymic. Suicidality/Homicidality: Patient denies having any suicidal or homicidal ideation intent or plan. Perceptions: Patient denies any auditory or visual hallucinations. Though content/process: There is no evidence of any delusional thought content and thought process is linear and goal-directed. Memory and concentration: AOX3, grossly intact for the purposes of this session. Can spell "WORLD" backwards correctly. Judgment and insight: Chronically limited, improved with guarded prognosis Impression: schizophrenia Plan: -Continue with discharge today as patient has improved and stabilized psychiatrically and is not currently an imminent threat to himself and/or others. Patient will remain at chronically elevated risk for harm to self and/or others due to his impulsivity and compliance. -Continue medications: Continue with Prolixin p.o. 1 mg twice daily for 3 more days then discontinued. Patient was given Prolixin D 25 milligrams IM on 11/04, next dose will be doing q. 21 days on 11/25. Zoloft 50 mg daily for mood/anxiety, Cogentin 0.5 mg nightly for EPS prophylaxis, trazodone 50 mg nightly as needed for insomnia. -Patient was counseled on the need for medication compliance and appropriate follow-up at mental health and also primary care for medical issues. Patient verbalized understanding and agreed. -Social work to arrange for and conduct family meeting to ensure safety upon discharge and answer any questions/concerns. Social work also to arrange for patients follow up appointments with [facility] for psychiatric care along with follow up with primary care provider. -Patient counseled on abstaining from recreational drugs and marijuana and alcohol. Was informed/educated on the adverse effects on their physical and mental health. Patient verbally agreed and understood. -Patient was instructed to return to the hospital or seek immediate medical care if their psychiatric or medical symptoms do worsen or reoccur. Allergies Allergy/AdvReac Type Severity Reaction Status Date / Time adhesive AdvReac Itching Verified 07/29/23 11:42 Vital Signs Temp 97.4 F L 11/06/23 06:25 Pulse 51 L 11/06/23 06:25 Resp 14 11/06/23 06:25 BP 87/50 11/06/23 06:25 Pulse Ox 98 11/06/23 06:25 FiO2 Vital Signs Temp 97.4 F L 11/06/23 06:25 Pulse 51 L 11/06/23 06:25 Resp 14 11/06/23 06:25 BP 87/50 11/06/23 06:25 Pulse Ox 98 11/06/23 06:25 FiO2 Patient Condition at Discharge: Stable Plan - Discharge Summary New Discharge Prescriptions: New Nicotine Gum (Polacrilex) [Nicorette] 2 mg BUCCAL Q4HR PRN 30 Days #180 pieceofgum PRN Reason: Nicotine Cravings fluPHENAZine [Prolixin] 1 mg PO BID 3 Days #6 tab fluPHENAZine decanoate [Prolixin Decanoate] 25 mg IM Q21D #1 ml Benztropine Mesylate [Cogentin] 0.5 mg PO HS 30 Days #30 tab Sertraline [Zoloft] 50 mg PO DAILY 30 Days #30 tab Discontinued QUEtiapine [SEROquel] 100 mg PO BID 15 Days #30 tab Sertraline [Zoloft] 100 mg PO DIRECTED Sertraline [Zoloft] 50 mg PO DAILY 15 Days #15 tab Paliperidone IM [Invega Sustenna] 156 mg IM Q28D 1 Days #1 ml Discharge Medication List Benztropine Mesylate [Cogentin] 0.5 mg PO HS 30 Days #30 tab 11/06/23 [Rx] Nicotine Gum (Polacrilex) [Nicorette] 2 mg BUCCAL Q4HR PRN 30 Days #180 pieceofgum 11/06/23 [Rx] Sertraline [Zoloft] 50 mg PO DAILY 30 Days #30 tab 11/06/23 [Rx] fluPHENAZine [Prolixin] 1 mg PO BID 3 Days #6 tab 11/06/23 [Rx] fluPHENAZine decanoate [Prolixin Decanoate] 25 mg IM Q21D #1 ml 11/06/23 [Rx] Follow up Appointment(s)/Referral(s): [facility] [Outside] - 11/09/23 2:00 pm (11/09/2023 2:00PM - 3:00PM ELYSE CASTILLO 11/16/2023 11:00AM - 11:30AM SHADI GALLEGOS) Ward Aguiar NPC [Nurse Practitioner] - 1 Week Patient Instructions/Handouts: How to Stop Smoking (DC), Schizophrenia (DC) Activity/Diet/Wound Care/Special Instructions: [facility] Discharge Info Avoid the use of street drugs and alcohol. Take all medications as prescribed. When you are in need of refills on your medications, please contact your out patient medical provider and/or outpatient psychiatrist. Please go to your scheduled outpatient appointments for aftercare treatment. If symptoms return or become worse, call the crisis line at or and/or visit the nearest emergency room for assistance. National Suicide and Crisis Lifeline - call or text 640. Discharge Disposition: OTHER INSTITUTION NOT DEFINED
--- NOTE | 2023-12-07 14:37 | PN ---
PROGRESS NOTE The patient is in 320, bed 1. SUBJECTIVE: Lyndon was seen, the chart was reviewed, and the case was discussed with the nursing staff. The patient seemed to have much difficulty with hearing and repeating the questions each time asked. The patient reports that he has been here multiple times. He said that he does not know as to why he is here. He said that he has history of schizophrenia, and that he has some trouble taking his meds. He states that he currently lives alone and he goes to the [facility]. The patient states that he is feeling that the medications do seem to be helping. MENTAL STATUS EXAMINATION: Reveals a young short stature male, who currently appears in no acute physical distress. The patient is in hospital gown. The patient has his top upper teeth missing. The patient concrete with possibly dull IQ. Affect remains flat. The patient repeats the questions several times and seemed to have some difficulty understanding or hearing the question. judgement and insight remain partial. The patient denies any suicidal or homicidal ideations. Overall, he remains pleasant and redirectable. DIAGNOSTIC IMPRESSION: Schizophrenia, chronic, undifferentiated type. PLAN: The patient will continue on his current medications as prescribed. No side effects from his current medications noted. Continue supportive care and current medications. MMODL / IJN: [id number] /
== END 2023-11-06 13:02 | disposition home or self-care (01) | DRG 750 ==
LOC: 3MHU 01:30
PROVIDERS: ADMIT Psychiatry & Neurology Psychiatry; ATTEND Psychiatry & Neurology Psychiatry
DX: F20.5 Residual schizophrenia (principal); F41.9 Anxiety disorder, unspecified; Z79.899 Other long term (current) drug therapy; F79 Unspecified intellectual disabilities; Z71.51 Drug abuse counseling and surveillance of drug abuser; R45.1 Restlessness and agitation; F19.10 Other psychoactive substance abuse, uncomplicated; F32.A Depression, unspecified
CPT/HCPCS: 51798; 99285

== ENCOUNTER 2023-11-08 18:53 | Emergency (ER) | payer OTHER ==
[2023-11-08 19:13] VITALS: RESP 18
--- NOTE | 2023-11-08 21:22 | ED ---
Psych HPI <Chelsey Alamo - Last Filed: 11/09/23 00:43> - General Source: patient, RN notes reviewed Mode of arrival: ambulatory <Marci Romano - Last Filed: 11/09/23 17:09> - General Chief Complaint: Psychiatric Symptoms Stated Complaint: mental health Time Seen by Provider: 11/08/23 19:05 - History of Present Illness Initial Comments: 38-year-old male with history of schizophrenia presents emergency department companied by long term caregiver chief complaint of auditory and visual hallucinations. Currently, patient is denies symptoms of SI, HI. It is discussed by long term caregiver that patient has been responding to internal stimuli over the past few days and also had a shaking episode this evening. Patient has been taking his medications as prescribed. Denies other acute complaints at this time. (Marci Romano) - Related Data Previous Rx's Medication Instructions Recorded Benztropine Mesylate [Cogentin] 0.5 mg PO HS 30 Days #30 tab 11/06/23 Nicotine Gum (Polacrilex) 2 mg BUCCAL Q4HR PRN 30 Days #180 11/06/23 [Nicorette] pieceofgum Sertraline [Zoloft] 50 mg PO DAILY 30 Days #30 tab 11/06/23 fluPHENAZine [Prolixin] 1 mg PO BID 3 Days #6 tab 11/06/23 fluPHENAZine decanoate [Prolixin 25 mg IM Q21D #1 ml 11/06/23 Decanoate] Allergies Allergy/AdvReac Type Severity Reaction Status Date / Time adhesive AdvReac Itching Verified 11/08/23 19:13 Review of Systems ROS Other: All systems not noted in ROS Statement are negative. <Chelsey Alamo - Last Filed: 11/09/23 00:43> ROS Other: All systems not noted in ROS Statement are negative. <Marci Romano - Last Filed: 11/09/23 17:09> ROS Statement: Those systems with pertinent positive or pertinent negative responses have been documented in the HPI. Past Medical History Past Medical History: GERD/Reflux Additional Past Medical History / Comment(s): anemia, growth delay History of Any Multi-Drug Resistant Organisms: None Reported Past Surgical History: No Surgical Hx Reported Past Anesthesia/Blood Transfusion Reactions: No Reported Reaction Past Psychological History: Anxiety, Depression, Schizophrenia Smoking Status: Current every day smoker Past Alcohol Use History: None Reported Past Drug Use History: None Reported - Past Family History Father Additional Family Medical History / Comment(s): Stomach surgery of unknown reason. <Marci Romano - Last Filed: 11/09/23 17:09> General Exam Limitations: no limitations General appearance: alert, in no apparent distress Head exam: Present: atraumatic, normocephalic, normal inspection Eye exam: Present: normal appearance, PERRL, EOMI. Absent: scleral icterus, conjunctival injection, periorbital swelling ENT exam: Present: normal exam, mucous membranes moist Respiratory exam: Present: normal lung sounds bilaterally. Absent: respiratory distress, wheezes, rales, rhonchi, stridor Cardiovascular Exam: Present: regular rate, normal rhythm, normal heart sounds. Absent: systolic murmur, diastolic murmur, rubs, gallop, clicks GI/Abdominal exam: Present: soft, normal bowel sounds. Absent: distended, tenderness, guarding, rebound, rigid Extremities exam: Present: normal inspection, full ROM, normal capillary refill. Absent: tenderness, pedal edema, joint swelling, calf tenderness Back exam: Present: normal inspection Neurological exam: Present: alert, oriented X3, CN II-XII intact Psychiatric exam: Present: normal mood, flat affect Skin exam: Present: warm, dry, intact, normal color. Absent: rash <RosalinaMarci - Last Filed: 11/09/23 17:09> Course Vital Signs 11/08/23 11/09/23 19:10 00:55 Temperature 98 F 98.0 F Pulse Rate 78 80 Respiratory 18 18 Rate Blood Pressure 108/68 110/70 O2 Sat by Pulse 98 100 Oximetry Medical Decision Making <RosalinaMarci - Last Filed: 11/09/23 17:09> - Medical Decision Making Was pt. sent in by a medical professional or institution (, PA, CONTENT STRATEGY LEAD, urgent care, hospital, or fpc...) When possible be specific @ -No Did you speak to anyone other than the patient for history (EMS, parent, family, police, friend...)? What history was obtained from this source @ -No Did you review nursing and triage notes (agree or disagree)? Why? @ -I reviewed and agree with nursing and triage notes Were old charts reviewed (outside hosp., previous admission, EMS record, old EKG, old radiological studies, urgent care reports/EKG's, fpc records)? Report findings @ -No old charts were reviewed Differential Diagnosis (chest pain, altered mental status, abdominal pain women, abdominal pain men, vaginal bleeding, weakness, fever, dyspnea, syncope, headache, dizziness, GI bleed, back pain, seizure, CVA, palpatations, mental health, musculoskeletal)? @ -Differential Mental Health Depression, anxiety, bipolar, psychosis, schizophrenia, borderline personality, situational depression, adjustment disorder, behavioral disorder, brain tumor, malingering, substance abuse, encephalopathy, medication reaction, dementia, hypothyroidism, degenerative neurologic disorder, lupus.... This is not meant to be all-inclusive list EKG interpreted by me (3pts min.). @ -None X-rays interpreted by me (1pt min.). @ -None done CT interpreted by me (1pt min.). @ -None done U/S interpreted by me (1pt. min.). @ -None done What testing was considered but not performed or refused? (CT, X-rays, U/S, labs)? Why? @ -None What meds were considered but not given or refused? Why? @ -None Did you discuss the management of the patient with other professionals (professionals i.e. , PA, CONTENT STRATEGY LEAD, lab, RT, psych nurse, clinical social worker, paper conservator, teacher, safety patrol officer, complex case manager)? Give summary @ -Spoke with EPS nurse, Fadia, was recommended that by the patient's primary care provider that he increase his daily dosage of Cogentin from 0.5 mg 1 tab to 2 times per day. Patient is stable for discharge back to long term with evaluation by psychiatrist as scheduled. Was smoking cessation discussed for >3mins.? @ -No Was critical care preformed (if so, how long)? @ -No Were there social determinants of health that impacted care today? How? (Homelessness, low income, unemployed, alcoholism, drug addiction, transportation, low edu. Level, literacy, decrease access to med. care, long-term, rehab)? @ -No Was there de-escalation of care discussed even if they declined (Discuss DNR or withdrawal of care, Hospice)? DNR status @ -No What co-morbidities impacted this encounter? (DM, HTN, Smoking, COPD, CAD, Cancer, CVA, ARF, Chemo, Hep., AIDS, mental health diagnosis, sleep apnea, morbid obesity)? @ -None Was patient admitted / discharged? Hospital course, mention meds given and route, prescriptions, significant lab abnormalities, going to OR and other pertinent info. @ -Discharge. 38-year-old male with hallucinations. On my discussion with the patient he denies auditory, visual hallucinations. Initially is denying suicidal or homicidal ideations. Vitals are within normal limits. There are no acute findings of physical examination. There are no extraparametal symptoms notable on physical examination. Patient is evaluated by mental health nurse who is reported that patient is stable for discharge home with an increase in daily Cogentin to combat potential EPS side effects for medications. All questions answered at bedside and strict return parameters baldo with the patient he is verbalized understanding. Discussed with Dr. Carballo Undiagnosed new problem with uncertain prognosis? @ -No Drug Therapy requiring intensive monitoring for toxicity (Heparin, Nitro, Insulin, Cardizem)? @ -No Were any procedures done? @ -No Diagnosis/symptom? @ -schizophrenia, auditory/visual hallucinations Acute, or Chronic, or Acute on Chronic? @ -acute Uncomplicated (without systemic symptoms) or Complicated (systemic symptoms)? @ -uncomplicated Side effects of treatment? @ -No Exacerbation, Progression, or Severe Exacerbation? @ -No Poses a threat to life or bodily function? How? (Chest pain, [place], [place], pneumonia, PE, COPD, DKA, ARF, appy, cholecystitis, CVA, Diverticulitis, Homicidal, Suicidal, threat to staff... and all critical care pts) @ -No (Marci Romano) - Lab Data Lab Results 11/08/23 Range/Units 21:30 Urine Opiates Screen Not Detected (NotDetected) Ur Oxycodone Screen Not Detected (NotDetected) Urine Methadone Screen Not Detected (NotDetected) Ur Barbiturates Screen Not Detected (NotDetected) U Tricyclic Antidepress Not Detected (NotDetected) Ur Phencyclidine Scrn Not Detected (NotDetected) Ur Amphetamines Screen Not Detected (NotDetected) U Methamphetamines Scrn Not Detected (NotDetected) U Benzodiazepines Scrn Not Detected (NotDetected) Urine Cocaine Screen Not Detected (NotDetected) U Marijuana (THC) Screen Not Detected (NotDetected) Disposition <Chelsey Alamo - Last Filed: 11/09/23 00:43> Is patient prescribed a controlled substance at d/c from ED?: No Time of Disposition: 00:17 <Marci Romano - Last Filed: 11/09/23 17:09> Clinical Impression: Acute (undifferentiated) schizophrenia, Hallucinations Disposition: HOME SELF-CARE Condition: Good Additional Instructions: Return to the emergency department for any new or worsening symptoms. Recommend that patient increase his dosage of Cogentin 0.5 mg PO from one to two times per day. Recommend patient follows up as scheduled with psychiatrist as scheduled for further evaluation. Referrals: Kofi Sun MD [Primary Care Provider] - 1-2 days
[2023-11-08 22:05] LABS: Amphetamine Screen,Urine Not Detected (NotDetected); Barbiturate Screen,Urine Not Detected (NotDetected); Benzodiazepines Screen,Urine Not Detected (NotDetected); Cocaine Screen,Urine Not Detected (NotDetected); Methadone Screen, Urine Not Detected (NotDetected); Opiate Screen,Urine Not Detected (NotDetected); Oxycodone Screen, Urine Not Detected (NotDetected); Phencyclidine Screen,Urine Not Detected (NotDetected); Tricyclic Antidepressant,Urine Not Detected (NotDetected); Urn Cannabinoid Scrn Not Detected (NotDetected)
[2023-11-09 00:56] VITALS: BP 110/70; PULSE 80; TEMP 98
== END 2023-11-09 00:55 | disposition home or self-care (01) ==
LOC: EC 18:53
CPT/HCPCS: 80306; 82075; 99284

== ENCOUNTER 2023-11-09 21:37 | Emergency (ER) | payer OTHER ==
[2023-11-09 21:44] VITALS: RESP 18; TEMP 97.5
--- NOTE | 2023-11-09 22:20 | ED ---
Psych HPI - General Chief Complaint: Psychiatric Symptoms Stated Complaint: psych symptoms Time Seen by Provider: 11/09/23 21:52 Source: patient Mode of arrival: ambulatory - History of Present Illness Initial Comments: This patient is a 38-year-old man with history of schizophrenia who states that he is here to have evaluation because he is hearing voices. He has longstanding history of auditory hallucinations but states that today has been particularly bad. The patient denies other symptoms. He states that he gets his care through [facility] and did have recent medication change. MD Complaint: other Onset/Timin -: days(s) Associated Psychiatric Symptoms: racing thoughts, auditory hallucinations History of same: Yes Quality: getting worse Improves With: none Worsens With: none - Related Data Previous Rx's Medication Instructions Recorded Benztropine Mesylate [Cogentin] 0.5 mg PO HS 30 Days #30 tab 11/06/23 Nicotine Gum (Polacrilex) 2 mg BUCCAL Q4HR PRN 30 Days #180 11/06/23 [Nicorette] pieceofgum Sertraline [Zoloft] 50 mg PO DAILY 30 Days #30 tab 11/06/23 fluPHENAZine [Prolixin] 1 mg PO BID 3 Days #6 tab 11/06/23 fluPHENAZine decanoate [Prolixin 25 mg IM Q21D #1 ml 11/06/23 Decanoate] Allergies Allergy/AdvReac Type Severity Reaction Status Date / Time adhesive AdvReac Itching Verified 11/09/23 21:44 Review of Systems ROS Statement: Those systems with pertinent positive or pertinent negative responses have been documented in the HPI. ROS Other: All systems not noted in ROS Statement are negative. Constitutional: Denies: fever, weakness Eyes: Denies: vision change Respiratory: Denies: cough, dyspnea Cardiovascular: Denies: chest pain, palpitations, edema Gastrointestinal: Denies: abdominal pain, vomiting, diarrhea Genitourinary: Denies: dysuria, hematuria Musculoskeletal: Denies: back pain Skin: Denies: rash Neurological: Denies: headache, confusion Psychiatric: Reports: auditory hallucinations. Denies: visual hallucinations, homicidal thoughts, suicidal thoughts Past Medical History Past Medical History: GERD/Reflux Additional Past Medical History / Comment(s): anemia, growth delay, schizophrenia History of Any Multi-Drug Resistant Organisms: None Reported Past Surgical History: No Surgical Hx Reported Past Anesthesia/Blood Transfusion Reactions: No Reported Reaction Past Psychological History: Anxiety, Depression, Schizophrenia Smoking Status: Current every day smoker Past Alcohol Use History: None Reported Past Drug Use History: None Reported - Past Family History Father Additional Family Medical History / Comment(s): Stomach surgery of unknown reason. General Exam Limitations: no limitations General appearance: alert, in no apparent distress Head exam: Present: atraumatic, normocephalic Eye exam: Present: normal appearance. Absent: scleral icterus, conjunctival injection ENT exam: Present: normal oropharynx Neck exam: Present: normal inspection Respiratory exam: Present: normal lung sounds bilaterally. Absent: respiratory distress, wheezes, rales, rhonchi, stridor, accessory muscle use Cardiovascular Exam: Present: regular rate, normal rhythm, normal heart sounds. Absent: systolic murmur, diastolic murmur, rubs, gallop GI/Abdominal exam: Present: soft. Absent: distended, tenderness, guarding, rebound, rigid, mass Extremities exam: Present: normal inspection, normal capillary refill. Absent: pedal edema, calf tenderness Back exam: Present: normal inspection. Absent: CVA tenderness (R), CVA tenderness (L) Neurological exam: Present: alert Psychiatric exam: Absent: agitated, anxious, flat affect, manic, homicidal ideation, suicidal ideation Skin exam: Present: warm, dry, intact, normal color Course Vital Signs 11/09/23 11/10/23 21:39 00:27 Temperature 97.5 F L Pulse Rate 80 60 Respiratory 18 18 Rate Blood Pressure 113/78 106/62 O2 Sat by Pulse 99 98 Oximetry Medical Decision Making - Medical Decision Making Was pt. sent in by a medical professional or institution (, PA, ENGLISH LANGUAGE LEARNER TUTOR, urgent care, hospital, or penitentiary...) When possible be specific @ -[No] Did you speak to anyone other than the patient for history (EMS, parent, family, police, friend...)? What history was obtained from this source @ -[No] Did you review nursing and triage notes (agree or disagree)? Why? @ -[I reviewed and agree with nursing and triage notes] Were old charts reviewed (outside hosp., previous admission, EMS record, old EKG, old radiological studies, urgent care reports/EKG's, penitentiary records)? Report findings @ -[No old charts were reviewed] Differential Diagnosis (chest pain, altered mental status, abdominal pain women, abdominal pain men, vaginal bleeding, weakness, fever, dyspnea, syncope, headache, dizziness, GI bleed, back pain, seizure, CVA, palpatations, mental health, musculoskeletal)? @ -[Differential Mental Health Depression, anxiety, bipolar, psychosis, schizophrenia, borderline personality, situational depression, adjustment disorder, behavioral disorder, brain tumor, malingering, substance abuse, encephalopathy, medication reaction, dementia, hypothyroidism, degenerative neurologic disorder, lupus.... This is not meant to be all-inclusive list EKG interpreted by me (3pts min.). @ -[As above] X-rays interpreted by me (1pt min.). @ -[None done] CT interpreted by me (1pt min.). @ -[None done] U/S interpreted by me (1pt. min.). @ -[None done] What testing was considered but not performed or refused? (CT, X-rays, U/S, labs)? Why? @ -[None] What meds were considered but not given or refused? Why? @ -[None] Did you discuss the management of the patient with other professionals (professionals i.e. , PA, ENGLISH LANGUAGE LEARNER TUTOR, lab, RT, psych nurse, social security assessor, motion picture printer, teacher, aboriginal liaison officer, case management associate)? Give summary @ -[Discussed with EPS personnel Was smoking cessation discussed for >3mins.? @ -[No] Was critical care preformed (if so, how long)? @ -[No] Were there social determinants of health that impacted care today? How? (Homelessness, low income, unemployed, alcoholism, drug addiction, transportation, low edu. Level, literacy, decrease access to med. care, penitentiary, rehab)? @ -[No] Was there de-escalation of care discussed even if they declined (Discuss DNR or withdrawal of care, Hospice)? DNR status @ -[No] What co-morbidities impacted this encounter? (DM, HTN, Smoking, COPD, CAD, Cancer, CVA, ARF, Chemo, Hep., AIDS, mental health diagnosis, sleep apnea, morbid obesity)? @ -[None] Was patient admitted / discharged? Hospital course, mention meds given and route, prescriptions, significant lab abnormalities, going to OR and other pertinent info. @ -[Patient is seen and evaluated by EPS and after they discussed with the psychiatrist, patient stable to continue treatment as outpatient Undiagnosed new problem with uncertain prognosis? @ -[No] Drug Therapy requiring intensive monitoring for toxicity (Heparin, Nitro, Insulin, Cardizem)? @ -[No] Were any procedures done? @ -[No] Diagnosis/symptom? @ -[Acute psychosis Acute, or Chronic, or Acute on Chronic? @ -[Acute on chronic Uncomplicated (without systemic symptoms) or Complicated (systemic symptoms)? @ -[Uncomplicated Side effects of treatment? @ -[No] Exacerbation, Progression, or Severe Exacerbation? @ -[No] Poses a threat to life or bodily function? How? (Chest pain, USA, MD, pneumonia, PE, COPD, DKA, ARF, appy, cholecystitis, CVA, Diverticulitis, Homicidal, Suicidal, threat to staff... and all critical care pts) @ -[No] Disposition Clinical Impression: Chronic schizophrenia, Acute psychosis Disposition: HOME SELF-CARE Condition: Good Instructions (If sedation given, give patient instructions): Schizophrenia (ED) Is patient prescribed a controlled substance at d/c from ED?: No Referrals: Kofi Sun MD [Primary Care Provider] - 1-2 days
[2023-11-10 00:30] VITALS: BP 106/62; PULSE 60
== END 2023-11-10 00:38 | disposition home or self-care (01) ==
LOC: EC 21:37
DX: F99 Mental disorder, not otherwise specified
CPT/HCPCS: 82075; 99284

== ENCOUNTER 2024-06-06 09:29 | Emergency (ER) | payer OTHER ==
[2024-06-06 09:47] VITALS: PULSE 98; RESP 20; TEMP 98.2
[2024-06-06] MEDS: SODIUM CHLORIDE 0.9% 1,000 ML IV STA (11:48)
[2024-06-06 12:10] LABS: Basophils % (A) 0 %; Eosinophils # (A) 0.1 k/uL (0-0.7); Eosinophils % (A) 2 %; HGB 12.9 gm/dL (13.0-17.5); Hypochromasia Slight; Lymphocytes # (A) 0.8 k/uL (1.0-4.8); Lymphocytes % (A) 23 %; MCH 22.5 pg (25.0-35.0); MCHC 30.6 g/dL (31.0-37.0); MCV 73.4 fL (80.0-100.0); Mean Platelet Volume 6.9; Microcytosis Slight; Monocytes # (A) 0.2 k/uL (0-1.0); Monocytes % (A) 5 %; Neutrophils # (A) 2.3 k/uL (1.3-7.7); Neutrophils % (A) 67 %; Platelet Count 214 k/uL (150-450); RBC 5.72 m/uL (4.30-5.90); RDW 15.1 % (11.5-15.5); WBC 3.4 k/uL (3.8-10.6)
[2024-06-06 12:38] LABS: ALT 18 U/L (4-49); AST 24 U/L (17-59); African American GFR (CKD) >90 (>60 ml/min/1.73 sqM); Albumin 4.3 g/dL (3.5-5.0); Alkaline Phosphatase 63 U/L (38-126); Anion Gap 10 mmol/L; Blood Urea Nitrogen 11 mg/dL (9-20); Calcium 8.8 mg/dL (8.4-10.2); Carbon Dioxide 26 mmol/L (22-30); Chloride 102 mmol/L (98-107); Glucose 88 mg/dL (74-99); Lipase 116 U/L (23-300); Non-African American GFR(CKD) >90 (>60 ml/min/1.73 sqM); Potassium 4.1 mmol/L (3.5-5.1); Sodium 138 mmol/L (137-145); Total Bilirubin 0.3 mg/dL (0.2-1.3); Total Protein 8.1 g/dL (6.3-8.2)
[2024-06-06 12:54] LABS: Appearance,Urine Clear (Clear); Bilirubin,Urine Negative (Negative); Blood,Urine Negative (Negative); Color,Urine Yellow; Glucose,Urine (UA) Negative (Negative); Ketones,Urine Negative (Negative); Leukocyte Esterase,Urine Negative (Negative); Nitrite,Urine Negative (Negative); Protein,Urine Trace (Negative); Specific Gravity,Urine 1.021 (1.001-1.035); Urobilinogen,Urine <2.0 mg/dL (<2.0)
[2024-06-06 12:58] LABS: Influenza A Not Detected (Not Detectd); Influenza B Detected (Not Detectd); RSV Not Detected (Not Detectd)
--- NOTE | 2024-06-06 13:27 | ED ---
General Adult HPI - General Chief complaint: Nausea/Vomiting/Diarrhea Stated complaint: vomiting, fever Time Seen by Provider: 06/06/24 09:45 Source: patient, Caregiver Mode of arrival: ambulatory Limitations: no limitations - History of Present Illness Initial comments: 38-year-old male presents to the emergency department reporting cough and congestion. This morning he did have an episode of nausea with vomiting. Most of the history is presented by his front desk manager who was at bedside. He states that the patient has been watched recently as his blood work has been abnormal. There was concern for infection as the patient's white blood cell count has been high. Public Speaking Coach states that the only source of infection has been his teeth and therefore he is on an antibiotic mouthwash. Patient currently denies any nausea. No abdominal pain. No reported fevers. Denies chest pain or difficulty breathing. Does have sick contacts who have also had a cough. Patient was not provided with any medications before coming in. No other allevi ating, precipitating modifying factors - Related Data Previous Rx's Medication Instructions Recorded Benztropine Mesylate [Cogentin] 0.5 mg PO HS 30 Days #30 tab 11/06/23 Nicotine Gum (Polacrilex) 2 mg BUCCAL Q4HR PRN 30 Days #180 11/06/23 [Nicorette] pieceofgum Sertraline [Zoloft] 50 mg PO DAILY 30 Days #30 tab 11/06/23 fluPHENAZine [Prolixin] 1 mg PO BID 3 Days #6 tab 11/06/23 fluPHENAZine decanoate [Prolixin 25 mg IM Q21D #1 ml 11/06/23 Decanoate] Allergies Allergy/AdvReac Type Severity Reaction Status Date / Time No Known Allergies Allergy Verified 06/06/24 09:47 Review of Systems ROS Statement: Those systems with pertinent positive or pertinent negative responses have been documented in the HPI. ROS Other: All systems not noted in ROS Statement are negative. Past Medical History Past Medical History: GERD/Reflux Additional Past Medical History / Comment(s): anemia, growth delay, schizophrenia History of Any Multi-Drug Resistant Organisms: None Reported Past Surgical History: No Surgical Hx Reported Past Anesthesia/Blood Transfusion Reactions: No Reported Reaction Past Psychological History: Anxiety, Depression, Schizophrenia Smoking Status: Current every day smoker Past Alcohol Use History: None Reported Past Drug Use History: None Reported - Past Family History Father Additional Family Medical History / Comment(s): Stomach surgery of unknown reason. General Exam Limitations: no limitations General appearance: alert, in no apparent distress Head exam: Present: atraumatic, normocephalic, normal inspection Eye exam: Present: normal appearance, PERRL, EOMI. Absent: scleral icterus, conjunctival injection, periorbital swelling ENT exam: Present: normal exam, mucous membranes moist, other (poor dentition. no oral swelling) Neck exam: Present: normal inspection. Absent: tenderness, meningismus, lymphadenopathy Respiratory exam: Present: normal lung sounds bilaterally. Absent: respiratory distress, wheezes, rales, rhonchi, stridor Cardiovascular Exam: Present: regular rate, normal rhythm, normal heart sounds. Absent: systolic murmur, diastolic murmur, rubs, gallop, clicks GI/Abdominal exam: Present: soft, normal bowel sounds. Absent: distended, tenderness, guarding, rebound, rigid Extremities exam: Present: normal inspection, full ROM, normal capillary refill. Absent: tenderness, pedal edema, joint swelling, calf tenderness Back exam: Present: normal inspection Neurological exam: Present: alert, oriented X3, CN II-XII intact Psychiatric exam: Present: normal affect, normal mood Skin exam: Present: warm, dry, intact, normal color. Absent: rash Course Vital Signs 06/06/24 06/06/24 09:42 14:17 Temperature 98.2 F Pulse Rate 98 98 Respiratory 20 20 Rate Blood Pressure 92/69 97/64 O2 Sat by Pulse 96 96 Oximetry Medical Decision Making - Medical Decision Making Was pt. sent in by a medical professional or institution (, PA, FLUE TILE PRESS OPERATOR, urgent care, hospital, or [place] health care facility...) When possible be specific @ -No Did you speak to anyone other than the patient for history (EMS, parent, family, police, friend...)? What history was obtained from this source @ -Spoke with front desk manager for history Did you review nursing and triage notes (agree or disagree)? Why? @ -I reviewed and agree with nursing and triage notes Were old charts reviewed (outside hosp., previous admission, EMS record, old EKG, old radiological studies, urgent care reports/EKG's, [place] health [facility] facility records)? Report findings @ -No old charts were reviewed Differential Diagnosis (chest pain, altered mental status, abdominal pain women, abdominal pain men, vaginal bleeding, weakness, fever, dyspnea, syncope, headache, dizziness, GI bleed, back pain, seizure, CVA, palpatations, mental health, musculoskeletal)? @ -COVID, influenza, gastroenteritis EKG interpreted by me (3pts min.). @ -Not done X-rays interpreted by me (1pt min.). @ -None done CT interpreted by me (1pt min.). @ -None done U/S interpreted by me (1pt. min.). @ -None done What testing was considered but not performed or refused? (CT, X-rays, U/S, la bs)? Why? @ -None What meds were considered but not given or refused? Why? @ -Nausea medications however patient states he is not nauseated anymore Did you discuss the management of the patient with other professionals (professionals i.e. , PA, FLUE TILE PRESS OPERATOR, lab, RT, psych nurse, licensed social worker, swimming pool servicer, t eacher, emergency response officer, case operator)? Give summary @ -No Was smoking cessation discussed for >3mins.? @ -No Was critical care preformed (if so, how long)? @ -No Were there social determinants of health that impacted care today? How? (Homelessness, low income, unemployed, alcoholism, drug addiction, transportation, low edu. Level, literacy, decrease access to med. care, shelter, rehab)? @ -No Was there de-escalation of care discussed even if they declined (Discuss DNR or withdrawal of care, Hospice)? DNR status @ -No What co-morbidities impacted this encounter? (DM, HTN, Smoking, COPD, CAD, Cancer, CVA, ARF, Chemo, Hep., AIDS, mental health diagnosis, sleep apnea, morbid obesity)? @ -None Was patient admitted / discharged? Hospital course, mention meds given and route, prescriptions, significant lab abnormalities, going to OR and other pertinent info. @ -Upon arrival patient seen and evaluated in hallway 26. Thorough history and physical exam was performed. IV access was established and laboratory studies are conducted. Patient does not meet sepsis criteria. He is found to be positive for influenza. He has had no more vomiting. Patient be discharged home at this time. Instructed to take Motrin alternating with Tylenol for any fevers. Follow-up with his doctor in 2 to 4 days and return for any new or worsening symptoms. Patient agreeable plan was discharged in stable condition Undiagnosed new problem with uncertain prognosis? @ -No Drug Therapy requiring intensive monitoring for toxicity (Heparin, Nitro, Insulin, Cardizem)? @ -No Were any procedures done? @ -No Diagnosis/symptom? @ -Acute nausea with 1 episode of vomiting, acute cough, influenza Acute, or Chronic, or Acute on Chronic? @ -Acute Uncomplicated (without systemic symptoms) or Complicated (systemic symptoms)? @ -Complicated Side effects of treatment? @ -No Exacerbation, Progression, or Severe Exacerbation? @ -No Poses a threat to life or bodily function? How? (Chest pain, USA, [place], pneumonia, PE, COPD, DKA, ARF, appy, cholecystitis, CVA, Diverticulitis, Homicidal, Suicidal, threat to staff... and all critical care pts) @ -No - Lab Data Result diagrams: 06/06/24 11:52 06/06/24 11:52 Lab Results 06/06/24 06/06/24 06/06/24 Range/Units 11:52 11:52 11:52 WBC 3.4 L (3.8-10.6) k/uL RBC 5.72 (4.30-5.90) m/uL Hgb 12.9 L (13.0-17.5) gm/dL Hct 42.0 (39.0-53.0) % MCV 73.4 L (80.0-100.0) fL MCH 22.5 L (25.0-35.0) pg MCHC 30.6 L (31.0-37.0) g/dL RDW 15.1 (11.5-15.5) % Plt Count 214 (150-450) k/uL MPV 6.9 Neutrophils % 67 % Lymphocytes % 23 % Monocytes % 5 % Eosinophils % 2 % Basophils % 0 % Neutrophils # 2.3 (1.3-7.7) k/uL Lymphocytes # 0.8 L (1.0-4.8) k/uL Monocytes # 0.2 (0-1.0) k/uL Eosinophils # 0.1 (0-0.7) k/uL Basophils # 0.0 (0-0.2) k/uL Hypochromasia Slight Microcytosis Slight Sodium 138 (137-145) mmol/L Potassium 4.1 (3.5-5.1) mmol/L Chloride 102 (98-107) mmol/L Carbon Dioxide 26 (22-30) mmol/L Anion Gap 10 mmol/L BUN 11 (9-20) mg/dL Creatinine 0.89 (0.66-1.25) mg/dL Est GFR (CKD-EPI)AfAm >90 (>60 ml/min/1.73 sqM) Est GFR (CKD-EPI)NonAf >90 (>60 ml/min/1.73 sqM) Glucose 88 (74-99) mg/dL Plasma Lactic Acid Rasta 1.8 (0.7-2.0) mmol/L Calcium 8.8 (8.4-10.2) mg/dL Total Bilirubin 0.3 (0.2-1.3) mg/dL AST 24 (17-59) U/L ALT 18 (4-49) U/L Alkaline Phosphatase 63 (38-126) U/L Total Protein 8.1 (6.3-8.2) g/dL Albumin 4.3 (3.5-5.0) g/dL Lipase 116 (23-300) U/L Urine Color Urine Appearance (Clear) Urine pH (5.0-8.0) Ur Specific Oliver (1.001-1.035) Urine Protein (Negative) Urine Glucose (UA) (Negative) Urine Ketones (Negative) Urine Blood (Negative) Urine Nitrite (Negative) Urine Bilirubin (Negative) Urine Urobilinogen (<2.0) mg/dL Ur Leukocyte Esterase (Negative) Influenza Type A (PCR) (Not Detectd) Influenza Type B (PCR) (Not Detectd) RSV (PCR) (Not Detectd) SARS-CoV-2 (PCR) (Not Detectd) 06/06/24 06/06/24 Range/Units 11:52 12:19 WBC (3.8-10.6) k/uL RBC (4.30-5.90) m/uL Hgb (13.0-17.5) gm/dL Hct (39.0-53.0) % MCV (80.0-100.0) fL MCH (25.0-35.0) pg MCHC (31.0-37.0) g/dL RDW (11.5-15.5) % Plt Count (150-450) k/uL MPV Neutrophils % % Lymphocytes % % Monocytes % % Eosinophils % % Basophils % % Neutrophils # (1.3-7.7) k/uL Lymphocytes # (1.0-4.8) k/uL Monocytes # (0-1.0) k/uL Eosinophils # (0-0.7) k/uL Basophils # (0-0.2) k/uL Hypochromasia Microcytosis Sodium (137-145) mmol/L Potassium (3.5-5.1) mmol/L Chloride (98-107) mmol/L Carbon Dioxide (22-30) mmol/L Anion Gap mmol/L BUN (9-20) mg/dL Creatinine (0.66-1.25) mg/dL Est GFR (CKD-EPI)AfAm (>60 ml/min/1.73 sqM) Est GFR (CKD-EPI)NonAf (>60 ml/min/1.73 sqM) Glucose (74-99) mg/dL Plasma Lactic Acid Rasta (0.7-2.0) mmol/L Calcium (8.4-10.2) mg/dL Total Bilirubin (0.2-1.3) mg/dL AST (17-59) U/L ALT (4-49) U/L Alkaline Phosphatase (38-126) U/L Total Protein (6.3-8.2) g/dL Albumin (3.5-5.0) g/dL Lipase (23-300) U/L Urine Color Yellow Urine Appearance Clear (Clear) Urine pH 6.0 (5.0-8.0) Ur Specific Oliver 1.021 (1.001-1.035) Urine Protein Trace H (Negative) Urine Glucose (UA) Negative (Negative) Urine Ketones Negative (Negative) Urine Blood Negative (Negative) Urine Nitrite Negative (Negative) Urine Bilirubin Negative (Negative) Urine Urobilinogen <2.0 (<2.0) mg/dL Ur Leukocyte Esterase Negative (Negative) Influenza Type A (PCR) Not Detected (Not Detectd) Influenza Type B (PCR) Detected A (Not Detectd) RSV (PCR) Not Detected (Not Detectd) SARS-CoV-2 (PCR) Not Detected (Not Detectd) Disposition Clinical Impression: Vomiting, Influenza B Disposition: HOME SELF-CARE Condition: Stable Instructions (If sedation given, give patient instructions): Influenza (ED) Additional Instructions: Please follow-up with your primary care doctor in 2-4 days. Return for any new or worsening symptoms Is patient prescribed a controlled substance at d/c from ED?: No Referrals: Estella Serrano MD [Primary Care Provider] - 1-2 days Time of Disposition: 13:27
[2024-06-06 14:18] VITALS: BP 97/64
== END 2024-06-06 14:18 | disposition home or self-care (01) ==
LOC: EC 09:29
DX: R11.2 Nausea with vomiting, unspecified (principal); J10.1 Influenza due to other identified influenza virus with other respiratory manifestations; R05.9 Cough, unspecified; F17.200 Nicotine dependence, unspecified, uncomplicated
CPT/HCPCS: 36415; 80053; 81003; 83605; 83690; 85025; 87636; 96360; 99284

== ENCOUNTER 2024-10-05 19:57 | Emergency (ER) | payer OTHER ==
[2024-10-05 20:32] VITALS: RESP 18; TEMP 98.1
[2024-10-05 20:36] LABS: Glucose,Whole Blood 117 mg/dL (70-110)
--- NOTE | 2024-10-05 22:20 | ED ---
General Adult HPI - General Chief complaint: Headache Stated complaint: Shaking / Headache Time Seen by Provider: 10/05/24 21:19 Source: patient, RN notes reviewed Mode of arrival: ambulatory - History of Present Illness Initial comments: 39-year-old male presents to the emergency department with evaluation of headache and shakiness. Patient also reports that he was not feeling well physically and mentally. patient had requested to come to the emergency department therefore his caregiver brought him in. He does note that his symptoms are nearly resolved at this time. He reports that this started a few hour prior to arrival. Patient reports that he has a headache he did ask for Tylenol at his living facility which he did take. He notes that he had improvement in his headache with this. Patient reports that he is feeling better now. Patient notes hallucinations which are chronic with no changes at this time. He denies any SI or HI. He denies any recent fever, chills. - Related Data Previous Rx's Medication Instructions Recorded Benztropine Mesylate [Cogentin] 0.5 mg PO HS 30 Days #30 tab 11/06/23 Nicotine Gum (Polacrilex) 2 mg BUCCAL Q4HR PRN 30 Days #180 11/06/23 [Nicorette] pieceofgum Sertraline [Zoloft] 50 mg PO DAILY 30 Days #30 tab 11/06/23 fluPHENAZine [Prolixin] 1 mg PO BID 3 Days #6 tab 11/06/23 fluPHENAZine decanoate [Prolixin 25 mg IM Q21D #1 ml 11/06/23 Decanoate] Allergies Allergy/AdvReac Type Severity Reaction Status Date / Time No Known Allergies Allergy Verified 10/05/24 20:32 Review of Systems ROS Statement: Those systems with pertinent positive or pertinent negative responses have been documented in the HPI. ROS Other: All systems not noted in ROS Statement are negative. Past Medical History Past Medical History: GERD/Reflux Additional Past Medical History / Comment(s): anemia, growth delay, schizophrenia History of Any Multi-Drug Resistant Organisms: None Reported Past Surgical History: No Surgical Hx Reported Past Anesthesia/Blood Transfusion Reactions: No Reported Reaction Past Psychological History: Anxiety, Depression, Schizophrenia Smoking Status: Current every day smoker Past Alcohol Use History: None Reported Past Drug Use History: None Reported - Past Family History Father Additional Family Medical History / Comment(s): Stomach surgery of unknown reason. General Exam Limitations: no limitations General appearance: alert, in no apparent distress Head exam: Present: atraumatic, normocephalic, normal inspection Eye exam: Present: normal appearance, PERRL, EOMI. Absent: scleral icterus, conjunctival injection, periorbital swelling ENT exam: Present: normal exam, mucous membranes moist Neck exam: Present: normal inspection. Absent: tenderness, meningismus, lymphadenopathy Respiratory exam: Present: normal lung sounds bilaterally. Absent: respiratory distress, wheezes, rales, rhonchi, stridor Cardiovascular Exam: Present: regular rate, normal rhythm, normal heart sounds. Absent: systolic murmur, diastolic murmur, rubs, gallop, clicks GI/Abdominal exam: Present: soft. Absent: distended, tenderness, guarding, rebound, rigid Extremities exam: Present: normal inspection, full ROM, normal capillary refill. Absent: tenderness, pedal edema, joint swelling, calf tenderness Back exam: Present: normal inspection Neurological exam: Present: alert, oriented X3 Psychiatric exam: Present: normal affect, normal mood Skin exam: Present: warm, dry, intact, normal color. Absent: rash Course Vital Signs 10/05/24 10/05/24 20:29 22:51 Temperature 98.1 F 98.1 F Pulse Rate 89 97 Respiratory 18 18 Rate Blood Pressure 105/70 102/75 O2 Sat by Pulse 97 97 Oximetry Medical Decision Making - Medical Decision Making Was pt. sent in by a medical professional or institution (ÁNGEL Huang, RADIO MAINTAINER, urgent care, hospital, or half-way...) When possible be specific @ -No Did you speak to anyone other than the patient for history (EMS, parent, family, police, friend...)? What history was obtained from this source @ -Patient's caregiver from the retirement provided some history of this patient Did you review nursing and triage notes (agree or disagree)? Why? @ -I reviewed and agree with nursing and triage notes Were old charts reviewed (outside hosp., previous admission, EMS record, old EKG, old radiological studies, urgent care reports/EKG's, half-way records)? Report findings @ -No old charts were reviewed Differential Diagnosis (chest pain, altered mental status, abdominal pain women, abdominal pain men, vaginal bleeding, weakness, fever, dyspnea, syncope, headache, dizziness, GI bleed, back pain, seizure, CVA, palpatations, mental health, musculoskeletal)? @ -Differential Headache: Migraine, tension, cluster, carbon monoxide, central venous thrombosis, pension karma temporal arteritis, acute closure glaucoma, intercranial hemorrhage, mastoiditis, sinusitis, head injury, this is not meant to be an all-inclusive list. EKG interpreted by me (3pts min.). @ -None X-rays interpreted by me (1pt min.). @ -None done CT interpreted by me (1pt min.). @ -None done U/S interpreted by me (1pt. min.). @ -None done What testing was considered but not performed or refused? (CT, X-rays, U/S, labs)? Why? @ -None What meds were considered but not given or refused? Why? @ -None Did you discuss the management of the patient with other professionals (professionals i.e. Dr., PA, RADIO MAINTAINER, lab, RT, psych nurse, executive secretary social welfare, real estate coordinator, teacher, community service officer, lead case manager)? Give summary @ -No Was smoking cessation discussed for >3mins.? @ -No Was critical care preformed (if so, how long)? @ -No Were there social determinants of health that impacted care today? How? (Homelessness, low income, unemployed, alcoholism, drug addiction, transportation, low edu. Level, literacy, decrease access to med. care, assisted, rehab)? @ -No Was there de-escalation of care discussed even if they declined (Discuss DNR or withdrawal of care, Hospice)? DNR status @ -No What co-morbidities impacted this encounter? (DM, HTN, Smoking, COPD, CAD, Cancer, CVA, ARF, Chemo, Hep., AIDS, mental health diagnosis, sleep apnea, morbid obesity)? @ -None Was patient admitted / discharged? Hospital course, mention meds given and route, prescriptions, significant lab abnormalities, going to OR and other pertinent info. @ -Discharged. Patient to the emergency department for evaluation of multiple complaints of which seem to be chronic in nature. He does not improvement in his headache with a home dose of acetaminophen. He denies any complaints at this time and notes that he is feeling better. Patient also noted that is having issues with his mental health but with further questioning, the patient has chronic hallucinations with no change and denies SI or HI. Patient will be discharged back to his living facility with his caregiver. patient is agreeable with this. Patient stable at time of discharge. Case discussed with Dr. Bueno Undiagnosed new problem with uncertain prognosis? @ -No Drug Therapy requiring intensive monitoring for toxicity (Heparin, Nitro, Insulin, Cardizem)? @ -No Were any procedures done? @ -No Diagnosis/symptom? @ -headache Acute, or Chronic, or Acute on Chronic? @ -acute on chronic Uncomplicated (without systemic symptoms) or Complicated (systemic symptoms)? @ -uncomplicated Side effects of treatment? @ -No Exacerbation, Progression, or Severe Exacerbation? @ -No Poses a threat to life or bodily function? How? (Chest pain, [place], [place], pneumonia, PE, COPD, DKA, ARF, appy, cholecystitis, CVA, Diverticulitis, Homicidal, Suicidal, threat to staff... and all critical care pts) @ -No - Lab Data Lab Results 10/05/24 Range/Units 20:34 POC Glucose (mg/dL) 117 H (70-110) mg/dL POC Glu Cabinetmaker Supervisor ID Oscar Otero Disposition Clinical Impression: Encounter for medical assessment, Nausea Disposition: HOME SELF-CARE Condition: Stable Instructions (If sedation given, give patient instructions): Acute Headache (ED), Acute Nausea and Vomiting (ED) Additional Instructions: Utilize a gentle diet for the next 3 or so days. Is patient prescribed a controlled substance at d/c from ED?: No Referrals: Estella Serrano MD [Primary Care Provider] - 1-2 days
[2024-10-05 22:53] VITALS: BP 102/75; PULSE 97
== END 2024-10-05 22:53 | disposition home or self-care (01) ==
LOC: EC 19:57
DX: R11.0 Nausea (principal); F17.200 Nicotine dependence, unspecified, uncomplicated
CPT/HCPCS: 36415; 99283